=== PATIENT | male | born 1970 | race Caucasian/White ===

== ENCOUNTER → 2016-08-06 | Day surgery (SDC) | payer OTHER ==
[~2016-08-06] MED LIST: ATORVASTATIN CA10 M1 PO; AUGMENTIN 875-1 EACH PO; GLYBURIDE5 M1 PO; LISINOPRIL20 M1 PO; METFORMIN HCL1000 M1 PO; PERCOCET 5-3251 EACH PO; UNASYN 3 GM VIAL3 GM IV
--- NOTE | 2016-08-06 15:30 | Operative Report ---
Operative/Inv Procedure Report Surgery Date: 08/06/16 Name of Procedure: 1 split-thickness skin graft left foot 4 cm x 6 cm 2 negative pressure wound therapy left foot 3 intraoperative administration of ankle block anesthesia Pre-Operative Diagnosis: 1 nonhealing ulcer left foot 2 diabetic peripheral neuropathy Post-Operative Diagnosis: Same Estimated Blood Loss: scant Surgeon/Brake Operator: CHELA CROSS,ZAIN Perry, Chris Henderson Anesthesia: moderate sedation, block Operative/Procedure Note Note: After obtaining informed consent the patient was brought to the operating room placed on the operating table in supine position. The patient isn't securely fastened to the operating table utilizing safety belt. After administration of IV sedation, 10 mL of 0.5% Marcaine plain was infiltrated about the patient's left ankle. Left foot and ankle lower extremity within scrubbed prepped and draped in usual aseptic manner. Attention then directed distal medial left foot , where a 6 cm x 4 cm full-thickness lesion was identified. There was superficial slough overlying an otherwise uniformly granular wound bed. There is no probing or undermining identified. Minimal serous drainage identified. The wound there was curetted and then irrigated with 3 L normal sterile saline fissure 50,000 units of bacitracin. Following this, 1% lidocaine with epinephrine was infiltrated to the lateral left leg and a inch split- thickness skin graft was elevated. The graft was then maceration 1/2-1 was then fixated into the recipient site with skin kathleen at the margin followed by Adaptic and negative pressure wound therapy. The donor site was then dressed with bacitracin Xeroform and a dry sterile dressing. The patient is noted tolerate both procedure and anesthesia well and the patient was transported from the operating room to recovery by sent stable best assess intact all remaining digits left foot.
== END ==
LOC: STS 04:11
DX: E11.621 Type 2 diabetes mellitus with foot ulcer (principal); L97.522 Non-pressure chronic ulcer of other part of left foot with fat layer exposed; E11.42 Type 2 diabetes mellitus with diabetic polyneuropathy; Z79.84 Long term (current) use of oral hypoglycemic drugs; I10 Essential (primary) hypertension; F17.200 Nicotine dependence, unspecified, uncomplicated
CPT/HCPCS: J2001; J2250

== ENCOUNTER 2016-10-23 15:18 | Inpatient (IN) | payer OTHER ==
[~2016-10-23] VITALS: Ht 193 cm; Wt 106.6 kg
--- NOTE | 2016-10-23 17:41 | ED ANKLE/FOOT INJURY COMPLAINT ---
History of Present Illness General Chief Complaint: Lower Extremity Problems Stated Complaint: WOUND RT FOOT/SENT BY DANELLE Source: patient Exam Limitations: no limitations Vital Signs & Intake/Output Vital Signs & Intake/Output Vital Signs Date Time Temp Pulse Resp B/P Pulse O2 O2 Flow FiO2 Ox Delivery Rate 10/23 1907 98.0 92 16 136/74 99 Room Air 10/23 1542 99.0 105 16 149/87 96 Room Air Allergies Coded Allergies: venom-honey bee (UNKNOWN 07/05/16) Reconcile Medications Ampicillin Sodium/Sulbactam Na (Unasyn 3 Gm Vial) 3 GRAM VIAL 3 GM IV Q6 INFECTION Atorvastatin Calcium 10 MG TABLET 1 TAB PO QPM CHOLESTEROL (Reported) Glyburide 5 MG TABLET 1 TAB PO BID DIABETES (Reported) Lisinopril 20 MG TABLET 1 TAB PO DAILY HEART (Reported) Metformin HCl 1,000 MG TABLET 1 TAB PO BID DIABETES (Reported) Triage Note: PT STATES HIS RIGHT FOOT IS INFECTED AND PT WAS SENT IN BY DR. MCCLENDON FOR ADMISION FOR IV ABX Triage Nurses Notes Reviewed? yes Duration: day(s):, constant, getting worse Timing: recent history Severity: severe Pain/Injury Location: Right: Foot. No Modifying Factors: none HPI: 45-year-old male sent into emergency room for admission for infection to right foot. Patient is a diabetic and has chronic wounds on his right foot. Patient reports one opened up recently and has been having a foul-smelling discharge needs had associated redness the entire foot. Patient sees Dr. Fernandez at the wound care center. Dr. Tejeda sent the patient to be admitted for antibiotics and he will need surgical debridement. Moderate amount of pain to the right foot. Denies any other associated symptoms. (MARCIN VASQUEZ) Past History Travel History Traveled to [place] past 21 day No Medical History Any Pertinent Medical History? see below for history Neurological: NONE EENT: NONE Cardiovascular: hypertension Respiratory: NONE Hepatic: NONE Renal: NONE Musculoskeletal: osteomyelitis R GREAT TOE AMP Psychiatric: NONE Endocrine: diabetes Blood Disorders: NONE Cancer(s): NONE MORTGAGE CONSULTANT/Reproductive: NONE History of MRSA: Yes History of VRE: No History of CDIFF: No Surgical History Surgical History: appendectomy, right great toe amputation Psychosocial History Who do you live with Spouse Services at Home None What is your primary language Latvian Tobacco Use: Current Daily Use Daily Tobacco Use Amount/Type: => 5 Cigarettes daily ETOH Use: occasional use Illicit Drug Use: denies illicit drug use Family History Hx Contributory? No (MARCIN VASQUEZ) Review of Systems Review of Systems Constitutional: Reports: no symptoms. EENTM: Reports: no symptoms. Respiratory: Reports: no symptoms. Cardiovascular: Reports: no symptoms. GI: Reports: no symptoms. Genitourinary: Reports: no symptoms. Musculoskeletal: Reports: see HPI. Skin: Reports: see HPI. Neurological/Psychological: Reports: no symptoms. Hematologic/Endocrine: Reports: no symptoms. Immunologic/Allergic: Reports: no symptoms. All Other Systems: Reviewed and Negative (MARCIN VASQUEZ) Physical Exam Physical Exam General Appearance: well developed/nourished Head: atraumatic Eyes: Bilateral: normal appearance. Ears, Nose, Throat: normal ENT inspection, hearing grossly normal Neck: normal inspection Cardiovascular/Respiratory: no respiratory distress Back: normal inspection Leg/Knee/Thigh Left: normal inspection Leg/Knee/Thigh Right: normal inspection Foot Right: to open wounds to bottom of right foot, surrounding erythema warmth, foul-smelling discharge, Neuro/Vascular: normal motor function Psychiatric: awake, alert, oriented x 3 Skin: intact, normal color, warm/dry (MARCIN VASQUEZ) Progress Differential Diagnosis: cellulitis, septic arthritis, gout, fracture, dislocation, sprain, contusion, compartmental syndrome Plan of Care: Orders Procedure Date/time Status Consistent Carbohydrate 3 10/23 D Active Code Status 10/23 2216 Active EXTREMETIES OR SPEC 10/23 2116 Active Lab Add-on Test 10/24 2047 Active TRC EVALUATION (GEN) 10/24 2027 Active OXYGEN SETUP (GEN) 10/24 2027 Active Pathway - chart 10/24 2027 Active House Staff 10/24 2027 Active Patient Data 10/24 2027 Active FingerStick- Glucose 10/23 2006 Active Intake & Output 10/23 1903 Active Patient Data 10/23 1843 Active GLYCOSYLATED HGB 10/23 1754 Active EKG 10/23 1747 Active BLOOD CULTURE 10/23 1734 Active WESTERGREN SED RATE 10/23 1734 Complete C-REACTIVE PROTEIN 10/23 1734 Active CBC WITHOUT DIFFERENTIAL 10/23 173 Complete BASIC METABOLIC PANEL 10/23 1734 Active VTE Mechanical Prophylaxis 10/23 UNK Active Vital Signs 10/23 UNK Active MISTAKE 10/23 UNK Active Nursing Misc 10/23 UNK Active Hemoccult 10/23 UNK Active FingerStick- Glucose 10/23 UNK Active Current Medications Sig/Kory Start time Last Medication Dose Stop Time Status Admin Insulin Aspart 0 TIDAC 10/24 0800 UNVr (NovoLOG) Ampicillin Sodium/ 3,000 MG Q6 10/23 2359 UNVr Sulbactam Sodium (Unasyn) Sodium Chloride 100 ML (Normal Saline 0.9%) Dextrose/Sodium 1,000 ML Q13H 10/230 UNVr Chloride (D5W-1/2 Normal Saline 1000ML) Vancomycin HCl 1,000 MG DAILY 10/23 2157 UNir Sodium Chloride 250 ML (Normal Saline 0.9%) Laboratory Tests 10/23/16 1754: Anion Gap 13, Estimated GFR > 60, BUN/Creatinine Ratio 17.8, Glucose 73, Hemoglobin A1c Pending, Calcium 9.6, C-Reactive Prot, Quant > 9.0 H, CBC w Diff NO MAN DIFF REQ, RBC 4.80, MCV 88.9, MCH 29.0, RDW 14.5, MPV 6.7 L, Gran % 67.2 , Lymphocytes % 13.6 L, Monocytes % 9.2, Eosinophils % 9.5 H, Basophils % 0.5, Absolute Granulocytes 11.8 H, Absolute Lymphocytes 2.4, Absolute Monocytes 1.6 H, Absolute Eosinophils 1.7, Absolute Basophils 0.1, PUBS MCHC 32.6 L, ESR Westergren 69 H Microbiology 10/23 2116 EXTREMITIE: Gross Specimen Examination - RECD 10/23 2116 EXTREMITIE: Gram Stain - RECD 10/23 2099 EXTREMITIE: Gross Specimen Examination - CAN Cancelled: Cancelled via OE: ERROR 10/23 2099 EXTREMITIE: Gram Stain - CAN Cancelled: Cancelled via OE: ERROR 10/23 182 BLOOD: Blood Culture - RECD 10/23 1753 BLOOD: Blood Culture - RECD Diagnostic Imaging: Viewed by Me: Radiology Read. Discussed w/RAD: Radiology Read. Radiology Impression: SERVICE DATE: 10/23/16-173 EXAM TYPE: RAD - XRY-FOOT COMPLETE, R EXAMINATION: XR FOOT, RIGHT CLINICAL INFORMATION: Open wound bottom of right foot rule out osteomyelitis COMPARISON: Right foot films from 2016 TECHNIQUE: 3 views of the right foot of the right foot. FINDINGS: The first metatarsal and phalanges are absent. There is an old healed fracture of the distal second metatarsal. Heterotopic bone is seen in the soft tissues medial to the second metatarsal. All of these findings are similar to the previous examination. There is some soft tissue swelling and ulceration in the ball of the right foot between the second and third metatarsal phalangeal joints. This is similar in appearance to the prior study. There is some increased soft tissue edema. No progressive or acute bone erosion to suggest osteomyelitis is seen at this time. Early changes of osteomyelitis may not be radiographically apparent. IMPRESSION: Films of the right foot show soft tissue ulceration and soft tissue swelling at the ball of the foot between the second and third metatarsal phalangeal joints. This is similar to prior study. No radiographic evidence for acute osteomyelitis at this time. Early changes may not be radiographically apparent.. DICTATED BY: RYANNE FROST MD DATE/TIME DICTATED:10/23/161906 RESILIENT TILE INSTALLER:ASMITA DATE/TIME TRANSCRIBED:10/23/161906 Initial ED EKG: normal intervals, normal p-waves, normal QRS complex, normal sinus rhythm, rate (90) (MARCIN VASQUEZ) Departure Departure Disposition: STILL A PATIENT Condition: Stable Clinical Impression Primary Impression: Complicated wound infection Secondary Impressions: Cellulitis of foot Referrals: KARTHIK GIBSON (PCP/Family) Departure Forms: Customer Survey General Discharge Information Admission Note Spoke With: KIMBERLY BOBO,[place] Forrest Documentation of Exam: Documentation of any treatments & extenuating circumstances including Concerns Regarding Discharge (functional status, medication knowledge or non-compliance, living conditions, etc.) that warrant an admission rather than observation: Patient will require surgical debridement. IV antibiotics. Diabetes management. (MARCIN VASQUEZ) PA/GROUND TRANSPORTATION OPERATOR Co-Sign Statement Statement: ED Attending supervision documentation- [] I saw and evaluated the patient. I have also reviewed all the pertinent lab results and diagnostic results. I agree with the findings and the plan of care as documented in the PA's/GROUND TRANSPORTATION OPERATOR's documentation. [X] I have reviewed the ED Record and agree with the PA's/GROUND TRANSPORTATION OPERATOR's documentation. [] Additions or exceptions (if any) to the PAs/GROUND TRANSPORTATION OPERATOR's note and plan are summarized below: [] (LEAH BOBO,DANIEL Hawk)
[2016-10-23 18:16] LABS: ABSOLUTE BASOPHIL COUNT 0.1 /CUMM (0.0-0.2); ABSOLUTE EOSINOPHIL COUNT 1.7 /CUMM (0.0-0.7); ABSOLUTE GRANULOCYTE CT 11.8 /CUMM (1.4-6.5); ABSOLUTE LYMPH COUNT 2.4 /CUMM (1.2-3.4); ABSOLUTE MONOCYTE COUNT 1.6 /CUMM (0.10-0.60); BASOPHIL % 0.5 % (0.0-2.0); EOSINOPHIL % 9.5 % (0-5); GRANULOCYTE % 67.2 % (42.2-75.2); HEMATOCRIT 42.7 % (42-52); MEAN CORPUSCULAR HGB CONC 32.6 G/DL (33.0-37.0); MEAN CORPUSCULAR VOLUME 88.9 FL (80.0-94.0); MEAN PLATELET VOLUME 6.7 FL (7.4-10.4); PLATELET COUNT 415 /CUMM (130-400); RBC DISTRIBUTION WIDTH 14.5 % (11.5-14.5); WHITE BLOOD CELL COUNT 17.6 /CUMM (4.8-10.8)
--- NOTE | 2016-10-23 19:16 | RADIOLOGY REPORT ---
EXAMINATION: XR FOOT, RIGHT CLINICAL INFORMATION: Open wound bottom of right foot rule out osteomyelitis COMPARISON: Right foot films from 10/17/2016 TECHNIQUE: 3 views of the right foot of the right foot. FINDINGS: The first metatarsal and phalanges are absent. There is an old healed fracture of the distal second metatarsal. Heterotopic bone is seen in the soft tissues medial to the second metatarsal. All of these findings are similar to the previous examination. There is some soft tissue swelling and ulceration in the ball of the right foot between the second and third metatarsal phalangeal joints. This is similar in appearance to the prior study. There is some increased soft tissue edema. No progressive or acute bone erosion to suggest osteomyelitis is seen at this time. Early changes of osteomyelitis may not be radiographically apparent. IMPRESSION: Films of the right foot show soft tissue ulceration and soft tissue swelling at the ball of the foot between the second and third metatarsal phalangeal joints. This is similar to prior study. No radiographic evidence for acute osteomyelitis at this time. Early changes may not be radiographically apparent..
--- NOTE | 2016-10-23 20:50 | History & Physical ---
URVASHI ELLIOTT 10/23/162046: General Information and HPI MD Statement: I have seen and personally examined MARILEE WOODWARD and documented this H&P. The patient is a 45 year old M who presented with a patient stated chief complaint of right foot infection. 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 Curry for evaluation of the right foot infection. According to the patient, he has nonhealing diabetic ulcers on the plantar aspect of right foot. However he noticed a new blister on the plantar aspect of right foot. He took the picture and sent to Dr. Curry and he was advised to come to the clinic. Yesterday he was seen by Dr. Curry at the clinic and was advised to go to the emergency room to get IV antibiotic and surgical debridement. Patient reports chills, denies any fever. He denied any trauma to the foot. Denied any bites, scratching. He reports no drainage at the site of blister. Foot was red and inflamed. Denies any pain at the site of ulcer. Associated with redness, warmth and subjective chills. Of note patient has history of diabetes for 20 years. He takes gliburide and metformin at home. According to the patient his blood sugars were under control. He was never hypoglycemic. His blood sugars were below 150. His last HbA1c was 6.3. Compliant with the diet and medications He denied any chest pain, shortness of breath, palpitations, nausea, vomiting, diarrhea, constipation, abdominal pain, leg swelling. He follows Dr. [facility]. Allergies/Medications Allergies: Coded Allergies: venom-honey bee (UNKNOWN 07/05/16) Home Med list Ampicillin Sodium/Sulbactam Na (Unasyn 3 Gm Vial) 3 GRAM VIAL 3 GM IV Q6 INFECTION Atorvastatin Calcium 10 MG TABLET 1 TAB PO QPM CHOLESTEROL (Reported) Glyburide 5 MG TABLET 1 TAB PO BID DIABETES (Reported) Lisinopril 20 MG TABLET 1 TAB PO DAILY HEART (Reported) Metformin HCl 1,000 MG TABLET 1 TAB PO BID DIABETES (Reported) Compliance With Home Meds: GOOD Past History Travel History Traveled to [place] past 21 day No Medical History Neurological: NONE EENT: NONE Cardiovascular: hypertension Respiratory: NONE Hepatic: NONE Renal: NONE Musculoskeletal: osteomyelitis R GREAT TOE AMP Psychiatric: NONE Endocrine: diabetes Blood Disorders: NONE Cancer(s): NONE 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 Denies: diaphoresis, fever, malaise, weakness, unexplained weight loss. EENTM: Denies: no symptoms. Cardiovascular: Denies: chest pain, edema, orthopena, palpitations, peripheral edema, syncope. Respiratory: Denies: cough, hemoptysis, orthopnea, short of breath, sputum production, stridor. GI: Denies: abdominal pain, constipation, diarrhea, nausea, changes in stool, vomiting. Genitourinary: Denies: frequency, hematuria. Musculoskeletal: Denies: back pain, joint pain. Skin: Denies: erythema. Neurological/Psychological: Denies: headache, numbness, tingling, tremors. Exam & Diagnostic Data Last 24 Hrs of Vital Signs/I&O Vital Signs Date Time Temp Pulse Resp B/P Pulse O2 O2 Flow FiO2 Ox Delivery Rate 10/23 1907 98.0 92 16 136/74 99 Room Air 10/23 1542 99.0 105 16 149/87 96 Room Air Intake & Output 10/23 1600 10/23 0800 10/23 0000 Intake Total Output Total Balance Patient 106.594 kg Weight Physical Exam General Appearance Alert, Oriented X3, Cooperative, No Acute Distress Skin No Rashes, No Breakdown HEENT Atraumatic, PERRLA, EOMI, Mucous Membr. moist/pink Neck Supple, No JVD, No thryomegaly Lymphatic Axillary nl, Cervical nl Cardiovascular Regular Rate, Normal S1, Normal S2 Lungs Clear to Auscultation Abdomen Normal Bowel Sounds, Soft, No Tenderness Neurological Strength at 5/5 X4 Ext, Normal Tone, Sensation Intact, Cranial Nerves 3-12 NL, Reflexes 2+ Extremities No Clubbing, No Cyanosis, No Edema, Normal Pulses, non healing ulcer and blister on right foot, red and inflamed, no drainage Vascular Normal Pulses Last 24 Hrs of Labs/Dany: Laboratory Tests 10/23/161753: Anion Gap 13, Estimated GFR > 60, BUN/Creatinine Ratio 17.8, Glucose 73, Hemoglobin A1c Pending, Calcium 9.6, C-Reactive Prot, Quant > 9.0 H, CBC w Diff NO MAN DIFF REQ, RBC 4.80, MCV 88.9, MCH 29.0, RDW 14.5, MPV 6.7 L, Gran % 67.2 , Lymphocytes % 13.6 L, Monocytes % 9.2, Eosinophils % 9.5 H, Basophils % 0.5, Absolute Granulocytes 11.8 H, Absolute Lymphocytes 2.4, Absolute Monocytes 1.6 H, Absolute Eosinophils 1.7, Absolute Basophils 0.1, PUBS MCHC 32.6 L, ESR Westergren 69 H Microbiology 10/23 2116 EXTREMITIE: Gross Specimen Examination - RECD 10/23 2116 EXTREMITIE: Gram Stain - RECD 10/23 2099 EXTREMITIE: Gross Specimen Examination - CAN Cancelled: Cancelled via OE: ERROR 10/23 2099 EXTREMITIE: Gram Stain - CAN Cancelled: Cancelled via OE: ERROR 10/23 1824 BLOOD: Blood Culture - RECD 10/23 1753 BLOOD: Blood Culture - RECD Diagnostic Data EKG Results Normal sinus rhythm, no acute ST-T wave changes Assessment/Plan Assessment: Patient is a 45-year-old gentleman with a past medical history significant for type 2 diabetes mellitus, 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 Curry for evaluation of the right foot infection. According to the patient, he has nonhealing diabetic ulcers on the plantar aspect of right foot. However he noticed a new blister on the plantar aspect of right foot. He took the picture and sent to Dr. Curry and he was advised to come to the clinic. Yesterday he was seen by Dr. Curry at the clinic and was advised to go to the emergency room to get IV antibiotic and surgical debridement. Vitals on admission-afebrile, tachycardic 105, respiratory rate 16, blood pressure 149/87, saturating at 96% on room air. On examination right lower extremity has 1 cm deep ulcer in between second and third metatarsal, blister below that ulcer without any discharge, redness, warmth, nontender. Right great toe was amputated. Left great toe was amputated. Peripheral pulses were present. Labs leukocytosis and elevated CRP. Foot x-ray -Films of the right foot show soft tissue ulceration and soft tissue swelling at the ball of the foot between the second and third metatarsal phalangeal joints. This is similar to prior study. No radiographic evidence for acute osteomyelitis at this time. Problem list 1. Diabetic foot infection 2. Diabetes mellitus 3. Hypertension 4. Hyperlipidemia 5. 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 * Admitted to general med floor for further management and surgical debridement * Monitor vitals closely * Monitor for any fever, chills, worsening pain at the site of ulcer * He is status post open incision and drainage and excisional debridement * On IV antibiotic-IV vancomycin and IV Unasyn as patient has history of mrsa right fourth in the past * Pain medication if necessary * IV fluids * We'll obtain blood cultures twice * We'll monitor CBC in the morning * X-ray ruled out osteomyelitis * Will get MRI foot if necessary * Will follow up with Dr. Patricio martinez type 2 diabetes: Patient has decreased sensation in lower extremities, likely diabetic peripheral neuropathy, last hemoglobin A1c 7.5 (June 2016). Per patient, he measures his blood glucose levels daily and is compliant with his oral diabetic medications including metformin and glyburide. He is glucose levels ranging between 100 to 130s. Has never experienced episode of hypoglycemia. Patient received IV dextrose before OR, repeat fingerstick was 89. * Accu-Cheks before each meal and at bedtime * Insulin sliding scale. * Will hold oral diabetes medications. * Diabetic diet Hypertension Continue home dose of lisinopril Hyperlipidemia Continue home dose of statin DVT prophylaxis: Subcutaneous heparin CODE STATUS: Patient is full code. Diabetic diet Pain medication if necessary As Ranked By This Provider Problem List: 1. Cellulitis of foot 2. Complicated wound infection Core Measures/Miscellaneous Acute Coronary Syndrome ACS Diagnosis: No Cerebrovascular Accident CVA/TIA Diagnosis: No Congestive Heart Failure CHF Diagnosis: No Venous Thromboembolism VTE Risk Factors: Age > 40, Smoking, Surgery No [facility] VTE prophylaxis d/t: No contraindications No VTE Pharm Prophylaxis d/t: No contraindications VTE Diagnosis: No VTE Type: NONE VTE Confirmed by (Test): NONE Severe Sepsis Severe Sepsis Present: No Septic Shock Septic Shock Present: No Miscellaneous Documentation Attending Case Discussed With: shaun Primary Care Physician: KARTHIK GIBSON Patient sees these Specialists vascular surgeon Level of Patient Care: General Medicine JAMEY ANAYA 10/23/16 2135: Resident Review Statement Resident Statement: examined this patient, discussed with graphic design intern, agreed with graphic design intern, reviewed EMR data (avail), reviewed images Other Findings: This is a 45-year-old gentleman with past medical history significant for type 2 diabetes (diagnosed when he was 22 years old), MRSA osteomyelitis, status post amputation of right great toe and left great toe, hyperlipidemia, hypertension who presented to the hospital with nonhealing right lower extremity wound with blister for 2 days. Please see above for more details. VSS, NAD, AAO 3, HEENT: HNCAT, PERRLA, EOMI, neck: Supple, no LAD CV: RRR, no murmur. Lungs: CTA BL. Abdomen: Normal bowel sounds, soft, NT, ND. Extremities: Weak pulses lower extremities bilaterally. Left foot status post right great toe amputation. Right foot status post right great toe amputation, deep ulcer present between the second and third metatarsal 1-1.5 cm dimension, no pus, blister noted below the ulcer. Right lower extremity is erythematous. Decreased sensation in lower extremities. Labs on admission significant for leukocytosis (17.6), hemoglobin 13.9, platelet 415, fingerstick blood glucose level 54. Foot x-ray on admission showed soft tissue ulceration and soft tissue swelling at the ball of the foot between the second and third metatarsal phalangeal joints. No radiographic evidence for acute osteomyelitis. Patient received IV dextrose and was taken to the OR for debridement. Problem list/plan: #1 right lower extremity nonhealing ulcer: Status post open I&D and excision or debridement, will obtain blood cultures 2, will start the patient on IV vancomycin and IV Unasyn pending cultures. Consider MRI, patient will benefit from ankle brachial index measurement. Patient is not complaining of the pain at the moment. Adequate pain management with when necessary Tylenol and oxycodone. Would consult wound care. #2 type 2 diabetes: Patient has decreased sensation in lower extremities, likely diabetic peripheral neuropathy, last hemoglobin A1c 7.5 (June 2016). Per patient, he measures his blood glucose levels daily and is compliant with his oral diabetic medications including metformin and glyburide. He is glucose levels ranging between 100 to 130s. Has never experienced episode of hypoglycemia. Patient received IV dextrose before OR, repeat fingerstick was 89. Will start the patient on was containing IV fluids. Will check blood glucose levels closely. Insulin sliding scale. Will hold oral diabetes medications. #4 DVT prophylaxis: Subcutaneous heparin #5 continue home medications of statin and lisinopril. #6 CODE STATUS: Patient is full code. #Smoking cessation counseling done. BRAD DOAN 10/23/16 2350: Attending MD Review Statement Attending Statement Attending MD Statement: examined this patient, discuss w/resident/PA/FLOWER POT PRESS OPERATOR, agreed w/resident/PA/FLOWER POT PRESS OPERATOR, reviewed EMR data (avail), reviewed images, amended to note Attending Assessment/Plan: CC: right foot wound PMH: DM, HTN, HLD, current smoker Patient came to ER for admission for infection to right foot. Patient has chronic nonhealing ulcer on his right foot. Patient sees Dr. Fernandez at the wound care center. He started to develop second blister just below the first ulcer since 2 days, he did not have any pain, felt as if there was a stone in his shoe, walked on that wound for 1 day, then removed the issues and saw the blister. It is associated with redness, warmth, subjective chills. Patient denies any new trauma, bites, fever, discharge through the wound. He discussed it with Dr. Tejeda who sent him to ER to be admitted for antibiotics and possible surgical debridement. Vitals: T max 99.0, tachycardic otherwise vitals stable. A O 3, cooperative, no acute distress, neck supple, no JVD, no lymphadenopathy, mucosa moist, no focal neurological deficit, no dependent edema, CVS: S1-S2, RRR. RS: Clear to auscultate bilaterally. Abdomen: Soft, NT, ND, bowel sounds present. Right lower extremity has one and half centimeter deep ulcer in between second and third metatarsal, there is a blister below that ulcer without any pus discharge, mild fluctuation, red, warm, tender. Rest of the right lower extremity has mild edema, redness, increased warmth as compared to left lower extremity. Amputated toe on the right side and on the left side. Periphery pulses present but decreased, perfusion normal. Labs: WBC 17.6, with neutrophils 67%, eosinophils 9%, platelets 415, creatinine 0.9, BUN 16, CRP more than 9. Right foot x-ray: Films of the right foot show soft tissue ulceration and soft tissue swelling at the ball of the foot between the second and third metatarsal phalangeal joints. This is similar to prior study. No radiographic evidence for acute osteomyelitis at this time. Early changes may not be radiographically apparent. A and P #1 diabetic foot infection: (Hx of Left great toe amputation June 2016, right great toe amputation May 2013 , secondary to osteomyelitis) chronic nonhealing ulcer on the right foot on plantar aspect, a new blister on seeing foot just below the previous ulcer, x-ray shows no evidence of osteomyelitis, high index of suspicion for osteomyelitis. Admit to general medicine floor, Patient underwent debridement, after debridement the resident vancomycin and Unasyn as patient has history of MRSA on the right foot. Mixed infection is very possible with diabetic foot. Await for culture to tailor the antibiotic. Meanwhile patient will benefit from MRI of right foot, to decide the duration of antibiotic for suspected osteomyelitis. Will appreciate Dr. Fernandez's input in this situation. Adequate pain control, wound care consult. Blood cultures if not sent, gentle hydration D5 1/2 NS, Advance diet after the surgery. Patient will benefit from MELVIN. counseled regarding smoking sensation #2 DM: continue short acting slinding scale insulin , with Accu-Cheks before meals and at bedtime, hold oral hypoglycemics #3 HTN: Resume his antihypertensive medications from tomorrow
--- NOTE | 2016-10-23 21:56 | Operative Report ---
Operative/Inv Procedure Report Surgery Date: 10/23/16 Name of Procedure: 1 open incision and drainage deep to the D fashion with exposure of the flexor tendon and tendon sheath multiple sites right foot 2 intraoperative administration of ankle block anesthesia 3 excisional debridement Pre-Operative Diagnosis: 1 plantar space abscess right foot 2 diabetic peripheral neuropathy Post-Operative Diagnosis: The same Estimated Blood Loss: less than 50ml Surgeon/Seafood Specialist: ZAIN YORK DPM Anesthesia: moderate sedation, block Operative/Procedure Note Note: After obtaining informed consent the patient was brought to the operating room and placed on the operating table in the supine position. The patient was then securely fastened to the operating table utilizing a safety belt. After administration of IV sedation, 10 mL of 0.5% Marcaine plain was infiltrated about the patient's right ankle. Right foot and ankle within scrubbed prepped and draped in usual aseptic manner. Attention directed the plantar foot, where a necrotic was identified centrally extending from a chronic ulceration. This was noted to track along the flexor tendons proximally by 12-14 cm. A 10 blade was utilized to incise the necrotic region proximally. The dissection was then carried down deep to the D fashion with exposure of the flexor tendon and tendon sheath multiple sites, both proximally and distally. All necrotic nonviable infected tissue sharply evacuated from the wound bed. Soft tissue specimen was sent for microbiologic inspection. Clinically, there was no obvious exposed bone. Nipple was then irrigated with 3 L of normal sterile saline infusion 50, 000 units of bacitracin. Following this, the foot was redraped and the surgeon' s top gloves were exchanged for clean gloves. Any bleeding vessels identified were cauterized or ligated as encountered. Nipple was then packed with iodoform and 20 9 nylon retention sutures were placed. Foot was then dressed with 4 x 4' s EBD pad Kerlix and an Roe wrap. The patient was noted to tolerate both procedure and anesthesia well and the patient was transported from the operating room to recovery with vital signs stable.
[2016-10-23 22:00] VITALS: BP 122/72
--- NOTE | 2016-10-23 23:52 | Admission Certification ---
Admission Certification Certification Statement - As attending physician, I certify that at the time of - admission, based on clinical presentation, severity of - symptoms, need for further diagnostic testing and - therapeutic interventions, and risk of adverse outcomes - without in-hospital treatment, in my clinical assessment, - this patient requires an acute hospital stay for a minimum - of two nights or longer. I have also considered psychsocial - factors such as support system, advanced age, financial - issues, cognitive issues, and failed out-patient treatments, - past re-admission history, safety of patient, and lack of - compliance as applicable. Specific rationale supporting this admission is: Diabetic foot infection
[2016-10-24 00:05] VITALS: BP 130/76
[2016-10-24 02:30] VITALS: BP 126/70
[2016-10-24 04:30] VITALS: BP 120/72
--- NOTE | 2016-10-24 07:07 | PN- Housestaff ---
Subjective Follow-up For: Suspected Osteomyelitis of right foot Complaints: no complaints Subjective: Be followed up and examined the patient today. He is resting comfortably in the bed, has bilateral dressings over his feet, is comfortable, not in any acute distress. He offers no complaint, vitals have been stable and no issues overnight. Review of Systems Constitutional: Reports: no symptoms. EENTM: Reports: no symptoms. Cardiovascular: Reports: no symptoms. Respiratory: Reports: no symptoms. Gastrointestinal: Reports: no symptoms. Genitourinary: Reports: no symptoms. Musculoskeletal: Reports: no symptoms. Skin: Reports: no symptoms. Neurological/Psychological: Reports: no symptoms. Hematologic/Endocrine: Reports: no symptoms. Objective Last 24 Hrs of Vital Signs/I&O Vital Signs Date Time Temp Pulse Resp B/P Pulse O2 O2 Flow FiO2 Ox Delivery Rate 10/24 1732 98.1 87 18 130/70 98 Room Air 10/24 1140 Room Air Room Air 10/24 1102 95 16 122/78 10/24 0954 98.3 90 20 124/80 95 Room Air 10/24 0430 98.4 89 18 120/72 98 Room Air 10/24 0230 98.5 84 18 126/70 98 Room Air 10/24 0005 98.6 80 20 130/76 97 Room Air 10/23 2200 98.2 84 18 122/72 96 Room Air 10/23 1907 98.0 92 16 136/74 99 Room Air Intake & Output 10/24 1600 10/24 0800 10/24 0000 Intake Total 1125 900 Output Total Balance 1125 900 Intake, IV 525 700 Intake, Oral 600 200 Patient 106.594 kg Weight Physical Exam General Appearance: Alert, Oriented X3, Cooperative Other Physical Findings: General Appearance Alert, Oriented X3, Cooperative, No Acute Distress HEENT Atraumatic, PERRLA, EOMI, Mucous Membr. moist/pink Neck Supple, No JVD, No thryomegaly Lymphatic Axillary nl, Cervical nl Cardiovascular Regular Rate, Normal S1, Normal S2 Lungs Clear to Auscultation Abdomen Normal Bowel Sounds, Soft, No Tenderness Neurological Strength at 5/5 X4 Ext, Normal Tone, Sensation Intact, Cranial Nerves 3-12 NL, Reflexes 2+ Extremities Edema+ b/l, non healing ulcer and blister on right foot, red and inflamed, no drainage, currently well dressed. Vascular Normal Pulses Current Medications: Current Medications Sig/Kory Start time Last Medication Dose Route Stop Time Status Admin Acetaminophen 650 MG Q8P PRN 10/23 2300 AC PO Ampicillin Sodium/ 3,000 MG Q6H 10/24 0230 AC 10/24 Sulbactam Sodium IV 0819 Sodium Chloride 100 ML Ampicillin Sodium/ 3,000 MG Q6 10/23 2359 DC Sulbactam Sodium IV Sodium Chloride 100 ML Atorvastatin Calcium 10 MG QPM 10/24 2200 AC PO Dextrose 25 GM ONCE ONE 10/23 2014 DC 10/23 IV 10/23 Dextrose/Sodium 1,000 ML Q13H 10/23 2230 DC 10/23 Chloride IV 2346 Dextrose/Water 100 ML .Q1H 10/23 2014 DC 10/23 IV 10/23 2213 2017 Heparin Sodium 5,000 UNIT Q8 10/23 2256 AC 10/24 (Porcine) SC 0654 Insulin Aspart 0 TIDAC 10/24 0800 AC 10/24 SC 10/24 2355 1644 Insulin Human Regular 0 Q6 10/24 2359 AC SC Lisinopril 20 MG DAILY 10/24 1000 AC 10/24 PO 1102 Oxycodone HCl 5 MG Q8P PRN 10/23 2330 AC 10/23 PO 2358 Oxycodone HCl 5 MG Q8P PRN 10/23 2300 DC PO Vancomycin HCl 1,500 MG 0600,1800 10/24 1800 CAN Sodium Chloride 250 ML IV Vancomycin HCl 1,000 MG DAILY 10/24 1000 DC Sodium Chloride 250 ML IV Vancomycin HCl 1,000 MG DAILY 10/24 0300 DC 10/24 Sodium Chloride 250 ML IV 0339 Vancomycin HCl 1,000 MG DAILY 10/23 2330 DC Sodium Chloride 250 ML IV Last 24 Hrs of Lab/Dany Results Last 24 Hrs of Labs/Mics: Microbiology 10/23 2116 EXTREMITIE: Gross Specimen Examination - RES GRAM POSITIVE COCCI 10/23 2116 EXTREMITIE: Gram Stain - RES 10/23 2099 EXTREMITIE: Gross Specimen Examination - CAN Cancelled: Cancelled via OE: ERROR 10/23 2099 EXTREMITIE: Gram Stain - CAN Cancelled: Cancelled via OE: ERROR 10/23 1825 BLOOD: Blood Culture - RES Assessment/Plan Assessment: 43-year-old man with past medical history of diabetes, history of osteomyelitis of both feet, with amputation of both great toes done separately 3 and half years ago on right and 3 months ago on left respectively, came into the emergency department after being referred from the wound care center where he was being followed up for a blister over his chronic nonhealing ulcer to rule out osteomyelitis of his feet. He is currently being managed in the general medical floor for the following issues: #Possible osteomyelitis of right foot -Patient received debridement of bilateral feet last night with a sample sent to lab for Gram stain he and gross examination. I could not find an order for culture of the specimen from yesterday. -Patient has been receiving Unasyn, and vancomycin has been discontinued as per infectious disease suggestion from today. ID consult appreciated. -We will await blood cultures report and try to narrow down antibiotics accordingly. -Patient is awaiting MRI today and is planned to be operated upon tomorrow in the morning for revision of one and ? Bone biopsy #Diabetes mellitus -Accu-Cheks 3 times a day and at bedtime, insulin sliding scale, diabetic diet -Nothing by mouth from midnight and insulin Novolin sliding scale, and every 6 hours Accu-Cheks for tonight after midnight since he is having surgery tomorrow morning #Hypertension -Continue lisinopril as his home medication #Diet -Diabetic diet, nothing by mouth from midnight, awaiting surgery tomorrow morning #DVT prophylaxis with subcutaneous heparin #Full CODE STATUS Problem List: 1. Osteomyelitis of foot Pain Ratin Pain Location: right foot Pain Goal: Pain 4 or less Pain Plan: prn Tomorrow's Labs & Rationales: CBC, INR, and BEP to check for sepsis, bleeding risk for surgery, and electrolyte disbalance
[2016-10-24 09:54] VITALS: BP 124/80
--- NOTE | 2016-10-24 13:38 | PN- Podiatry ---
Subjective Subjective: Patient seen at bedside with no acute complaints. Patient denies nausea vomiting fever chills. Patient admits to some minimal plantar left foot pain, which is however well controlled with by mouth analgesics. Objective Vital Signs and I&Os Vital Signs Date Time Temp Pulse Resp B/P Pulse O2 O2 Flow FiO2 Ox Delivery Rate 10/24 1140 Room Air Room Air 10/24 1102 95 16 122/78 10/24 0954 98.3 90 20 124/80 95 Room Air 10/24 0430 98.4 89 18 120/72 98 Room Air 10/24 0230 98.5 84 18 126/70 98 Room Air 10/24 0005 98.6 80 20 130/76 97 Room Air 10/23 2200 98.2 84 18 122/72 96 Room Air 10/23 1907 98.0 92 16 136/74 99 Room Air 10/23 1542 99.0 105 16 149/87 96 Room Air Intake & Output 10/24 1600 10/24 0800 10/24 0000 10/23 1600 10/23 0800 10/23 0000 Intake Total 900 Output Total Balance 900 Intake, IV 700 Intake, Oral 200 Patient 235 lb 235 lb Weight Physical Exam: Dressing left foot clean dry and intact. No strikethrough identified. No pain with deep palpation bilateral lower extremities. Assessment/Plan Assessment/Plan Cellulitis left foot. Patient for MRI to rule out osteomyelitis. Patient to the OR tomorrow for revision with closure versus negative pressure wound therapy. Core Measures/Miscellaneous Venous Thromboembolism VTE Risk Factors: Age > 40, Surgery VTE Contraindications: No Contraindications VTE Diagnosis: No VTE Type: NONE VTE Confirmed by (Test): NONE Beta Sal Is Beta Sal a Home Med? No Antibiotics Is Patient on Antibiotics? Yes If Yes: infection Attending MD Review Statement Attending Statement Attending MD Statement: examined this patient
--- NOTE | 2016-10-24 14:21 | Cons- Infect Disease ---
General Information and HPI Consulting Request Date of Consult: 10/24/16 Requested By: ZAIN YORK DPM Reason for Consult: Rule out osteomyelitis of the right foot Source of Information: patient, old records History of Present Illness: This is a 45-year-old man with diabetes, status post amputation of the right great toe 3-1/2 years prior to admission for MRSA osteomyelitis, status post I&D to the deep fascia 5 months prior to admission of bilateral plantar ulcers, with MRIs negative at that time, with delayed closure and placement of a flap on the left wound and application of a total contact cast on the right foot, hospitalized 3 months prior to admission with 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 On admission he was afebrile. Laboratory data revealed a white blood cell count of 18,000, ESR 69, BUN/creatinine 16 and 0.9. X-ray of the right foot revealed soft tissue swelling with no evidence for osteomyelitis. He was taken to the OR for an I&D to the deep fascia, with drainage of a plantar space abscess, but with no obvious exposed bone. Postop he was begun on Unasyn and given 1 dose of Vancomycin. He has remained afebrile. He notes mild discomfort in the right foot but is otherwise without complaints. Allergies/Medications Allergies: Coded Allergies: venom-honey bee (UNKNOWN 07/05/16) Home Med List: Ampicillin Sodium/Sulbactam Na (Unasyn 3 Gm Vial) 3 GRAM VIAL 3 GM IV Q6 INFECTION Atorvastatin Calcium 10 MG TABLET 1 TAB PO QPM CHOLESTEROL (Reported) Glyburide 5 MG TABLET 1 TAB PO BID DIABETES (Reported) Lisinopril 20 MG TABLET 1 TAB PO DAILY HEART (Reported) Metformin HCl 1,000 MG TABLET 1 TAB PO BID DIABETES (Reported) Past History Travel History Traveled to [place] past 21 day No Medical History Blood Transfusion Hx: No Neurological: NONE EENT: NONE Cardiovascular: hypertension Respiratory: NONE Hepatic: NONE Renal: NONE Musculoskeletal: osteomyelitis R GREAT TOE and left great toe Psychiatric: NONE Endocrine: diabetes Blood Disorders: NONE Cancer(s): NONE [employer]ER/Reproductive: NONE History of MRSA: Yes History of VRE: No History of CDIFF: No Isolation History: Contact Surgical History Surgical History: appendectomy, right great toe amputation, left great toe amputation Psychosocial History Services at Home: None Smoking Status: Current Everyday Smoker ETOH Use: occasional use Illicit Drug Use: denies illicit drug use Review of Systems Review of Systems All Other Systems: Reviewed and Negative Exam & Diagnostic Data Last 24 Hrs of Vital Signs/I&O Vital Signs Date Time Temp Pulse Resp B/P Pulse O2 O2 Flow FiO2 Ox Delivery Rate 10/24 1140 Room Air Room Air 10/24 1102 95 16 122/78 10/24 0954 98.3 90 20 124/80 95 Room Air 10/24 0430 98.4 89 18 120/72 98 Room Air 10/24 0230 98.5 84 18 126/70 98 Room Air 10/24 0005 98.6 80 20 130/76 97 Room Air 10/23 2200 98.2 84 18 122/72 96 Room Air 10/23 1907 98.0 92 16 136/74 99 Room Air 10/23 1542 99.0 105 16 149/87 96 Room Air Intake & Output 10/24 1600 10/24 0800 10/24 0000 Intake Total 900 Output Total Balance 900 Intake, IV 700 Intake, Oral 200 Patient 235 lb Weight Physical Exam Other Physical Findings: He is awake and alert in no acute distress. He is afebrile. Skin reveals no rash. HEENT exam is negative. Neck is supple with no adenopathy. Lungs are clear. Heart regular rhythm with no murmur. Abdomen is soft, nontender with positive bowel sounds. Back no CVA tenderness. Extremities left foot well- healed wound over the left great toe amputation site; right foot dressing intact , with no erythema or edema of the right leg. Neuro is without focality. Last 24 Hours of Lab Results: Laboratory Tests 10/23 1754 Chemistry Sodium (137 - 145 mmol/L) 139 Potassium (3.5 - 5.1 mmol/L) 4.1 Chloride (98 - 107 mmol/L) 100 Carbon Dioxide (22 - 30 mmol/L) 26 Anion Gap (5 - 16) 13 BUN (9 - 20 mg/dL) 16 Creatinine (0.7 - 1.2 mg/dL) 0.9 Estimated GFR (>60 ml/min) > 60 BUN/Creatinine Ratio (7 - 25 %) 17.8 Glucose (65 - 99 mg/dL) 73 Hemoglobin A1c (4.2 - 5.8 %) 7.6 H Calcium (8.4 - 10.2 mg/dL) 9.6 C-Reactive Prot, Quant (<1.0 mg/dL) > 9.0 H Hematology CBC w Diff NO MAN DIFF REQ WBC (4.8 - 10.8 /CUMM) 17.6 H RBC (4.70 - 6.10 /CUMM) 4.80 Hgb (14.0 - 18.0 G/DL) 13.9 L Hct (42 - 52 %) 42.7 MCV (80.0 - 94.0 FL) 88.9 MCH (27.0 - 31.0 PG) 29.0 RDW (11.5 - 14.5 %) 14.5 Plt Count (130 - 400 /CUMM) 415 H MPV (7.4 - 10.4 FL) 6.7 L Gran % (42.2 - 75.2 %) 67.2 Lymphocytes % (20.5 - 51.1 %) 13.6 L Monocytes % (1.7 - 9.3 %) 9.2 Eosinophils % (0 - 5 %) 9.5 H Basophils % (0.0 - 2.0 %) 0.5 Absolute Granulocytes (1.4 - 6.5 /CUMM) 11.8 H Absolute Lymphocytes (1.2 - 3.4 /CUMM) 2.4 Absolute Monocytes (0.10 - 0.60 /CUMM) 1.6 H Absolute Eosinophils (0.0 - 0.7 /CUMM) 1.7 Absolute Basophils (0.0 - 0.2 /CUMM) 0.1 PUBS MCHC (33.0 - 37.0 G/DL) 32.6 L ESR Westergren (0 - 10 MM) 69 H Last 24 Hours of Dany Results: OR culture labeled soft tissue right foot positive for gram-positive cocci Blood cultures October 23 negative Diagnostic Data Recent Imaging Findings: X-ray of the right foot October 23 revealed soft tissue swelling with no evidence for osteomyelitis. Assessment/Plan Assessment/Plan Impression: This is a 45-year-old man with diabetes, status post amputation of the right great toe 3 and 1/2 years prior to admission and the left great toe 3 months prior to admission, both for osteomyelitis, admitted on October 23 with a nonhealing plantar ulcer of the right foot, found to be afebrile with a leukocytosis, with x-ray negative for osteomyelitis, now status post I&D of the wound to the deep fascia yesterday. Given the history of a chronic nonhealing ulcer osteomyelitis must be considered despite the negative x-ray, and an MRI is scheduled for later today. He is scheduled for a return to the OR in the a.m. for wound revision, and if the MRI does suggest osteomyelitis he will require debridement of the bone. His preliminary OR culture is growing gram-positive cocci, and he can be continued on Unasyn pending the final culture. Suggestion: 1. Await MRI of the right foot 2. Await return to the OR in the a.m., with revision of the wound and possible debridement of the bone based on above 3. Discontinue Vancomycin 4. Continue Unasyn 3 g IV every 6 hours pending above Consult Acknowledgment - Thank you for your consult request.
--- NOTE | 2016-10-24 16:01 | MRI REPORT ---
EXAMINATION: MRI RIGHT FOOT WITHOUT CONTRAST CLINICAL INFORMATION: Necrotic ulcer at plantar aspect of right foot. Evaluate for osteomyelitis. COMPARISON: MRI of the right foot from 05/16/2016. Radiographs of the foot from 10/23/2016. TECHNIQUE: Noncontrast multiplanar, multisequence MRI of the right foot was performed on a high-field 1.5 Ethel magnet. Short axis and sagittal T1-weighted, and multiplanar STIR pulse sequences were acquired. FINDINGS: A deep soft tissue ulcer at the plantar aspect of the forefoot has increased in size compared to 05/17/2016. The ulcer currently measures 1.3 cm deep, 2.5 cm wide and extends over a longitudinal distance of approximately 5 cm. The ulcer extends into the inferior aspect of the flexor digitorum brevis muscle. Edema is present within surrounding soft tissues; however, no focal fluid collection is identified. No evidence of tenosynovitis. The first ray is amputated at the level of the first TMT joint. A focus of heterotopic ossification is seen within soft tissues at the site of resected great toe metatarsal. There is old, hypertrophic callus formation of the second metatarsal. Findings are consistent with healing of a remote, displaced metatarsal fracture. Also, there is an old, healed fracture of the neck of the third metatarsal. 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 There is minimal edema-like signal intensity within bone marrow of the third and fourth metatarsal heads. However, the T1-weighted images show well preserved fat marrow signal intensity within the metatarsals and phalanges. There is no imaging evidence of osteomyelitis. The chronic, edema-like signal intensity involving muscles of the foot could be sequela of diabetic neuropathy. IMPRESSION: 1. Large ulcer at the plantar aspect of the forefoot has increased in size compared to 05/16/2016. 2. No evidence of soft tissue abscess or osteomyelitis.
[2016-10-24 17:32] VITALS: BP 130/70
[2016-10-24 22:35] VITALS: BP 118/70
[2016-10-25 06:42] VITALS: BP 134/80
--- NOTE | 2016-10-25 07:26 | PN- Housestaff ---
Subjective Follow-up For: Right foot osteomyelitis Complaints: no complaints Subjective: Stable, comfortable, no complaints, waiting for surgery Review of Systems Constitutional: Reports: no symptoms. Cardiovascular: Reports: no symptoms. Respiratory: Reports: no symptoms. Gastrointestinal: Reports: no symptoms. Musculoskeletal: Reports: no symptoms. Skin: Reports: no symptoms (no change). Objective Last 24 Hrs of Vital Signs/I&O Vital Signs Date Time Temp Pulse Resp B/P Pulse O2 O2 Flow FiO2 Ox Delivery Rate 10/25 0847 81 134/80 10/25 0642 98.0 81 18 134/80 97 Room Air 10/24 2235 98.1 87 19 118/70 97 Room Air Intake & Output 10/25 1600 10/25 0800 10/25 0000 Intake Total 150 580 Output Total 450 Balance -450 150 580 Intake, IV 150 100 Intake, Oral 480 Output, Urine 450 Patient 106.594 kg Weight Physical Exam General Appearance: Alert, Oriented X3, Cooperative, No Acute Distress Other Physical Findings: General Appearance: Alert, Oriented X3, Cooperative Other Physical Findings: General Appearance Alert, Oriented X3, Cooperative, No Acute Distress HEENT Atraumatic, PERRLA, EOMI, Mucous Membr. moist/pink Neck Supple, No JVD, No thryomegaly Lymphatic Axillary nl, Cervical nl Cardiovascular Regular Rate, Normal S1, Normal S2 Lungs Clear to Auscultation Abdomen Normal Bowel Sounds, Soft, No Tenderness Neurological Strength at 5/5 X4 Ext, Normal Tone, Sensation Intact, Cranial Nerves 3-12 NL, Reflexes 2+ Extremities Edema+ b/l, non healing ulcer and blister on right foot, red and inflamed, no drainage, currently well dressed. Vascular Normal Pulses Current Medications: Current Medications Sig/Kory Start time Last Medication Dose Route Stop Time Status Admin Acetaminophen 650 MG Q8P PRN 10/23 2300 AC PO Amoxicillin/ 875 MG Q12 10/25 2200 UNVr Clavulanate Potassium PO / 2300 Ampicillin Sodium/ 3,000 MG Q6H 10/24 0230 DC 10/25 Sulbactam Sodium IV 1549 Sodium Chloride 100 ML Atorvastatin Calcium 10 MG QPM 10/24 2200 AC 10/24 PO 2130 Heparin Sodium 5,000 UNIT Q8 10/23 2256 AC 10/25 (Porcine) SC 1549 Insulin Aspart 0 TIDAC 10/25 1700 AC SC Insulin Aspart 0 TIDAC 10/24 0800 DC 10/24 SC 10/24 2355 1644 Insulin Human Regular 0 Q6 10/24 2359 DC 10/25 SC 0642 Lisinopril 20 MG DAILY 10/24 1000 AC 10/25 PO 0847 Oxycodone HCl 5 MG Q8P PRN 10/23 2330 AC 10/25 PO 0847 Patient Medication 1 ED .STK-MED ONE 10/25 1357 RI Teaching ED 10/25 1358 Last 24 Hrs of Lab/Dany Results Last 24 Hrs of Labs/Mics: Laboratory Tests 10/25/16 0710: Anion Gap 7, Estimated GFR > 60, BUN/Creatinine Ratio 21.1, PT 12.2, INR 1.16, CBC w Diff NO MAN DIFF REQ, RBC 4.61 L, MCV 89.0, MCH 28.8, RDW 14.4, MPV 6.6 L, Gran % 55.8, Lymphocytes % 20.5, Monocytes % 12.0 H, Eosinophils % 11.2 H, Basophils % 0.5, Absolute Granulocytes 5.4, Absolute Lymphocytes 2.0, Absolute Monocytes 1.2 H, Absolute Eosinophils 1.1, Absolute Basophils 0, PUBS MCHC 32.4 L Assessment/Plan Assessment: 43-year-old man with past medical history of diabetes, history of osteomyelitis of both feet, with amputation of both great toes done separately 3 and half years ago on right and 3 months ago on left respectively, came into the emergency department after being referred from the wound care center where he was being followed up for a blister over his chronic nonhealing ulcer to rule out osteomyelitis of his feet. He is currently being managed in the general medical floor for the following issues: #Superficial tissue infection of right foot, suspicion of osteomyelitis -Patient received debridement of bilateral feet on 10/24/16 with a sample sent to lab for Gram stain he and gross examination. No bone tissue seemed infected and the MRI was also negative for any signs of osteomyelitis. -Discontinued Unasyn. Started patient on Augmentin post-operatively per infectious disease suggestion from today. ID consult appreciated. -The report of blood culture is a mixed of [place] with alpha strep, enterococcus, mixed anaerobic gram-negative magnus. Sensitivity has not arrived yet, will follow. #Diabetes mellitus -Accu-Cheks 3 times a day and at bedtime, insulin NovoLog sliding scale, diabetic diet #Hypertension -Continue lisinopril as his home medication #Diet -Diabetic diet #DVT prophylaxis with subcutaneous heparin #Full CODE STATUS Problem List: 1. Cellulitis of foot Pain Ratin Pain Location: foot when and if present Pain Goal: Remain pain free Pain Plan: prn Tomorrow's Labs & Rationales: CBC, BEP to follow for his infection, blood loss, and electrolytes
[2016-10-25 09:16] LABS: PT 12.2 SEC (9.4-12.5)
[2016-10-25 09:27] LABS: ABSOLUTE BASOPHIL COUNT 0 /CUMM (0.0-0.2); ABSOLUTE EOSINOPHIL COUNT 1.1 /CUMM (0.0-0.7); ABSOLUTE GRANULOCYTE CT 5.4 /CUMM (1.4-6.5); ABSOLUTE MONOCYTE COUNT 1.2 /CUMM (0.10-0.60); BASOPHIL % 0.5 % (0.0-2.0); EOSINOPHIL % 11.2 % (0-5); GRANULOCYTE % 55.8 % (42.2-75.2); MEAN CORPUSCULAR HGB 28.8 PG (27.0-31.0); MEAN CORPUSCULAR HGB CONC 32.4 G/DL (33.0-37.0); MEAN PLATELET VOLUME 6.6 FL (7.4-10.4); PLATELET COUNT 444 /CUMM (130-400); RBC DISTRIBUTION WIDTH 14.4 % (11.5-14.5); RED BLOOD CELL CT 4.61 /CUMM (4.70-6.10); WHITE BLOOD CELL COUNT 9.8 /CUMM (4.8-10.8)
--- NOTE | 2016-10-25 13:57 | Operative Report ---
Operative/Inv Procedure Report Surgery Date: 10/25/16 Name of Procedure: 1 incision and drainage deep to the D fashion with exposure of the flexor tendon and tendon sheath multiple sites right foot 2 delayed primary closure of open surgical wound with local random advancement flap right foot 3 intraoperative administration of ankle block anesthesia 4 excisional debridement Pre-Operative Diagnosis: 1 open necrotic wound right foot 2 diabetic peripheral neuropathy Post-Operative Diagnosis: The same Estimated Blood Loss: less than 50ml Surgeon/Electronics Assembler: ZAIN YORK DPM Anesthesia: moderate sedation, block Operative/Procedure Note Note: After obtaining informed consent the patient was brought to the operating room and placed on the operating table in the supine position. The patient isn't securely fastened to the operating table utilizing safety belt. After administration of IV sedation, 10 mL of 0.5% Marcaine plain was infiltrated about the right ankle. The right foot and ankle within scrubbed prepped and draped in usual aseptic manner. To the plantar right foot, where a large full- thickness necrotic was identified. Lesion was noted to measure 8 cm x 3 cm. There was deep fascia and flexor tendon and expose. A 15 blade visualized sharply revised skin margins. The dissection was then carried down deep to the deep fashion with exposure of the flexor tendon and tendon sheath multiple sites , both proximally and distally. All necrotic nonviable infected tissue sharply evacuated from the wound bed. The open wound was then irrigated with 3 L of normal sterile saline infusion 50,000 units of bacitracin. Following this, the foot was redraped and the surgeon's top gloves were changed clean gloves. Any bleeding vessels identified were cauterized or ligated as encountered. The adjacent tissues were then mobilized with undermining and advancement towards the central aspect of the wound. The deep side was held with 2-0 Vicryl and the subtenons tissues reapproximated with 3-0 Vicryl. The skin is then reapproximated with 2-0 nylon and skin kathleen. Incision was dressed with Xeroform 4 x 4's Kerlix and an Roe wrap. The patient was noted to tolerate both procedure and anesthesia well and the patient was transported from the operating room to recovery via signs stable.
[2016-10-25 16:00] VITALS: BP 120/80
--- NOTE | 2016-10-25 16:26 | PN- Infect Dx ---
Subjective Subjective: Afebrile. He notes mild discomfort in the right foot Objective Last 24 Hrs of Vital Signs/I&O Vital Signs Date Time Temp Pulse Resp B/P Pulse O2 O2 Flow FiO2 Ox Delivery Rate 10/25 0847 81 134/80 10/25 0642 98.0 81 18 134/80 97 Room Air 10/24 2235 98.1 87 19 118/70 97 Room Air 10/24 1732 98.1 87 18 130/70 98 Room Air Intake & Output 10/25 1600 10/25 0800 10/25 0000 Intake Total 150 580 Output Total 450 Balance -450 150 580 Intake, IV 150 100 Intake, Oral 480 Output, Urine 450 Patient 235 lb Weight Physical Exam Other Physical Findings: He appears comfortable in no acute distress Extremities right foot dressing intact Results Last 24 Hours of Lab Results: Laboratory Tests 10/25 0710 Chemistry Sodium (137 - 145 mmol/L) 137 Potassium (3.5 - 5.1 mmol/L) 5.3 H Chloride (98 - 107 mmol/L) 103 Carbon Dioxide (22 - 30 mmol/L) 28 Anion Gap (5 - 16) 7 BUN (9 - 20 mg/dL) 19 Creatinine (0.7 - 1.2 mg/dL) 0.9 Estimated GFR (>60 ml/min) > 60 BUN/Creatinine Ratio (7 - 25 %) 21.1 Coagulation PT (9.4 - 12.5 SEC) 12.2 INR (0.90 - 1.17) 1.16 Hematology CBC w Diff NO MAN DIFF REQ WBC (4.8 - 10.8 /CUMM) 9.8 RBC (4.70 - 6.10 /CUMM) 4.61 L Hgb (14.0 - 18.0 G/DL) 13.3 L Hct (42 - 52 %) 41.0 L MCV (80.0 - 94.0 FL) 89.0 MCH (27.0 - 31.0 PG) 28.8 RDW (11.5 - 14.5 %) 14.4 Plt Count (130 - 400 /CUMM) 444 H MPV (7.4 - 10.4 FL) 6.6 L Gran % (42.2 - 75.2 %) 55.8 Lymphocytes % (20.5 - 51.1 %) 20.5 Monocytes % (1.7 - 9.3 %) 12.0 H Eosinophils % (0 - 5 %) 11.2 H Basophils % (0.0 - 2.0 %) 0.5 Absolute Granulocytes (1.4 - 6.5 /CUMM) 5.4 Absolute Lymphocytes (1.2 - 3.4 /CUMM) 2.0 Absolute Monocytes (0.10 - 0.60 /CUMM) 1.2 H Absolute Eosinophils (0.0 - 0.7 /CUMM) 1.1 Absolute Basophils (0.0 - 0.2 /CUMM) 0 PUBS MCHC (33.0 - 37.0 G/DL) 32.4 L Last 24 Hours of Dany Results: OR culture labeled soft tissue of the right foot positive for alpha strep, Enterococcus and an anaerobic gram-negative magnus Blood cultures 2 October 23 negative Recent Imaging Studies: MRI of the right foot October 24 no evidence of osteomyelitis Assessment/Plan Impression: Stable status post delayed primary closure of the wound on his right foot earlier today. He remains afebrile and white blood cell count is now normal on Unasyn for a polymicrobial infection, presumably only of the soft tissues, with the MRI negative for osteomyelitis. The chronicity of his wound does raise concern for osteomyelitis, and he will need to be followed closely after discharge for this possibility. Suggestion: 1. Continue Unasyn, with change to Augmentin 875 mg po every 12 hours if remains stable to complete a seven-day course of antibiotics postop
[2016-10-25 22:56] VITALS: BP 100/60
[2016-10-26 06:56] VITALS: BP 104/62
[2016-10-26 08:27] LABS: ABSOLUTE BASOPHIL COUNT 0.1 /CUMM (0.0-0.2); ABSOLUTE EOSINOPHIL COUNT 1.1 /CUMM (0.0-0.7); ABSOLUTE LYMPH COUNT 2.2 /CUMM (1.2-3.4); ABSOLUTE MONOCYTE COUNT 1.3 /CUMM (0.10-0.60); BASOPHIL % 0.6 % (0.0-2.0); GRANULOCYTE % 63.1 % (42.2-75.2); HEMATOCRIT 38.9 % (42-52); MEAN CORPUSCULAR HGB 28.9 PG (27.0-31.0); MEAN CORPUSCULAR HGB CONC 32.8 G/DL (33.0-37.0); MEAN CORPUSCULAR VOLUME 88.2 FL (80.0-94.0); MEAN PLATELET VOLUME 6.8 FL (7.4-10.4); PLATELET COUNT 414 /CUMM (130-400); RBC DISTRIBUTION WIDTH 14.1 % (11.5-14.5); RED BLOOD CELL CT 4.41 /CUMM (4.70-6.10); WHITE BLOOD CELL COUNT 12.6 /CUMM (4.8-10.8)
--- NOTE | 2016-10-26 10:55 | PN- Housestaff ---
Subjective Follow-up For: Foot osteomyelitis Subjective: Patient is seen and examined at bedside. Patient does not endorse any acute complaints including fever, chills, nausea, vomiting, abdominal pain, chest pain , palpitation , or dysuria. No acute overnight event reported by nursing staff. Review of Systems Constitutional: Reports: no symptoms. Objective Last 24 Hrs of Vital Signs/I&O Vital Signs Date Time Temp Pulse Resp B/P Pulse O2 O2 Flow FiO2 Ox Delivery Rate 10/26 1100 77 110/80 10/26 0656 97.9 71 20 104/62 94 Room Air 10/25 2256 98.3 76 20 100/60 93 Room Air 10/25 1600 98.2 67 18 120/80 98 Room Air Intake & Output 10/26 1600 10/26 0800 10/26 0000 Intake Total 360 360 Output Total 400 400 Balance -40 -40 Intake, Oral 360 360 Output, Urine 400 400 Physical Exam General Appearance: Alert, Oriented X3, Cooperative Other Physical Findings: Neck Supple, No JVD, No thryomegaly Lymphatic Axillary nl, Cervical nl Cardiovascular Regular Rate, Normal S1, Normal S2 Lungs Clear to Auscultation Abdomen Normal Bowel Sounds, Soft, No Tenderness Neurological Strength at 5/5 X4 Ext, Normal Tone, Sensation Intact, Cranial Nerves 3-12 NL, Reflexes 2+ Extremities Edema+ b/l, non healing ulcer and blister on right foot, red and inflamed, no drainage, currently well dressed. Vascular Normal Pulses Current Medications: Current Medications Sig/Kory Start time Last Medication Dose Route Stop Time Status Admin Acetaminophen 650 MG Q8P PRN 10/23 2300 AC PO Amoxicillin/ 875 MG Q12 10/26 2199 AC Clavulanate Potassium PO Amoxicillin/ 875 MG Q12 10/25 2200 DC 10/25 Clavulanate Potassium PO 10/29 2300 2110 Ampicillin Sodium/ 3,000 MG ONCE ONE 10/26 1030 DC 10/26 Sulbactam Sodium IV 10/26 1059 1100 Sodium Chloride 100 ML Ampicillin Sodium/ 3,000 MG Q6H 10/24 0230 DC 10/25 Sulbactam Sodium IV 1549 Sodium Chloride 100 ML Atorvastatin Calcium 10 MG QPM 10/24 2200 AC 10/25 PO 2110 Heparin Sodium 5,000 UNIT Q8 10/23 2256 AC 10/26 (Porcine) SC 0600 Insulin Aspart 0 TIDAC 10/25 1700 AC 10/26 SC 1255 Lisinopril 20 MG DAILY 10/24 1000 AC 10/26 PO 1100 Oxycodone HCl 5 MG Q8P PRN 10/23 2330 AC 10/25 PO 1809 Oxycodone/ 1 TAB Q6P PRN 10/25 2100 AC 10/26 Acetaminophen PO 0603 Last 24 Hrs of Lab/Dany Results Last 24 Hrs of Labs/Mics: Laboratory Tests 10/26/16 0700: Anion Gap 7, Estimated GFR > 60, BUN/Creatinine Ratio 22.5, CBC w Diff NO MAN DIFF REQ, RBC 4.41 L, MCV 88.2, MCH 28.9, RDW 14.1, MPV 6.8 L, Gran % 63.1, Lymphocytes % 17.1 L, Monocytes % 10.2 H, Eosinophils % 9.0 H, Basophils % 0.6, Absolute Granulocytes 8.0 H, Absolute Lymphocytes 2.2, Absolute Monocytes 1.3 H, Absolute Eosinophils 1.1, Absolute Basophils 0.1, PUBS MCHC 32.8 L Assessment/Plan Assessment: 43-year-old man with past medical history of diabetes, history of osteomyelitis of both feet, with amputation of both great toes done separately 3 and half years ago on right and 3 months ago on left respectively, came into the emergency department after being referred from the wound care center where he was being followed up for a blister over his chronic nonhealing ulcer to rule out osteomyelitis of his feet. He is currently being managed in the general medical floor for the following issues: #Superficial tissue infection of right foot, suspicion of osteomyelitis -Patient received debridement of bilateral feet on 10/24/16 with a sample sent to lab for Gram stain he and gross examination. No bone tissue seemed infected and the MRI was also negative for any signs of osteomyelitis. Trending up of wbc's noted today, the patient remains afebrile. Will trend WBC tomorrow morning. -Discontinued Unasyn. Started patient on Augmentin post-operatively per infectious disease suggestion from yesterday. ID consult appreciated. -The report of blood culture is a mixed of [place] with alpha strep, enterococcus, mixed anaerobic gram-negative magnus. Sensitivity has not arrived yet, will follow. #Diabetes mellitus -Accu-Cheks 3 times a day and at bedtime, insulin NovoLog sliding scale, diabetic diet #Hypertension -Continue lisinopril as his home medication #Diet -Diabetic diet #DVT prophylaxis with subcutaneous heparin #Full CODE STATUS Problem List: 1. Osteomyelitis of foot Pain Ratin Pain Location: Right foot Pain Goal: Pain 4 or less Pain Plan: Per pain pathway Tomorrow's Labs & Rationales: CBC-trending leukocytosis
[2016-10-26] MEDS ORDERED: PERCOCET 5-3251 EACH PO (13:03)
[2016-10-26] MEDS ORDERED: AUGMENTIN 875-1 EACH PO (13:03)
--- NOTE | 2016-10-26 13:14 | Surgical Discharge Summary ---
Visit Information Visit Dates Admission Date: 10/23/16 Discharge Date: 10/26/16 History of Present Illness Chief Complaint: Mr. Graham is a 45 year old diabetic male with a long history of a non-healing ulcer plantar right foot. 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 Spouse Services at Home: None What is Your Primary Language? Maltese ETOH Use: occasional use Review of Systems: Unremarkable except for that noted in history of present illness. Hospital Course Course Attending Physician: ZAIN YORK DPM Primary Care Physician: KARTHIK GIBSON [facility] Course: Mr. Graham Allergies: Coded Allergies: venom-honey bee (UNKNOWN 07/05/16) Disposition Summary Disposition Principal Diagnosis: Cellulitis right lower extremity Additional Diagnosis: Plantar space abscess right foot Discharge Disposition: home or self care Discharge Instructions General Discharge Information Code Status: Full Code Patient's Diet: 2200 kcal ADA diet Patient's Activity: Strict non-weight bearing right foot Follow-Up Instructions/Appts: Follow up with Dr. York next week. Medications at Discharge Discharge Medications: Stop taking the following medications: Ampicillin Sodium/Sulbactam Na (Unasyn 3 Gm Vial) 3 GRAM VIAL INTRAVEN EVERY SIX HOURS Days = 28 Continue taking these medications: Metformin HCl (Metformin HCl) 1,000 MG TABLET 1 Tablet ORAL TWICE DAILY Qty = 180 Comments: NOT GIVEN IN HOSPITAL ALTERNATIVE- NOVOLOG SS COVERAGE PROVIDED WHILE IN HOSPITAL Atorvastatin Calcium (Atorvastatin Calcium) 10 MG TABLET 1 Tablet ORAL Every night Qty = 90 Comments: Last Taken: 05/09/16 Time: 7PM Lisinopril (Lisinopril) 20 MG TABLET 1 Tablet ORAL DAILY Qty = 90 Comments: Last Taken: 07/10/16 Time: 9 AM Glyburide (Glyburide) 5 MG TABLET 1 Tablet ORAL TWICE DAILY Qty = 60 Comments: NOT GIVEN IN HOSPITAL ALTERNATIVE NOVOLOG SS COVERAGE GIVEN WHILE IN HOSPITAL Start taking the following new medications: Amoxicillin/Potassium Clav (Augmentin 875-125 Tablet) 875 MG-125 MG TABLET 1 Tablet ORAL TWICE DAILY Qty = 14 No Refills Oxycodone HCl/Acetaminophen (Percocet 5-325 MG Tablet) 5 MG-325 MG TABLET 1 Tablet ORAL EVERY 6 HOURS NEEDED as needed for PAIN SCALE 4-6 (MODERATE ) Qty = 60 No Refills Attending MD Review Statement Attending Statement Attending MD Statement: examined this patient
[2016-10-26 14:34] VITALS: BP 134/80
== END 2016-10-26 15:00 | DRG 623 ==
LOC: ENRESERVTM → ENRESERVDT → ERH 15:18 → ER-OR 15:46 → ERH 15:46 → 2NA 21:51 → PACUH 21:51 → 2NA 23:07
PROVIDERS: Physician Assistant Medical; ADMIT Podiatrist Foot & Ankle Surgery
PROC: 0JBQ0ZZ Excision of Right Foot Subcutaneous Tissue and Fascia, Open Approach (ICD-10-PCS; principal; 2016-10-23)
PROC: 0JBQ0ZZ Excision of Right Foot Subcutaneous Tissue and Fascia, Open Approach (ICD-10-PCS; 2016-10-25)
PROC: 0J9Q0ZZ Drainage of Right Foot Subcutaneous Tissue and Fascia, Open Approach (ICD-10-PCS; 2016-10-25)
PROC: 0JXQ0ZB Transfer Right Foot Subcutaneous Tissue and Fascia with Skin and Subcutaneous Tissue, Open Approach (ICD-10-PCS; 2016-10-25)
DX: E11.621 Type 2 diabetes mellitus with foot ulcer (principal); M86.9 Osteomyelitis, unspecified; E11.42 Type 2 diabetes mellitus with diabetic polyneuropathy; L97.411 Non-pressure chronic ulcer of right heel and midfoot limited to breakdown of skin; E11.69 Type 2 diabetes mellitus with other specified complication; Z79.4 Long term (current) use of insulin; I10 Essential (primary) hypertension; F17.200 Nicotine dependence, unspecified, uncomplicated; E78.5 Hyperlipidemia, unspecified
CPT/HCPCS: 2NAP; 75657; 87070; 87075; 73630-RT; 82436; 87040; 87071; 87147; 93005; 93010; 96374; J1644; J1815; J2001; J2250; J2405; J3010; J3370; J7040; J7042

== ENCOUNTER 2017-10-03 02:47 | Inpatient (IN) | payer OTHER ==
--- NOTE | 2017-10-02 20:05 | History & Physical Pre-Op ---
General Information and HPI History of Present Illness: Chris is a 46-year-old diabetic male with a history of poorly controlled glucose, who presented to the office with a new onset ulceration involving his left second digit. The patient states lesion began as a blister progressed with swelling, redness and drainage. The patient denies systemic signs of infection. The patient denies nausea vomiting fever chills. Allergies/Medications Allergies: Coded Allergies: venom-honey bee (UNSURE IF ALLERGIC TO BEE STINGS PER PT 10/02/17) Home Med list Atorvastatin Calcium 10 MG TABLET 1 TAB PO QPM CHOLESTEROL (Reported) Glyburide 5 MG TABLET 1 TAB PO BID DIABETES (Reported) Lisinopril 10 MG TABLET 1 TAB PO DAILY BP (Reported) Metformin HCl 1,000 MG TABLET 1 TAB PO BID DIABETES (Reported) Sulfamethoxazole/Trimethoprim (Bactrim Ds Tablet) 800 MG-160 MG TABLET 1 TAB PO BID ABX (Reported) Past History Medical History Neurological: NONE EENT: NONE Cardiovascular: hypertension, hyperlipidemia Respiratory: NONE Gastrointestinal: NONE Hepatic: NONE Renal: NONE Musculoskeletal: osteomyelitis R GREAT TOE and left great toe Psychiatric: NONE Endocrine: diabetes Blood Disorders: NONE Cancer(s): 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 Psychosocial History Services at Home None Review of Systems Review of Systems: Unremarkable except for that noted s illness Exam & Diagnostic Data Last 24 Hrs of Vital Signs/I&O Intake & Output / 1600 03/08 0800 03/08 0000 Intake Total Output Total Balance Patient 215 lb Weight Physical Exam: Lungs clear bilaterally. Heart sounds rate and rhythm regular. Lower extremity physical exam demonstrates intact pedal pulses bilaterally. Both dorsalis pedis and posterior tibial arteries are palpable bilaterally. Patient with a sensory deficit identified in a moccasin type distribution to the bilateral feet. Patient with flexion contractures identified at the lesser digits bilaterally. Patient noted to have a Dennis grade 3 ulceration to the distal second ray with slough overlying a mixed granular fibrotic wound bed. There is probing identified centrally with exposed bone identified. There is cellulitis extending proximal to the metatarsophalangeal joint. Assessment/Plan Assessment/Plan: Left foot osteomyelitis. A lengthy discussion reviewing both surgical and conservative options was held the patient at bedside and the patient elects to go forward with surgery despite the risks. As Ranked By This Provider Problem List: 1. Other acute osteomyelitis, left ankle and foot Attending MD Review Statement Attending Statement Attending MD Statement: examined this patient
[~2017-10-03] VITALS: Ht 193 cm; Wt 102.1 kg
[~2017-10-03 02:47] MED LIST changes: +BACTRIM DS TAB1 EACH PO; +CEFTRIAXONE2 G2 IV; +LISINOPRIL10 M1 PO
[2017-10-03 11:07] LABS: ABSOLUTE BASOPHIL COUNT 0.1 /CUMM (0.0-0.2); ABSOLUTE EOSINOPHIL COUNT 0.5 /CUMM (0.0-0.7); ABSOLUTE GRANULOCYTE CT 8.5 /CUMM (1.4-6.5); ABSOLUTE LYMPH COUNT 3.3 /CUMM (1.2-3.4); BASOPHIL % 0.4 % (0.0-2.0); EOSINOPHIL % 3.6 % (0-5); GRANULOCYTE % 63.5 % (42.2-75.2); HEMATOCRIT 45.8 % (42-52); MEAN CORPUSCULAR HGB 29.9 PG (27.0-31.0); MEAN CORPUSCULAR HGB CONC 33.3 G/DL (33.0-37.0); MEAN CORPUSCULAR VOLUME 89.6 FL (80.0-94.0); MEAN PLATELET VOLUME 6.6 FL (7.4-10.4); PLATELET COUNT 425 /CUMM (130-400); RBC DISTRIBUTION WIDTH 14.5 % (11.5-14.5); RED BLOOD CELL CT 5.12 /CUMM (4.70-6.10); WHITE BLOOD CELL COUNT 13.4 /CUMM (4.8-10.8)
--- NOTE | 2017-10-03 13:31 | Operative Report ---
Operative/Inv Procedure Report Surgery Date: 10/03/17 Name of Procedure: 1 open incision and drainage deep to the D fashion with exposure of the extensor and flexor tendon and tendon sheath multiple sites left foot 2 amputation second digit left foot 3 intraoperative administration of ankle block anesthesia 4 excisional debridement Pre-Operative Diagnosis: 1 open necrotic wound left foot 2 osteomyelitis left foot 3 diabetic peripheral neuropathy Post-Operative Diagnosis: The same Estimated Blood Loss: less than 50ml Surgeon/Surface Plate Inspector: Marino Fernandez DPM Anesthesia: moderate sedation, block Operative/Procedure Note Note: After obtaining informed consent the patient was brought to the operating room and placed on the operating table in the supine position. The patient isn't securely fastened to the operating table utilizing safety belt. After administration of IV sedation, 10 mL of 0.5% Marcaine plain was infiltrated about the patient's left ankle. Left foot and ankle within scrubbed prepped and draped in usual aseptic manner. Attention was directed to the left foot, where a large full-thickness necrotic was identified. A 15 blade visualized sharply revised skin margins. Dissection was then carried down deep to the deep fascia with exposure of the extensor and flexor tendon and tendon sheath multiple sites left foot. All necrotic nonviable infected tissue sharply evacuated from the wound bed. A racquet type incision compassing second digit metatarsophalangeal joint was then marked out with a skin marker. The digit was disarticulated and passed from the operative field. Specimen was sent for both microbiologic and pathologic inspection. Nipple was then irrigated with 3 L normal sterile saline fissure 50,000 units of bacitracin. Following this, the foot was redraped and the surgeon's top was changed clean gloves. Any bleeding vessels identified were cauterized lace encountered. Nipple was then packed with iodoform and 3-0 nylon retention sutures were placed. The foot was dressed with 4 x 4's Kerlix and Roe wrap. Patient noted tolerable to procedure and anesthesia well and the patient was transported from the operating room to recovery with vital signs stable.
[2017-10-03 16:02] VITALS: BP 124/62
[2017-10-03 22:24] VITALS: BP 120/78
[2017-10-04 06:04] VITALS: BP 144/86
--- NOTE | 2017-10-04 11:12 | Cons- Medical ---
Monse Fleming MD 10/04/17 1102: General Information and HPI Consulting Request Date of Consult: 10/04/17 Requested By: Marino Fernandez DPM Reason for Consult: Medical comanagement of diabetes, hypertension and osteomyelitis Source of Information: patient, old records Exam Limitations: no limitations History of Present Illness: 46-year-old male with poorly controlled type 2 diabetes who presented 2 days ago with new onset of left second toe ulceration. Ulceration started as a progressive blister/swelling with increasing redness and drainage. He was initially treated with oral antibiotics for about 2 weeks without marked improvement prior to admission, foot MRI was done which confirmed possible osteomyelitis of the left second toe. He denies any systemic symptoms. Patient has had MRSA in the past. He has a past history of osteomyelitis of the right great toe and the left great toe. 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 Patient is status post I&D an excisional debridement and amputation of his second toe on the left foot yesterday without complication and is stable. Blood glucose in the past 24 hours have ranged from 137-195 and patient is on subcutaneous insulin sliding scale and metformin. According to podiatry there was a clean margin for following amputation of the affected toe but patient will be brought back next week Friday for closure. Patient ambulating without issues post op. Only c/o of a mild soreness on the left foot. Allergies/Medications Allergies: Coded Allergies: venom-honey bee (UNSURE IF ALLERGIC TO BEE STINGS PER PT 10/02/17) Home Med List: Atorvastatin Calcium 10 MG TABLET 1 TAB PO QPM CHOLESTEROL (Reported) Glyburide 5 MG TABLET 1 TAB PO BID DIABETES (Reported) Lisinopril 10 MG TABLET 1 TAB PO DAILY BP (Reported) Metformin HCl 1,000 MG TABLET 1 TAB PO BID DIABETES (Reported) Sulfamethoxazole/Trimethoprim (Bactrim Ds Tablet) 800 MG-160 MG TABLET 1 TAB PO BID ABX (Reported) Current Medications: Current Medications Sig/Kory Start time Last Medication Dose Route Stop Time Status Admin Ampicillin Sodium/ 3,000 MG Q6 10/03 1800 AC 10/04 Sulbactam Sodium IV 0525 Sodium Chloride 100 ML Atorvastatin Calcium 10 MG 1700 10/03 1700 AC 10/03 PO 1744 Cefazolin Sodium 2,000 MG ONCE 10/03 0000 DC IV 10/03 2359 Heparin Sodium 5,000 UNIT Q8 10/03 2200 AC 10/04 (Porcine) SC 0525 Insulin Aspart 0 TIDAC 10/03 1700 AC 10/04 SC 0742 Lisinopril 10 MG DAILY 10/04 1000 AC 10/04 PO 0742 Meperidine HCl 50 MG .STK-MED ONE 10/03 1422 DC IM 10/03 1423 Meperidine HCl 50 MG .STK-MED ONE 10/03 1330 DC IM 10/03 1331 Metformin HCl 1,000 MG 0800,1700 10/03 1700 AC 10/04 PO 0742 Morphine Sulfate 4 MG .STK-MED ONE 10/03 1501 DC IM 10/03 1502 Morphine Sulfate 4 MG .STK-MED ONE 10/03 1422 DC IM 10/03 1423 Morphine Sulfate 4 MG .STK-MED ONE 10/03 1331 DC IM 10/03 1332 Past History Medical History Blood Transfusion Hx: No Neurological: NONE EENT: NONE Cardiovascular: hypertension, hyperlipidemia Respiratory: NONE Gastrointestinal: NONE Hepatic: NONE Renal: NONE Musculoskeletal: osteomyelitis R GREAT TOE and left great toe Psychiatric: NONE Endocrine: diabetes Blood Disorders: NONE Cancer(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 Psychosocial History Where Do You Live? Home Services at Home: None Smoking Status: Current Everyday Smoker Exam & Diagnostic Data Last 24 Hrs of Vital Signs/I&O Vital Signs Date Time Temp Pulse Resp B/P B/P Pulse O2 O2 Flow FiO2 Mean Ox Delivery Rate 10/04 0742 90 144/86 10/04 0604 97.6 90 20 144/86 94 10/03 2224 97.9 85 20 120/78 94 Room Air 10/03 1602 97.1 82 18 124/62 98 Room Air Room Air Intake & Output 10/04 1600 10/04 0800 10/04 0000 Intake Total 200 800 Output Total Balance 200 800 Intake, IV 200 Intake, Oral 800 Number 1 Bowel Movements Physical Exam General Appearance: well developed/nourished, no apparent distress, alert, awake Respiratory: lungs clear Cardiovascular: regular rate/rhythm Peripheral Pulses: 2+ popliteal (R), 2+ popliteal (L), 2+ dorsalis pedis (R), 2+ dorsalis pedis (L) Gastrointestinal: normal bowel sounds, soft, non-tender Extremities: no edema, Bandaged Left foot CDI, s/p amputation of 1st and 2nd toes S/p amputation of right 1st and 2nd toes dry non-healing ulcer on base of Rt foot, not draining Last 24 Hrs of Labs/Dany: none Assessment/Plan Assessment/Plan Assessment 1. Osteomyelitis status post amputation of the second toe on the left foot# post op day 1 2. Type 2 diabetes mellitus 3. Hypertension Plan -Continue Unasyn 3 g every 6 hours; according to podiatry a clean margin was achieved during surgery and patient may not need long-term antibiotics -Follow-up surgical cultures -Blood glucose is stable. Continue metformin 1000mg BID and subcutaneous insulin at current doses for now; will titrated as needed -Hold glyburide for now -Adequate pain control as needed-tylenol ordered -BP stable. Continue home dose of antihypertensive lisinopril 10mg daily -Continue atorvastatin 10mg daily -Fingerstick glucose 3 times daily before meals and at bedtime -Diabetic diet -Surgical and wound management by podiatry -Pt refuses PT. Says he is able to ambulate without help -DVT prophylaxis with subcutaneous heparin Q8hrs -Follow attending recommendations -Thank you for the consult. Will follow along with you. Problem List: 1. Osteomyelitis 2. T2DM (type 2 diabetes mellitus) 3. HTN (hypertension) Copies To: Marino Fernandez DPM Consult Acknowledgment - Thank you for your consult request. Yanna Fragoso 10/04/17 1326: Assessment/Plan Consult Acknowledgment - Thank you for your consult request. Attending MD Review Statement Attending Statement Attending MD Statement: examined this patient, discuss w/resident/PA/ART GALLERY DIRECTOR, agreed w/resident/PA/ART GALLERY DIRECTOR, discussed with family, reviewed EMR data (avail), discussed with nursing, discussed with case mgmt, reviewed images, amended to note Attending Assessment/Plan: Patient with controlled blood sugars in david-operative period. Patient is tolerating PO. Patient offers no new complaints. His pain is well controlled. Started empirically on iv unasyn , follow cultures. Cont current care..
[2017-10-04 15:32] VITALS: BP 120/80
--- NOTE | 2017-10-04 16:42 | PN- Podiatry ---
Subjective Subjective: Patient seen at bedside with no new complaints. Patient denies nausea, vomiting , fever or chills. Afebrile overnight. Patient denies foot pain. Objective Vital Signs and I&Os Vital Signs Date Time Temp Pulse Resp B/P B/P Pulse O2 O2 Flow FiO2 Mean Ox Delivery Rate 10/04 1532 97.7 86 20 120/80 97 10/04 0742 90 144/86 10/04 0604 97.6 90 20 144/86 94 10/03 2224 97.9 85 20 120/78 94 Room Air Intake & Output 10/04 1600 10/04 0810/04 0000 10/03 1600 10/03 0810/03 0000 Intake Total 1500 200 800 Output Total Balance 1500 200 800 Intake, IV 200 Intake, Oral 1500 800 Number 1 Bowel Movements Patient 225 lb Weight Weight Reported by Patient Measurement Method Physical Exam: Dressing to left foot clean, dry and intact. Some minimal dry strikethrough identified at the distal margins. Bone cultures pending. Assessment/Plan Assessment/Plan Left foot osteomyelitis. Continue IV Unasyn. Follow-up cultures. Patient to the OR Friday for revision and closure. Appreciate medicine input regarding glucose control and hypertension. Core Measures Venous Thromboembolism VTE Risk Factors Surgery No Mechanical VTE Prophylaxis d/t LowRisk-No Interven Req'd No VTE Pharm Prophylaxis d/t LowRisk-No Interven Req'd Attending MD Review Statement Attending Statement Attending MD Statement: examined this patient
[2017-10-04 22:24] VITALS: BP 128/60
[2017-10-05 06:53] VITALS: BP 122/80
[2017-10-05 08:09] LABS: ABSOLUTE BASOPHIL COUNT 0.1 /CUMM (0.0-0.2); ABSOLUTE EOSINOPHIL COUNT 0.7 /CUMM (0.0-0.7); ABSOLUTE GRANULOCYTE CT 8.3 /CUMM (1.4-6.5); ABSOLUTE LYMPH COUNT 2.4 /CUMM (1.2-3.4); ABSOLUTE MONOCYTE COUNT 0.9 /CUMM (0.10-0.60); BASOPHIL % 0.6 % (0.0-2.0); EOSINOPHIL % 5.6 % (0-5); GRANULOCYTE % 66.9 % (42.2-75.2); HEMATOCRIT 41.4 % (42-52); MEAN CORPUSCULAR HGB 29.9 PG (27.0-31.0); MEAN CORPUSCULAR HGB CONC 33.1 G/DL (33.0-37.0); MEAN CORPUSCULAR VOLUME 90.2 FL (80.0-94.0); MEAN PLATELET VOLUME 6.9 FL (7.4-10.4); PLATELET COUNT 367 /CUMM (130-400); RBC DISTRIBUTION WIDTH 14.5 % (11.5-14.5); RED BLOOD CELL CT 4.59 /CUMM (4.70-6.10); WHITE BLOOD CELL COUNT 12.4 /CUMM (4.8-10.8)
--- NOTE | 2017-10-05 12:08 | PN- Medicine Consult ---
Tomas BOBO,Zeeshan 10/05/17 1208: Assessment/PlanMedical Consult Assessment/Plan Assessment: Assessment 1. Osteomyelitis status post amputation of the second toe on the left foot# post op day 2 2. Type 2 diabetes mellitus 3. Hypertension Plan: Plan -Continue Unasyn 3 g every 6 hours; according to podiatry a clean margin was achieved during surgery and patient may not need long-term antibiotics -Follow-up surgical cultures -Blood glucose is stable. Continue metformin 1000mg BID and subcutaneous insulin at current doses for now; will titrated as needed -Hold glyburide for now -Adequate pain control as needed-tylenol ordered -BP stable. Continue home dose of antihypertensive lisinopril 10mg daily -Continue atorvastatin 10mg daily -Fingerstick glucose 3 times daily before meals and at bedtime -Diabetic diet -Surgical and wound management by podiatry -Pt refuses PT. Says he is able to ambulate without help -DVT prophylaxis with subcutaneous heparin Q8hrs -Follow attending recommendations Problem List: 1. Osteomyelitis of foot Subjective Subjective: Seen and examined while laying comfortably in bed with using his phone. He endorses no complaints such as fever/chills, nausea/vomiting, or increase pain. Review of Systems Constitutional: Reports: see HPI. Objective Last 24 Hrs of Vital Signs/I&O Vital Signs Date Time Temp Pulse Resp B/P B/P Pulse O2 O2 Flow FiO2 Mean Ox Delivery Rate 10/05 1435 98.2 80 20 124/78 97 Room Air 10/05 0736 87 122/80 10/05 0653 98.3 87 20 122/80 96 10/04 2224 98.0 60 18 128/60 98 Room Air Intake & Output 10/05 1600 10/05 0800 10/05 0000 Intake Total 1110 200 400 Output Total Balance 1110 200 400 Intake, IV 110 200 Intake, Oral 1000 400 Physical Exam General Appearance: alert, awake, comfortable Other Physical Findings: Respiratory: lungs clear Cardiovascular: regular rate/rhythm Peripheral Pulses: 2+ popliteal (R), 2+ popliteal (L), 2+ dorsalis pedis (R), 2+ dorsalis pedis (L) Gastrointestinal: normal bowel sounds, soft, non-tender Extremities: no edema, Bandaged Left foot CDI, s/p amputation of 1st and 2nd toes S/p amputation of right 1st and 2nd toes dry non-healing ulcer on base of Rt foot, not draining Current Medications: Current Medications Sig/Kory Start time Last Medication Dose Route Stop Time Status Admin Acetaminophen 650 MG Q4P PRN 10/04 1230 AC PO Ampicillin Sodium/ 3,000 MG Q6 10/03 1800 AC 10/05 Sulbactam Sodium IV 1743 Sodium Chloride 100 ML Atorvastatin Calcium 10 MG 1700 10/03 1700 AC 10/05 PO 1649 Heparin Sodium 5,000 UNIT Q8 10/03 2200 AC 10/05 (Porcine) SC 1402 Insulin Aspart 0 TIDAC 10/03 1700 AC 10/05 SC 1650 Lisinopril 10 MG DAILY 10/04 1000 AC 10/05 PO 0736 Metformin HCl 1,000 MG 0800,1700 10/03 1700 AC 10/05 PO 1649 Results Last 24 Hrs Lab/Dany Results: Laboratory Tests 10/05/17 0725: Anion Gap 8, Estimated GFR > 60, BUN/Creatinine Ratio 24.4, CBC w Diff NO MAN DIFF REQ, RBC 4.59 L, MCV 90.2, MCH 29.9, MCHC 33.1, RDW 14.5, MPV 6.9 L, Gran % 66.9, Lymphocytes % 19.4 L, Monocytes % 7.5, Eosinophils % 5.6 H, Basophils % 0.6, Absolute Granulocytes 8.3 H, Absolute Lymphocytes 2.4, Absolute Monocytes 0.9 H, Absolute Eosinophils 0.7, Absolute Basophils 0.1 Yanna Fragoso 10/05/17 1240: Attending MD Review Statement Attending Sign Off Attending Cosign Statement: I have: examined this patient, reviewed [facility] EMR data, personally reviewd images, discussd w/resident/PA/STERILE SUPERVISOR, discussed mgmt plan w/lisa. Other Findings: Patient with controlled blood sugars in david-operative period. Patient is tolerating PO. Patient offers no new complaints. WBC is mild improving, His pain is well controlled. Started empirically on iv unasyn , follow cultures growing GPC. Cont current care..
[2017-10-05 14:35] VITALS: BP 124/78
[2017-10-05 22:04] VITALS: BP 132/84
[2017-10-06 06:03] VITALS: BP 146/90
--- NOTE | 2017-10-06 13:36 | PN- Att Addend ---
Attending Addendum Attending Brief Note Patient seen and examined, feels well. Denies any complaints. Denies any pain. Vital Signs Date Time Temp Pulse Resp B/P B/P Pulse O2 O2 Flow FiO2 Mean Ox Delivery Rate 10/06 0856 82 142/88 10/06 0603 97.9 79 20 146/90 95 10/05 2204 98.3 92 20 132/84 96 Room Air 10/05 1435 98.2 80 20 124/78 97 Room Air on exam: aox3, nad. cv; s1, s2, rrr resp; clear abd: soft, nt, bs+ ext; no edema. no labs. Assessment and recommendations: 46 y/o M poorly controlled type 2 diabetes who presented 2 days ago with new onset of left second toe ulceration. S/P debridement. Will be taken to OR tomorrow for wound closure. Blood sugars and blood pressure well controlled. Abx per podiatary. Dvt px; Hep sq Thank you, will follow.
[2017-10-06 15:34] VITALS: BP 126/70
--- NOTE | 2017-10-06 18:40 | PN- Podiatry ---
Subjective Subjective: Patient seen at bedside with no new acute complaints. Patient denies nausea vomiting fever chills. Patient afebrile overnight. Objective Vital Signs and I&Os Vital Signs Date Time Temp Pulse Resp B/P B/P Pulse O2 O2 Flow FiO2 Mean Ox Delivery Rate 10/06 1534 97.6 88 20 126/70 98 Room Air 10/06 0856 82 142/88 10/06 0603 97.9 79 20 146/90 95 10/05 2204 98.3 92 20 132/84 96 Room Air Intake & Output 10/06 1600 10/06 0800 10/06 0000 10/05 1600 10/05 0800 10/05 0000 Intake Total 1000 476 305 3425 200 400 Output Total Balance 1000 405 513 9913 200 400 Intake, IV 200 140 110 200 Intake, Oral 0567 440 2964 400 Physical Exam: Dressing left foot clean dry and intact. No pain with deep palpation bilateral lower extremity's. Assessment/Plan Assessment/Plan Left foot osteomyelitis. Patient nothing by mouth past midnight tonight for or tomorrow. Patient scheduled for washout, revision and closure left foot. Core Measures Venous Thromboembolism VTE Risk Factors Surgery No Mechanical VTE Prophylaxis d/t LowRisk-No Interven Req'd No VTE Pharm Prophylaxis d/t LowRisk-No Interven Req'd Attending MD Review Statement Attending Statement Attending MD Statement: examined this patient
[2017-10-06 22:23] VITALS: BP 100/52
[2017-10-07 07:01] VITALS: BP 138/82
[2017-10-07 08:34] VITALS: BP 132/92
--- NOTE | 2017-10-07 08:44 | PN- Medicine Consult ---
Kenna Castillo 10/07/17 0844: Assessment/PlanMedical Consult Assessment/Plan Assessment: 46-year-old male with poorly controlled type 2 diabetes admitted for osteomyelitis s/p open incision and drainage deep to the D fashion with exposure of the extensor and flexor tendon and tendon sheath multiple sites left foot and amputation second digit left foot and intraoperative administration of ankle block anesthesia and excisional debridement on 10/03/2107 and he is scheduled for washout, revision and closure left foot. 10/06/2017. His OR bone Cx grew GRAM STAIN Final 10/04/17-1357 GRAM POSITIVE COCCI PRESENT IN CHAINS AND CLUSTERS > EXTREMITIES OR SPECIMEN Preliminary 10/06/17-1206 GROWTH IN THIO BROTH : 1. ALPHA STREP 2. STAPH AUREUS ISOLATED 3. BEING EVALUATED FOR ANAEROBES REPORTED TO AND READ BACK BY: LORRIE AT 1054 10/05/17 LAB.SVCY. 2. STAPH AUREUS RX ABN ------ --- 2. STAPH AUREUS RX AB ------ -- CEFAZOLIN S AMOXICILLIN/CLAVULINIC ACID S AMPICILLIN/SULBACTAM S TETRACYCLINE R TRIMETHOPRIM/SULFAMETHOXAZOLE S AZITHROMYCIN S CLINDAMYCIN S ERYTHROMYCIN S OXACILLIN S VANCOMYCIN S His finger stick blood sugers are between 103-180 ( once); mostly 110s mg/dl Remained afebrile; pulse and blood pressure are WNL On IV Unasyn, # day 5 Plan: Medical issues 1) osteomyelitis s/p successful amputation and on IV Unasyn; final OR Cx ( presented above). 2) Hx of DM on isulin and CHO diet. Blood sugars are control and controlled Blood pressure Plan * Continue the same insulin regimen; metformin was given up until tomorrow * NPO; wound revision and wash out today * Continue Abx Tx for 6-8 weeks * continue lisinopril * Heparin 5000 U SQ q8h Thanks for consulting us in this caring for Mr. Graham, will follow tomorrow. Problem List: 1. Osteomyelitis of left foot 2. Complicated wound infection 3. T2DM (type 2 diabetes mellitus) 4. HTN (hypertension) Subjective Subjective: Patient was visited and examined today. Had wound closure yesterday; feels well. No complains. VSS. No lab to review. Review of Systems Constitutional: Reports: see HPI. Objective Last 24 Hrs of Vital Signs/I&O Vital Signs Date Time Temp Pulse Resp B/P B/P Pulse O2 O2 Flow FiO2 Mean Ox Delivery Rate 10/07 0834 98.7 93 20 132/92 96 Room Air 10/07 0740 85 138/82 10/07 0701 98.0 85 16 138/82 94 Room Air 10/06 2223 97.9 63 20 100/52 93 10/06 1534 97.6 88 20 126/70 98 Room Air Intake & Output 10/07 1600 10/07 0800 10/07 0000 Intake Total 200 480 Output Total Balance 200 480 Intake, IV 200 Intake, Oral 480 Physical Exam General Appearance: no apparent distress, alert, awake Head: normal appearance Ears, Nose, Throat: normal pharynx Neck: normal inspection Cardiovascular: regular rate/rhythm Respiratory: normal breath sounds Peripheral Pulses: 2+ carotid (R), 2+ carotid (L) Extremities: no edema Current Medications: Current Medications Sig/Kory Start time Last Medication Dose Route Stop Time Status Admin Acetaminophen 650 MG Q4P PRN 10/04 1230 AC PO Ampicillin Sodium/ 3,000 MG Q6 10/03 1800 AC 10/07 Sulbactam Sodium IV 0554 Sodium Chloride 100 ML Atorvastatin Calcium 10 MG 1700 10/03 1700 AC 10/06 PO 1707 Dextrose/Sodium 1,000 ML Q13H 10/07 0800 AC 10/07 Chloride IV 0705 Heparin Sodium 5,000 UNIT Q8 10/03 2200 AC 10/07 (Porcine) SC 0554 Insulin Aspart 0 TIDAC 10/03 1700 DC 10/05 SC 1650 Insulin Human Regular 0 Q6 10/06 1841 AC 10/07 SC 0553 Lisinopril 10 MG DAILY 10/04 1000 AC 10/07 PO 0740 Metformin HCl 1,000 MG 0800,1700 10/03 1700 DC 10/06 PO 1707 Results Last 24 Hrs Lab/Dany Results: His OR bone Cx grew GRAM STAIN Final 10/04/17-1357 GRAM POSITIVE COCCI PRESENT IN CHAINS AND CLUSTERS > EXTREMITIES OR SPECIMEN Preliminary 10/06/17-1206 GROWTH IN THIO BROTH : 1. ALPHA STREP 2. STAPH AUREUS ISOLATED 3. BEING EVALUATED FOR ANAEROBES REPORTED TO AND READ BACK BY: LORRIE AT 1054 10/05/17 LAB.SVCY. 2. STAPH AUREUS RX ABN ------ --- 2. STAPH AUREUS RX AB ------ -- CEFAZOLIN S AMOXICILLIN/CLAVULINIC ACID S AMPICILLIN/SULBACTAM S TETRACYCLINE R TRIMETHOPRIM/SULFAMETHOXAZOLE S AZITHROMYCIN S CLINDAMYCIN S ERYTHROMYCIN S OXACILLIN S VANCOMYCIN S Eduardo BOBO,Beth 10/07/17 1138: Attending MD Review Statement Attending Sign Off Attending Cosign Statement: I have: examined this patient, reviewed [facility] EMR data, personally reviewd images, discussed mgmt plan w/pt, agreed w/resident/PA/DIRECTOR STERILE PROCESSING, amended to note. Other Findings: Patient seen and examined, came back from the second part of the debridement. Doing well and offers no complaints. His wound was closed. Blood pressure and blood sugars are stable. Will recommend continue prsent mx. Abx will be deferred to podiatry.
--- NOTE | 2017-10-07 10:17 | Operative Report ---
Operative/Inv Procedure Report Surgery Date: 10/07/17 Name of Procedure: 1 open incision and drainage deep to the D fashion with exposure of the extensor and flexor tendon and tendon sheath multiple sites left foot 2 delayed primary closure of open surgical wound left foot 3 revisional, partial second ray resection left foot 4 intraoperative administration of ankle block anesthesia 5 excisional debridement Pre-Operative Diagnosis: 1 open necrotic wound left foot 2 osteomyelitis left foot 3 diabetic peripheral neuropathy Post-Operative Diagnosis: The same Estimated Blood Loss: less than 50ml Surgeon/Admissions Rn: Jim CROSS,Marino Henderson DPM Anesthesia: moderate sedation, block Operative/Procedure Note Note: After obtaining informed consent the patient was brought to the operating room placed on the operating table in supine position. The patient isn't securely fastened to the operating tibial safety belt. After administration of IV sedation, 10 mL of 0.5% Marcaine plain was infiltrated about the patient's left ankle. The left foot and ankle then scrubbed prepped and draped in usual aseptic manner. Digitorectal left foot, where a lengthy large full-thickness chronic was identified. A 15 blade visualized sharply revised skin margins. Dissection was then carried down deep to the fashion with exposure of the extensor and flexor tendon tension multiple sites, both proximally and distally. All necrotic nonviable infected tissue sharply evacuated from the wound bed. Dissection was then carried down to the periosteum overlying the distal stump second ray. This was incised reflected. Sagittal bone saw was utilized second the distal 2 cm of exposed bone. The specimen was sent for pathologic inspection. Nipple was then irrigated with 3 L normal sterile saline fissure 50 ,000 units of bacitracin. Following this, the foot was redraped and the surgeon 's top was changed clean gloves. Any bleeding vessels identified were cauterized or ligated as encountered. A dorsal flap was then developed with undermining, mobilization and advancement adjacent tissue centrally. Inferiorly , the moring ligaments released the adjacent tissues mobilized and advanced centrally and held in place with 3-0 Vicryl. Subtenons tissues reapproximated 3 -0 Vicryl skin edges reapproximated 3-0 nylon. Incision was dressed with Xeroform 4 x 4's Kerlix and Roe wrap. The patient noted tolerate both procedure and anesthesia well and the patient was transported from the operative recovery by sent stable best assess intact to both the dorsal plantar flaps.
[2017-10-07 11:06] VITALS: BP 119/78
[2017-10-07 15:27] VITALS: BP 118/72
[2017-10-07 21:13] VITALS: BP 112/66
[2017-10-08 05:50] VITALS: BP 119/71
[2017-10-08 08:51] VITALS: BP 119/71
--- NOTE | 2017-10-08 11:20 | PN- Att Addend ---
Attending Addendum Attending Brief Note Patient seen and examined, doing well. Received his second part of debridement yesterday. He will be discharged home today per podiatry. He will receive his last dose of antibiotic and then discharge home. His blood sugars have been running stable as well as his blood pressure. Would recommend continuing the patient on his home regimen for diabetes and hypertension upon discharge. Antibiotics will be deferred to podiatry.
== END 2017-10-08 12:33 | DRG 617 ==
LOC: SDA 02:47 → 2NB 02:47 → ENRESERV 14:48 → 2NB 15:31 → ENTRNSPT 10-07 10:45 → EDTRNSPTSTS 10-07 10:49 → EDTRNSPT 10-07 10:49 → CMPTRNSPT 10-07 11:06 → ENPENDDIS 10-08 08:56 → 2NB 10-08 12:33
PROVIDERS: Podiatrist Foot & Ankle Surgery; Student in an Organized Health Care Education/Training Program
PROC: 0Y6S0Z0 Detachment at Left 2nd Toe, Complete, Open Approach (ICD-10-PCS; principal; 2017-10-03)
PROC: 0QBP0ZX Excision of Left Metatarsal, Open Approach, Diagnostic (ICD-10-PCS; 2017-10-07)
PROC: 0JXR0ZC Transfer Left Foot Subcutaneous Tissue and Fascia with Skin, Subcutaneous Tissue and Fascia, Open Approach (ICD-10-PCS; 2017-10-07)
DX: E11.69 Type 2 diabetes mellitus with other specified complication (principal); M86.172 Other acute osteomyelitis, left ankle and foot; L97.529 Non-pressure chronic ulcer of other part of left foot with unspecified severity; E11.65 Type 2 diabetes mellitus with hyperglycemia; E11.621 Type 2 diabetes mellitus with foot ulcer; E78.5 Hyperlipidemia, unspecified; I10 Essential (primary) hypertension; Z91.030 Bee allergy status; E11.42 Type 2 diabetes mellitus with diabetic polyneuropathy; F17.200 Nicotine dependence, unspecified, uncomplicated; Z90.49 Acquired absence of other specified parts of digestive tract; Z89.412 Acquired absence of left great toe; Z89.411 Acquired absence of right great toe; Z79.84 Long term (current) use of oral hypoglycemic drugs
CPT/HCPCS: 2NBP; 87070; 87075; 87184; 36415; 36592; 82436; 87071; 87147; J0690; J1644; J1885; J2001; J7042

== ENCOUNTER 2017-12-18 18:19 | Inpatient (IN) | payer OTHER ==
[~2017-12-18] VITALS: Ht 193 cm; Wt 106.3 kg
--- NOTE | 2017-12-18 19:14 | RADIOLOGY REPORT ---
EXAMINATION: XR FOOT, RIGHT CLINICAL INFORMATION: Right foot wounds. Discharge. History of osteomyelitis. COMPARISON: Right foot radiograph 07/23/2017. TECHNIQUE: AP, lateral, and oblique views of the right foot. FINDINGS: There are postoperative findings related to resection of the first metatarsal and digit as well as amputation through the mid shaft of the second metatarsal. There is new heterotopic ossification along the second metatarsal shaft stump with some areas of marginal irregularity compared to the immediate postoperative study of 07/23/2017. There is new erosive change involving the head of the third metatarsal. The third digit is volarly subluxed. There are chronic fractures of the distal third and fourth metatarsals. There is diffuse swelling of the forefoot including about the second metatarsal stump. No discrete collection of air is seen. The hindfoot is within normal limits allowing for mild spurring. IMPRESSION: - New heterotopic ossification and marginal irregularity about the second metatarsal shaft stump which may reflect osteomyelitis - New erosive change involving the third metatarsal head with the third digit volarly subluxed. Osteomyelitis is favored. - Redemonstration of fractures involving the third and fourth distal metatarsals. - Diffuse soft tissue swelling about the forefoot stump.
[2017-12-18 19:39] LABS: ABSOLUTE BASOPHIL COUNT 0.1 /CUMM (0.0-0.2); ABSOLUTE EOSINOPHIL COUNT 0.7 /CUMM (0.0-0.7); ABSOLUTE GRANULOCYTE CT 12.8 /CUMM (1.4-6.5); ABSOLUTE LYMPH COUNT 2.6 /CUMM (1.2-3.4); ABSOLUTE MONOCYTE COUNT 1.7 /CUMM (0.10-0.60); BASOPHIL % 0.4 % (0.0-2.0); GRANULOCYTE % 71.7 % (42.2-75.2); HEMATOCRIT 40.5 % (42-52); MEAN CORPUSCULAR HGB 29.8 PG (27.0-31.0); MEAN CORPUSCULAR HGB CONC 33.4 G/DL (33.0-37.0); MEAN CORPUSCULAR VOLUME 89.2 FL (80.0-94.0); MEAN PLATELET VOLUME 6.4 FL (7.4-10.4); PLATELET COUNT 483 /CUMM (130-400); RBC DISTRIBUTION WIDTH 14.6 % (11.5-14.5); RED BLOOD CELL CT 4.54 /CUMM (4.70-6.10); WHITE BLOOD CELL COUNT 17.9 /CUMM (4.8-10.8)
--- NOTE | 2017-12-18 19:53 | ED ANKLE/FOOT INJURY COMPLAINT ---
History of Present Illness General Chief Complaint: Lower Extremity Problems Stated Complaint: SIB DR MCCLENDON FOR ADMISSION Source: patient, old records Exam Limitations: no limitations Vital Signs & Intake/Output Vital Signs & Intake/Output Vital Signs Date Time Temp Pulse Resp B/P B/P Pulse O2 O2 Flow FiO2 Mean Ox Delivery Rate 12/18 2022 Room Air 12/18 1837 98.7 113 16 147/90 95 Room Air Allergies Coded Allergies: venom-honey bee (UNSURE IF ALLERGIC TO BEE STINGS PER PT 10/02/17) Reconcile Medications Atorvastatin Calcium 10 MG TABLET 1 TAB PO QPM CHOLESTEROL (Reported) Glyburide 5 MG TABLET 1 TAB PO BID DIABETES (Reported) Lisinopril 10 MG TABLET 1 TAB PO DAILY BP (Reported) Metformin HCl 1,000 MG TABLET 1 TAB PO BID DIABETES (Reported) Triage Note: PT SENT TO ED BY MD FERNANDEZ FOR ADMISSION/ SURGICAL INTERVENTION TOMORROW FOR CHRONIC NON HEALING OPEN WOUND TO RIGHT FOOT. Triage Nurses Notes Reviewed? yes Occurred: last week Duration: week(s): (1), constant Timing: recent history Severity: moderate Severity Numbers: 7 Pain/Injury Location: Right: Foot. No Modifying Factors: none Associated Symptoms: none HPI: 47 Year old male with history of hypertension, diabetes mellitus not on insulin, current smoking, history of bilateral toe amputations for osteomyelitis presents to the ER for evaluation sent in by Dr. Fernandez his store stock associate she's been following him for a nonhealing wound to the right foot. Patient states that it has been draining. He denies any fever chills diaphoresis. No abdominal pain nausea vomiting chest pain. No recent foot surgery he is not on insulin he states that his sugars have been well-controlled at home. (David García) Past History Travel History Traveled to [place] past 21 day No Medical History Any Pertinent Medical History? 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 Hx Contributory? No (David García) Review of Systems Review of Systems Constitutional: Reports: see HPI. Comments Review of systems: See HPI, All other systems negative. Constitutional, no chills no fever, HEENT: no sore throat no congestion Cardiovascular: No chest pain Skin: no rashes, no change in skin Respiratory: No dyspnea no cough no sputum GI: No nausea no vomiting, no diarrhea Muscle skeletal: No joint pain, no back pain, no neck pain, Neurologic: , no headache Heme/endocrine: No bruising Immunology: No lymphadenopathy (David García) Physical Exam Physical Exam General Appearance: well developed/nourished, alert, awake Leg/Knee/Thigh Left: normal range of motion Comments: Well-developed well-nourished patient in no apparent distress. HEENT: Atraumatic, extraocular motion intact Neck: Supple, FROM Back: FROM Cardiovascular: Regular rate and rhythms no murmurs rubs or gallops, Respiratory: Chest nontender.There were no bony deformities, no asymmetry. No respiratory distress. Patient speaking in full complete sentences. Breath sounds clear to auscultation bilaterally: NO W/R/R Extremities: The right foot is heavily bandaged and and a protective boot at this time full range of motion Neuro: awake, alert, and oriented to person, place and time. There were no obvious focal neurologic abnormalities. Skin: Warm & dry;No appreciable rash on exposed skin Psych: Mood affect normal, normal memory normal judgment. (David García) Progress Differential Diagnosis: cellulitis, fracture, dislocation, sprain, contusion, OSTEOMYELITIS, DEHYDRATION, DKA, HHS, UNCONTROLLED DIABETES Plan of Care: Orders Procedure Date/time Status Consistent Carbohydrate 1 12/19 B Active Patient Data 12/19 2151 Active Misc Message 12/19 2139 Active ED Holding Orders 12/19 2139 Active Admit to inpatient 12/19 2139 Active Vital Signs 12/19 2139 Active Code Status 12/19 2139 Active BLOOD CULTURE 12/19 1839 Active WESTERGREN SED RATE 12/19 1839 Complete C-REACTIVE PROTEIN 12/19 1839 Complete COMPREHENSIVE METABOLIC PANEL 12/19 1839 Complete CBC WITHOUT DIFFERENTIAL 12/19 1839 Complete EKG 12/19 1839 Active Laboratory Tests 12/18/171927: Anion Gap 15, Estimated GFR > 60, BUN/Creatinine Ratio 15.0, Glucose 100 H, Calcium 9.6, Total Bilirubin 0.4, AST 15 L, ALT 23, Alkaline Phosphatase 92, C- Reactive Prot, Quant > 9.0 H, Total Protein 6.7, Albumin 3.8, Globulin 2.9, Albumin/Globulin Ratio 1.3, CBC w Diff NO MAN DIFF REQ, RBC 4.54 L, MCV 89.2, MCH 29.8, MCHC 33.4, RDW 14.6 H, MPV 6.4 L, Gran % 71.7, Lymphocytes % 14.4 L , Monocytes % 9.5 H, Eosinophils % 4.0, Basophils % 0.4, Absolute Granulocytes 12.8 H, Absolute Lymphocytes 2.6, Absolute Monocytes 1.7 H, Absolute Eosinophils 0.7, Absolute Basophils 0.1, ESR Westergren 54 H Microbiology 12/18 2030 BLOOD: Blood Culture - RECD 12/19 1927 BLOOD: Blood Culture - RECD Labs x-rays were ordered from triage discussed with the patient plan of care, case discussed with Dr. King agrees with plan and device will be held at this time secondary cultures in the OR tomorrow Dr. Fernandez blood cultures were sent discussed with the patient at length all his labs and x-ray findings need for admission which he is in agreement with Diagnostic Imaging: Viewed by Me: Radiology Read. Discussed w/RAD: Radiology Read. Radiology Impression: PATIENT: MARILEE WOODWARD PRESENT AGE: 47 PATIENT ACCOUNT NO: [id number] : 71 LOCATION: [facility] ORDERING PHYSICIAN: Alonzo RIBEIRO SERVICE DATE: 12/18/17 EXAM TYPE : RAD - XRY-FOOT COMPLETE, R EXAMINATION: XR FOOT, RIGHT CLINICAL INFORMATION: Right foot wounds. Discharge. History of osteomyelitis. COMPARISON: Right foot radiograph 07/23/2017. TECHNIQUE: AP, lateral, and oblique views of the right foot. FINDINGS: There are postoperative findings related to resection of the first metatarsal and digit as well as amputation through the mid shaft of the second metatarsal. There is new heterotopic ossification along the second metatarsal shaft stump with some areas of marginal irregularity compared to the immediate postoperative study of 07/23/2017. There is new erosive change involving the head of the third metatarsal. The third digit is volarly subluxed. There are chronic fractures of the distal third and fourth metatarsals. There is diffuse swelling of the forefoot including about the second metatarsal stump. No discrete collection of air is seen. The hindfoot is within normal limits allowing for mild spurring. IMPRESSION: - New heterotopic ossification and marginal irregularity about the second metatarsal shaft stump which may reflect osteomyelitis - New erosive change involving the third metatarsal head with the third digit volarly subluxed. Osteomyelitis is favored. - Redemonstration of fractures involving the third and fourth distal metatarsals. - Diffuse soft tissue swelling about the forefoot stump. DICTATED BY: Jf Howard MD DATE/ TIME DICTATED:12/18/171899 TYPEWRITER ASSEMBLER:ASMITA DATE/TIME TRANSCRIBED: 12/18/171899 CONFIDENTIAL, DO NOT COPY WITHOUT APPROPRIATE AUTHORIZATION. < Electronically signed in Other Vendor System> SIGNED BY: Jf Howard MD 12/18/171913 Initial ED EKG: STACH AT 100, NO ACUTE ST SEG CHANGES, NORMAL AXIS (David García) Departure Departure Time of Disposition: 2126 Disposition: STILL A PATIENT Condition: Stable Clinical Impression Primary Impression: Osteomyelitis Referrals: Johanna Ireland (PCP/Family) Departure Forms: Customer Survey General Discharge Information Admission Note [facility] Documentation of Exam: Documentation of any treatments & extenuating circumstances including Concerns Regarding Discharge (functional status, medication knowledge or non-compliance, living conditions, etc.) that warrant an admission rather than observation: Podiatry consult trend labs trend culture is IV antibiotics endocrine consult premature discharge the medically harmful (David García) PA/DOT NET DEVELOPER Co-Sign Statement Statement: ED Attending supervision documentation- [X] I saw and evaluated the patient. I have also reviewed all the pertinent lab results and diagnostic results. I agree with the findings and the plan of care as documented in the PA's/DOT NET DEVELOPER's documentation. Patient presents for evaluation of possible osteomyelitis. Patient states that he has had a waxing and waning but chronic ulceration of the ball of the right foot. Physical examination reveals a comfortable and conversant gentleman with a sizable dressing of the right foot. I've deferred inspection of the foot to Dr. Fernandez. [] I have reviewed the ED Record and agree with the PA's/DOT NET DEVELOPER's documentation. [] Additions or exceptions (if any) to the PAs/DOT NET DEVELOPER's note and plan are summarized below: [] (Christine BOBO,Micah Ambriz)
--- NOTE | 2017-12-18 21:40 | History & Physical ---
Ana M Joyce 12/18/172138: General Information and HPI MD Statement: I have seen and personally examined MARILEE WOODWARD and documented this H&P. The patient is a 47 year old M who presented with a patient stated chief complaint of [Osteomyelitis]. Source of Information: patient, old records Exam Limitations: no limitations History of Present Illness: Ms. Hernández is a 47yo M w/ PMH of hypertension/hyperlipidemia, hx of osteomyelitis s/p multiple toe amputations including left 2nd ray (09/2017), right second ray (06/2017), and the bilateral great toe amputations about 5-6 years ago, diabetes, s/p appendectomy remotely, sent to ER by Dr. Howell for potential OR amputation of the right metatarsal due to worsening wound healing after patient was seen at the wound center by Dr. Fernandez from his last OR event back in 09/2017. Patient had been visiting the wound center on a weekly basis, however denies any hyperbaric/wound VAC treatment, with only ongoing dressing change. Patient was supposed to go to the OR on next Friday for elective surgery of the right foot wound, however this is no admitting wound center that the patient may need immediate intervention. Patient denies any fever/chills/chest pain/wound discharge however since last discharge from hospital. Patient at baseline could ambulate with the cast on right foot without cane/assistance. Patient also endorsed noticing of right ankle swelling after taking out of the cast for the last 2 days, however denied any pain or spreading redness on the right lower extremity. Patient also complaining of mild swelling around the nail of the right middle finger, however denies any trauma to the finger recently. 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 During our clinical interaction, patient denied fever/lightheadedness/ diaphoresis/night sweat/weight change/cough/SOB/Chest Pain/Palpitation/Abdominal pain/bowel movement or urinary abnormality, or other skin/musculoskeletal/ neurological/mood disorders, or dietary/appetite change. -Smoking: Active smoker of 1.5 PPD per week -Alcohol: Denies -Rec Drugs: Denies Allergies/Medications Allergies: Coded Allergies: venom-honey bee (UNSURE IF ALLERGIC TO BEE STINGS PER PT 10/02/17) Home Med list Atorvastatin Calcium 10 MG TABLET 1 TAB PO QPM CHOLESTEROL (Reported) Glyburide 5 MG TABLET 1 TAB PO BID DIABETES (Reported) Lisinopril 10 MG TABLET 1 TAB PO DAILY BP (Reported) Metformin HCl 1,000 MG TABLET 1 TAB PO BID DIABETES (Reported) Past History Travel History Traveled to [place] past 21 day No Medical History Neurological: NONE EENT: NONE Cardiovascular: hypertension, hyperlipidemia Respiratory: NONE Gastrointestinal: NONE Hepatic: NONE Renal: NONE Musculoskeletal: osteomyelitis R GREAT TOE and left great toe Psychiatric: NONE Endocrine: diabetes Blood Disorders: NONE Cancer(s): NONE 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 Psychosocial History Services at Home: None Smoking Status: Current Some Day Smoker ETOH Use: denies use Illicit Drug Use: denies illicit drug use Functional Ability ADLs Independent: dressing, eating, toileting, bathing. Ambulation: independent IADLs Independent: shopping, housework, finances, food prep, telephone, transportation , medication admin. Review of Systems Review of Systems Constitutional: Reports: see HPI. Exam & Diagnostic Data Last 24 Hrs of Vital Signs/I&O Vital Signs Date Time Temp Pulse Resp B/P B/P Pulse O2 O2 Flow FiO2 Mean Ox Delivery Rate 12/189 97.2 95 18 127/74 95 12/18 2022 Room Air 12/18 1838 98.7 113 16 147/90 95 Room Air Physical Exam General Appearance Alert, Oriented X3, Cooperative, No Acute Distress Skin No Rashes, No Breakdown, No Significant Lesion Skin Temp/Moisture Exam: Warm/Dry Sepsis Skin Exam (color): Normal for Ethnicity HEENT Atraumatic, PERRLA Neck Supple, No JVD Lymphatic Axillary nl, Cervical nl Cardiovascular Regular Rate Lungs Clear to Auscultation, Normal Air Movement Abdomen Normal Bowel Sounds, Soft, No Tenderness, No Hepatospenomegaly Neurological Normal Speech, Strength at 5/5 X4 Ext, Sensation Intact Extremities patient refused to open up the surgical dressing of R foot wound Left foot s/p great toe/2nd toe amputation w/ diminised pulse BL popliteal pulse normal Last 24 Hrs of Labs/Dany: Laboratory Tests 12/18/171927: Anion Gap 15, Estimated GFR > 60, BUN/Creatinine Ratio 15.0, Glucose 100 H, Calcium 9.6, Total Bilirubin 0.4, AST 15 L, ALT 23, Alkaline Phosphatase 92, C- Reactive Prot, Quant > 9.0 H, Total Protein 6.7, Albumin 3.8, Globulin 2.9, Albumin/Globulin Ratio 1.3, CBC w Diff NO MAN DIFF REQ, RBC 4.54 L, MCV 89.2, MCH 29.8, MCHC 33.4, RDW 14.6 H, MPV 6.4 L, Gran % 71.7, Lymphocytes % 14.4 L , Monocytes % 9.5 H, Eosinophils % 4.0, Basophils % 0.4, Absolute Granulocytes 12.8 H, Absolute Lymphocytes 2.6, Absolute Monocytes 1.7 H, Absolute Eosinophils 0.7, Absolute Basophils 0.1, ESR Westergren 54 H Microbiology 12/18 2030 BLOOD: Blood Culture - RECD 12/19 1927 BLOOD: Blood Culture - RECD Assessment/Plan Assessment: On admission, Vitals: afebrile, tachycardia 113, RR 16, BP 147/90, 95% under RA -CBC: Leukocytosis 17.9, HH 13.6/40.5 -BMP: Unremarkable -Misc: C-reactive protein positive above 90 -Foot x-ray:- New heterotopic ossification and marginal irregularity about the second metatarsal shaft stump which may reflect osteomyelitis - New erosive change involving the third metatarsal head with the third digit volarly subluxed. Osteomyelitis is favored. - Redemonstration of fractures involving the third and fourth distal metatarsals. - Diffuse soft tissue swelling about the forefoot stump. -Interventions in ER: Percocet tablet 1 Problem list & Assessment: #Osteomyelitis of the right foot #PMH of hypertension/hyperlipidemia, hx of osteomyelitis S/P amputations, diabetes Hospital Course: - Admit to general medicine, vitals per protocol previous cardiac history that is alarming and remained a low risk candidate for OR. DVT prophylaxis Heparin + ALPS NPO Full Code As Ranked By This Provider Problem List: 1. T2DM (type 2 diabetes mellitus) 2. Osteomyelitis of foot Core Measures/Misc (04/13) Acute Coronary Syndrome ACS Diagnosis: No Congestive Heart Failure Congestive Heart Failure Diagnosis No Cerebrovascular Accident CVA/TIA Diagnosis: No VTE (View Protocol) VTE Risk Factors Age>40 No Mechanical VTE Prophylaxis d/t N/A MechProphylax Ordered No VTE Pharm Prophylaxis d/t NA PharmProphylax ordered Sepsis (View protocol) Sepsis Present: No If YES complete Sepsis Event Note If YES complete Sepsis Event Note Antwan Newberry 12/18/17 2314: Core Measures/Misc (04/13) Sepsis (View protocol) If YES complete Sepsis Event Note If YES complete Sepsis Event Note Resident Review Statement Resident Statement: examined this patient, discussed with policy intern, agreed with policy intern, reviewed EMR data (avail), amended to note Other Findings: Mr Garcia is a 47 year old man HTN, type 2 DM, b/l great toe amputations for OM was sent by his director hospice operations for evaluation of nonhealing wound on right foot. He was admitted to the [facility] for infection of right foot ( 2016 ) , s/p amputation of right second toe and treated w/ abx for osteomyelitis, left foot osteomyelitis (10/12-11/12) and amuptation of second digit left foot which healed well. He has been following up with Dr. Fernandez for the non-healing wound on right foot, and was noted to have worseing symptoms in the last 24 hrs. Right foot was in a cast, which was changed every week by Dr Fernandez. No fever , chills, nausea or vomiting. At the time of admission-temperature 98.7, pulse rate 113, respirations 16, blood pressure 147/90, pulse ox 95% room air. General Exam: AAOx3, No acute distress, Skin: No rashes, no breakdown;HEENT: PERRLA, EOMI;Neck: Supple, No JVD; No cervical lymphadenopathy;CVS: Reg Rate, Normal S1,S2, No MGR;Resp: Normal air entry, no ronchi/rales;Abdomen: Soft, No tenderness, Normal Bowel Sounds;Neuro: Normal Speech, Strength 5/5 b/l x 4 extremities, Sensation intact, CN III-XII NL, Reflexes 2+;Extremities: No cyanosis, 1+ pedal edema RLE, R foot in dressing and pt refused to get examination done. No erythema or rash around RLE. Pertinent lab findings-WBC 17.4, hemoglobin 13.6, platelets 483. ESR 54. Sodium 143, potassium 4.4, carbonates 24, anion gap 15. Renal function-BUN 18, creatinine 1.2. Liver chemistries-AST 15, ALT 20, alkaline phosphatase is 92. C-reactive protein greater than 9. Foot x-ray Right- 12/18/2017- - New heterotopic ossification and marginal irregularity about the second metatarsal shaft stump which may reflect osteomyelitis - New erosive change involving the third metatarsal head with the third digit volarly subluxed. Osteomyelitis is favored. - Redemonstration of fractures involving the third and fourth distal metatarsals. - Diffuse soft tissue swelling about the forefoot stump. Etiology in his case is likely osteomyelitis. Reviewing the microbiology, he had growth of sensitive staph, in the past. At this time, vitals are stable, and does not have any signs of infection. Starting of antibiotics could be deferred after the bone biopsy is done in the a.m. Other differentials, diabetic foot ulcer. Problem list: #1 right foot osteomyelitis #2 type 2 diabetes #3 hypertension Plan: To be admitted to general medicine service for the management of osteo-myelitis. #1 monitor vitals every shift. #2 no antibiotics at this time. #3 as per the patient, arrangements have been made by Dr. Fernandez for bone biopsy/debridement/TMA. Await OR cultures. Previous e/o Providencia and MSSA ( 07/13 ). #4 nothing by mouth after midnight #5 insulin sliding scale, Novolin. #6 gentle hydration to be started at midnight. #7 if the patient develops any changes in hemodynamics, would consider antibiotics. Monitor closely. #8 continue lisinopril. #9 Follow up blood cultures. Housekeeping check list: #1 DVT prophylaxis-subcutaneous lovenox after the procedure. ALPS for now pending OR. #2 GI prophylaxis-Protonix if needed. #3 diet-nothing by mouth for now. Advance diet to CC2 after the OR. #4 medication reconciliation-completed. Naveed BOBO, [facility] 12/19/17 0024: Core Measures/Misc (04/13) Sepsis (View protocol) If YES complete Sepsis Event Note If YES complete Sepsis Event Note Attending MD Review Statement Attending Statement Attending MD Statement: examined this patient, discuss w/resident/PA/SENIOR SALES CONSULTANT, agreed w/resident/PA/SENIOR SALES CONSULTANT, reviewed images, amended to note Attending Assessment/Plan: 47 yo M smoker, with h/o T2DM, HTN, bilateral great toe amputations, right second toe osteomyelitis s/p second ray resection and prolonged antibiotics (Jun 2017), subsequent osteomyelitis of left second toe (September 2017) requiring debridement which has healed well, is sent in by Dr. Fernandez for right foot non healing ulcer. This wound has been an ongoing issue for months. Patient has been seeing Dr. Fernandez for dressing/ cast once a week. Today, at the office, patient's wound appeared worse so he was sent for admission. Patient refuses to have the dressing removed for us to evaluate the foot. He denies any purulent or foul smelling discharge. He denies fever/ chills. Patient states his sugars have been <230 when checked at home. He is compliant with his medications. His last A1c was 9.7 (Jun 2017). Vitals stable. Labs: WBC 17.9, Plt 483, ESR 54, CRP is high. Right foot Xray: new heterotopic ossification and marginal irregularity about the second metatarsal shaft stump which may reflect osteomyelitis, new erosive change involving third metatarsal head with third digit volarly subluxed osteomyelitis favored. Chronic fractures of distal third and fourth metatarsals. EKG: Sinus tachycardia, LAD, LVH, Qtc 434. Assessment and plan: 1. Osteomyelitis of right foot 2. Uncontrolled type 2 diabetes with possible diabetic ulcer 3. Essential hypertension 4. Smoker - Admit to General medicine - Panculture - NPO after midnight - Plan for OR with Dr. Fernandez in AM - Gentle hydration - Watch off antibiotics until bone culture - If febrile overnight, will initiate IV antibiotics broad spectrum - ID consult in AM - Check HbA1c - Accucheks, insulin NPO SS, hold OHA - Resume all home meds - Pain management with Percocet - Smoking cessation counseling, nicotine patch - Obtain lower extremity arterial doppler to assess for PVD DVT ppx Alps, initiate lovenox post procedure. Full code.
--- NOTE | 2017-12-18 22:42 | Admission Certification ---
Admission Certification Certification Statement - As attending physician, I certify that at the time of - admission, based on clinical presentation, severity of - symptoms, need for further diagnostic testing and - therapeutic interventions, and risk of adverse outcomes - without in-hospital treatment, in my clinical assessment, - this patient requires an acute hospital stay for a minimum - of two nights or longer. I have also considered psychsocial - factors such as support system, advanced age, financial - issues, cognitive issues, and failed out-patient treatments, - past re-admission history, safety of patient, and lack of - compliance as applicable. Specific rationale supporting this admission is: Right foot osteomyelitis
[2017-12-18 23:00] VITALS: BP 140/78
[2017-12-19 05:51] VITALS: BP 130/78
--- NOTE | 2017-12-19 07:13 | PN- Housestaff ---
Andres BOBO,Yesica 12/19/17 0713: Subjective Follow-up For: Right foot osteomyelitis Complaints: no complaints Subjective: Patient seen and examined at bedside. No overnight events. Denies any pain in his right foot. Patient is aware of the procedure [right metatarsal amputation/ IND with biopsy]. He denies fever, chills, chest pain. Review of Systems Constitutional: Reports: no symptoms, see HPI. Objective Last 24 Hrs of Vital Signs/I&O Vital Signs Date Time Temp Pulse Resp B/P B/P Pulse O2 O2 Flow FiO2 Mean Ox Delivery Rate 12/19 0551 97.7 81 20 130/78 96 Room Air 12/18 2300 98.3 99 18 140/78 97 Room Air 12/18 2229 97.2 95 18 127/74 95 12/18 2023 Room Air 12/18 1838 98.7 113 16 147/90 95 Room Air Intake & Output 12/19 1600 12/19 0800 12/19 0000 Intake Total 660 Output Total 300 Balance 360 Intake, IV 600 Intake, Oral 60 Number 0 Bowel Movements Output, Urine 300 Patient 234 lb Weight Weight Bed scale Measurement Method Physical Exam General Appearance: Alert, Oriented X3, Cooperative, No Acute Distress Cardiovascular: Normal S1, Normal S2, No Murmurs Lungs: Clear to Auscultation Abdomen: Normal Bowel Sounds, Soft, No Tenderness Neurological: Normal Speech, Strength at 5/5 X4 Ext, Normal Tone, Sensation Intact Extremities: right foot-dressing intact, left foot-week to an second toeshows evidence of amputation Current Medications: Current Medications Sig/Kory Start time Last Medication Dose Route Stop Time Status Admin Atorvastatin Calcium 10 MG QPM 12/19 2100 AC PO Dextrose/Sodium 1,000 ML Q13H 12/18 2354 AC 12/18 Chloride IV 12/19 1254 2357 Heparin Sodium 5,000 UNIT Q8 12/19 0600 CAN (Porcine) SC Insulin Human Regular 0 Q6 12/18 2359 AC SC Lisinopril 10 MG DAILY 12/19 0900 AC PO Oxycodone/ 1 TAB Q8P PRN 12/19 0600 AC 12/19 Acetaminophen PO 0612 Oxycodone/ 0 .STK-MED ONE 12/18 2116 DC Acetaminophen PO Oxycodone/ 1 TAB ONCE ONE 12/18 2114 DC 12/18 Acetaminophen PO 05/24 2116 2114 Sodium Chloride 1,000 ML .Q20H 12/18 2230 DC IV Last 24 Hrs of Lab/Dany Results Last 24 Hrs of Labs/Mics: Laboratory Tests 12/19/17 0617: Sodium Pending, Potassium Pending, Chloride Pending, Carbon Dioxide Pending, Anion Gap Pending, BUN Pending, Creatinine Pending, BUN/Creatinine Ratio Pending , CBC w Diff Pending, WBC Pending, RBC Pending, Hgb Pending, Hct Pending, MCV Pending, MCH Pending, MCHC Pending, RDW Pending, Plt Count Pending, MPV Pending 12/18/171927: Anion Gap 15, Estimated GFR > 60, BUN/Creatinine Ratio 15.0, Glucose 100 H, Hemoglobin A1c 7.9 H, Calcium 9.6, Total Bilirubin 0.4, AST 15 L, ALT 23, Alkaline Phosphatase 92, C-Reactive Prot, Quant > 9.0 H, Total Protein 6.7, Albumin 3.8, Globulin 2.9, Albumin/Globulin Ratio 1.3, CBC w Diff NO MAN DIFF REQ, RBC 4.54 L, MCV 89.2, MCH 29.8, MCHC 33.4, RDW 14.6 H, MPV 6.4 L, Gran % 71.7, Lymphocytes % 14.4 L, Monocytes % 9.5 H, Eosinophils % 4.0, Basophils % 0.4, Absolute Granulocytes 12.8 H, Absolute Lymphocytes 2.6, Absolute Monocytes 1.7 H, Absolute Eosinophils 0.7, Absolute Basophils 0.1, ESR Westergren 54 H Microbiology 12/18 2030 BLOOD: Blood Culture - RECD 12/19 1927 BLOOD: Blood Culture - RECD Assessment/Plan Assessment: Mr Garcia is a 47 year old man HTN, type 2 DM, b/l great toe amputations for OM was sent by his environmental compliance technician for evaluation of nonhealing wound on right foot. He was admitted to the [facility] for infection of right foot ( 2016 ) , s/p amputation of right second toe and treated w/ abx for osteomyelitis, left foot osteomyelitis (10/12-11/12) and amuptation of second digit left foot which healed well. He has been following up with Dr. Fernandez for the non-healing wound on right foot, and was noted to have worseing symptoms in the last 24 hrs. Assessment and plan #1 right foot osteomyelitis #2 type 2 diabetes #3 hypertension * X-ray finding of right foot osteomyelitis around the second metatarsal shaft stump. * Patient is going for transmetatarsal amputation later today. * Follow-up for cultures. * Patient was seen by infectious disease who suggested to start him on Unasyn 3 g IV every 6. * Patient is nothing by mouth for the same. * Sliding scale Novolin insulin. Problem List: 1. Osteomyelitis of foot Pain Ratin Pain Location: none Pain Goal: Remain pain free Pain Plan: tylenol Tomorrow's Labs & Rationales: cbc,bep Eduardo BOBO,Beth 12/19/17 1156: Attending MD Review Statement Attending Statement Attending MD Statement: examined this patient, discuss w/resident/PA/INK JET OPERATOR, agreed w/resident/PA/INK JET OPERATOR, reviewed EMR data (avail), discussed with nursing, discussed with case mgmt, reviewed images, amended to note Attending Assessment/Plan: Patient seen and examined, denies any complaints. His awaiting to go to operating room with Dr. Fernandez. Patient is admitted with right foot osteomyelitis. Vital Signs Date Time Temp Pulse Resp B/P B/P Pulse O2 O2 Flow FiO2 Mean Ox Delivery Rate 12/19 0845 81 130/78 12/19 0551 97.7 81 20 130/78 96 Room Air 12/18 2300 98.3 99 18 140/78 97 Room Air 12/18 2229 97.2 95 18 127/74 95 12/18 2023 Room Air 12/18 1838 98.7 113 16 147/90 95 Room Air on exam; aox3, nad. cv; s1,s2, rrr resp; clear abd; soft, nt, bs+ ext; no edema right foot wrapped in AGGIE wrap. Laboratory Tests 12/19 12/18 0617 1928 Chemistry Sodium (137 - 145 mmol/L) 139 143 Potassium (3.5 - 5.1 mmol/L) 4.3 4.4 Chloride (98 - 107 mmol/L) 103 105 Carbon Dioxide (22 - 30 mmol/L) 25 24 Anion Gap (5 - 16) 11 15 BUN (9 - 20 mg/dL) 19 18 Creatinine (0.7 - 1.2 mg/dL) 1.0 1.2 Estimated GFR (>60 ml/min) > 60 > 60 BUN/Creatinine Ratio (7 - 25 %) 19.0 15.0 Glucose (65 - 99 mg/dL) 100 H Hemoglobin A1c (4.2 - 5.8 %) 7.9 H Calcium (8.4 - 10.2 mg/dL) 9.6 Total Bilirubin (0.2 - 1.3 mg/dL) 0.4 AST (17 - 59 U/L) 15 L ALT (21 - 72 U/L) 23 Alkaline Phosphatase (< 127 U/L) 92 C-Reactive Prot, Quant (<1.0 mg/dL) > 9.0 H Total Protein (6.3 - 8.2 g/dL) 6.7 Albumin (3.5 - 5.0 g/dL) 3.8 Globulin (1.9 - 4.2 gm/dL) 2.9 Albumin/Globulin Ratio (1.1 - 2.2 %) 1.3 Hematology CBC w Diff NO MAN DIFF REQ NO MAN DIFF REQ WBC (4.8 - 10.8 /CUMM) 15.9 H 17.9 H RBC (4.70 - 6.10 /CUMM) 4.20 L 4.54 L Hgb (14.0 - 18.0 G/DL) 12.6 L 13.6 L Hct (42 - 52 %) 38.1 L 40.5 L MCV (80.0 - 94.0 FL) 90.8 89.2 MCH (27.0 - 31.0 PG) 30.0 29.8 MCHC (33.0 - 37.0 G/DL) 33.0 33.4 RDW (11.5 - 14.5 %) 14.6 H 14.6 H Plt Count (130 - 400 /CUMM) 445 H 483 H MPV (7.4 - 10.4 FL) 6.7 L 6.4 L Gran % (42.2 - 75.2 %) 66.9 71.7 Lymphocytes % (20.5 - 51.1 %) 18.2 L 14.4 L Monocytes % (1.7 - 9.3 %) 9.7 H 9.5 H Eosinophils % (0 - 5 %) 4.7 4.0 Basophils % (0.0 - 2.0 %) 0.5 0.4 Absolute Granulocytes (1.4 - 6.5 /CUMM) 10.7 H 12.8 H Absolute Lymphocytes (1.2 - 3.4 /CUMM) 2.9 2.6 Absolute Monocytes (0.10 - 0.60 /CUMM) 1.5 H 1.7 H Absolute Eosinophils (0.0 - 0.7 /CUMM) 0.8 0.7 Absolute Basophils (0.0 - 0.2 /CUMM) 0.1 0.1 ESR Westergren (0 - 10 MM) 54 H A/P: 47 y/o M with pmh sig for hypertension/hyperlipidemia, hx of osteomyelitis s/p multiple toe amputations including left 2nd ray (09/2017), right second ray (06/2017), and the bilateral great toe amputations about 5-6 years ago, diabetes admitted with right foot metatarsal osteomyelitis probably needing amputation. Patient scheduled for operating room with Dr. Fernandez today. Currently on no antibiotics. Will consult infectious disease. We'll follow-up on the bone cultures. Blood sugars are controlled on sliding scale insulin. Patient getting IV hydration. Please resume pharmacologic DVT prophylaxis post procedure. Please follow ID recommendations for antibiotics.
[2017-12-19 08:25] LABS: ABSOLUTE BASOPHIL COUNT 0.1 /CUMM (0.0-0.2); ABSOLUTE EOSINOPHIL COUNT 0.8 /CUMM (0.0-0.7); ABSOLUTE GRANULOCYTE CT 10.7 /CUMM (1.4-6.5); ABSOLUTE LYMPH COUNT 2.9 /CUMM (1.2-3.4); ABSOLUTE MONOCYTE COUNT 1.5 /CUMM (0.10-0.60); BASOPHIL % 0.5 % (0.0-2.0); EOSINOPHIL % 4.7 % (0-5); GRANULOCYTE % 66.9 % (42.2-75.2); HEMATOCRIT 38.1 % (42-52); MEAN CORPUSCULAR VOLUME 90.8 FL (80.0-94.0); MEAN PLATELET VOLUME 6.7 FL (7.4-10.4); PLATELET COUNT 445 /CUMM (130-400); RBC DISTRIBUTION WIDTH 14.6 % (11.5-14.5); WHITE BLOOD CELL COUNT 15.9 /CUMM (4.8-10.8)
--- NOTE | 2017-12-19 08:43 | Patient Discharge Instructions ---
Discharge Instructions General Discharge Information You were seen/treated for: Osteomyelitis right foot Watch for these problems: In case of pain, discharge, decreased sensation, fever, chills please go to the nearest emergency room Special Instructions: Please follow-up with your primary care provider/sharepoint designer developer within 1-2 weeks of discharge Please follow-up with the sharepoint designer developer within 1 week at the wound care center. Please do weekly CBC, BEP, LFT, ESR every week and follow-up results with your primary care provider Diet Continue normal diet: No Recommended Diet: Diabetic Activity Full Activity/No Limits: No Activity Self Limited: No Acute Coronary Syndrome Inclusion Criteria At DC or during hospital stay patient has or had the following: ACS DIAGNOSIS No Discharge Core Measures Meds if any: Prescribed or Continued at Discharge Meds if any: NOT Prescribed or Continued at Discharge Congestive Heart Failure Inclusion Criteria At DC or during hospital stay patient has or had the following: CHF DIAGNOSIS No Discharge Core Measures Meds if any: Prescribed or Continued at Discharge Meds if any: NOT Prescribed or Continued at Discharge Cerebrovascular accident Inclusion Criteria At DC or during hospital stay patient has or had the following: CVA/TIA Diagnosis No Discharge Core Measures Meds if any: Prescribed or Continued at Discharge Meds if any: NOT Prescribed or Continued at Discharge Venous thromboembolism Inclusion Criteria VTE Diagnosis No VTE Type NONE VTE Confirmed by (Test) NONE Discharge Core Measures - Per Current guidelines, there needs to be overlap - treatment for the first 5 days of Warfarin therapy. - If discharged on Warfarin prior to 5 days of - overlap therapy, the patient will need to be - assessed for post discharge needs including - *Post discharge parental anticoagulation - *Warfarin and/or parental anticoagulation education - *Follow up date to check INR post discharge At least 5 days overlap therapy as Inpatient No Meds if any: Prescribed or Continued at Discharge Note: Overlap Therapy is Warfarin and Anticoagulant Meds if any: NOT Prescribed or Continued at Discharge
--- NOTE | 2017-12-19 14:58 | Cons- Infect Disease ---
General Information and HPI Consulting Request Date of Consult: 12/19/17 Requested By: Beth Clark MD Reason for Consult: Nonhealing wound/osteomyelitis of the right foot Source of Information: patient, old records History of Present Illness: This is a 47-year-old man with diabetes, status post amputations of both great toes several years prior to admission, amputation of the right second toe 7 months prior to admission for a polymicrobial osteomyelitis, treated with a 4 week course of Ceftriaxone at that time, last hospitalized 2-1/2 months prior to admission with osteomyelitis of the left second toe requiring amputation with no postop antibiotics given, admitted on December 18 with a nonhealing plantar wound on the right foot with no pain, fevers or chills. On admission he was afebrile. Laboratory data revealed a white blood cell count of 18,000, BUN/creatinine 18 and 1.2. X-ray of the right foot revealed marginal irregularity about the second metatarsal shaft stump, new erosive changes involving the third metatarsal head and fractures involving the third and fourth distal metatarsals with diffuse soft tissue swelling about the forefoot stump. He was followed off antibiotics and has remained afebrile overnight. He is scheduled for the OR later today for a right transmetatarsal amputation. Allergies/Medications Allergies: Coded Allergies: venom-honey bee (UNSURE IF ALLERGIC TO BEE STINGS PER PT 10/02/17) Home Med List: Atorvastatin Calcium 10 MG TABLET 1 TAB PO QPM CHOLESTEROL (Reported) Glyburide 5 MG TABLET 1 TAB PO BID DIABETES (Reported) Lisinopril 10 MG TABLET 1 TAB PO DAILY BP (Reported) Metformin HCl 1,000 MG TABLET 1 TAB PO BID DIABETES (Reported) Past History Travel History Traveled to [place] past 21 day No Medical History Blood Transfusion Hx: No Neurological: NONE EENT: NONE Cardiovascular: hypertension, hyperlipidemia Respiratory: NONE Gastrointestinal: NONE Hepatic: NONE Renal: NONE Musculoskeletal: osteomyelitis R GREAT TOE and left great toe Psychiatric: NONE Endocrine: diabetes Blood Disorders: NONE Cancer(s): NONE PHOTOGRAPH DEVELOPER/Reproductive: NONE History of MRSA: Yes History of VRE: Yes History of CDIFF: No Isolation History: Contact Surgical History Surgical History: appendectomy, right great & 2nd toe amputation left great & 2nd toe amputation Family History Relations & Conditions If Any: GRAND MOTHER (DIABETES). Psychosocial History Where Do You Live? Home Services at Home: None Smoking Status: Current Some Day Smoker ETOH Use: denies use Illicit Drug Use: denies illicit drug use Functional Ability ADLs Independent: dressing, eating, toileting, bathing. Ambulation: independent IADLs Independent: shopping, housework, finances, food prep, telephone, transportation , medication admin. Review of Systems Review of Systems All Other Systems: Reviewed and Negative Exam & Diagnostic Data Last 24 Hrs of Vital Signs/I&O Vital Signs Date Time Temp Pulse Resp B/P B/P Pulse O2 O2 Flow FiO2 Mean Ox Delivery Rate 12/19 0845 81 130/78 12/19 0551 97.7 81 20 130/78 96 Room Air 12/18 2300 98.3 99 18 140/78 97 Room Air 12/18 2229 97.2 95 18 127/74 95 12/18 2023 Room Air 12/18 1838 98.7 113 16 147/90 95 Room Air Intake & Output 12/19 1600 12/19 0800 12/19 0000 Intake Total 565 660 Output Total 300 Balance 565 360 Intake, IV 535 600 Intake, Oral 30 60 Number 0 Bowel Movements Output, Urine 300 Patient 234 lb Weight Weight Bed scale Measurement Method Physical Exam Other Physical Findings: He is awake and alert in no acute distress. He is afebrile. Skin reveals no rash. HEENT exam is negative. Neck is supple with no adenopathy. Lungs are clear. Heart regular rhythm with no murmur. Abdomen is soft, nontender with positive bowel sounds. Back no CVA tenderness. Extremities left foot status post great and second toe amputations with no open ulcerations; right foot status post great and second toe imitations with a plantar ulcer, with some necrosis, mild erythema, warmth and edema involving the right foot and right leg. Neuro is without focality. Last 24 Hours of Lab Results: Laboratory Tests 12/19 12/18 0617 1928 Chemistry Sodium (137 - 145 mmol/L) 139 143 Potassium (3.5 - 5.1 mmol/L) 4.3 4.4 Chloride (98 - 107 mmol/L) 103 105 Carbon Dioxide (22 - 30 mmol/L) 25 24 Anion Gap (5 - 16) 11 15 BUN (9 - 20 mg/dL) 19 18 Creatinine (0.7 - 1.2 mg/dL) 1.0 1.2 Estimated GFR (>60 ml/min) > 60 > 60 BUN/Creatinine Ratio (7 - 25 %) 19.0 15.0 Glucose (65 - 99 mg/dL) 100 H Hemoglobin A1c (4.2 - 5.8 %) 7.9 H Calcium (8.4 - 10.2 mg/dL) 9.6 Total Bilirubin (0.2 - 1.3 mg/dL) 0.4 AST (17 - 59 U/L) 15 L ALT (21 - 72 U/L) 23 Alkaline Phosphatase (< 127 U/L) 92 C-Reactive Prot, Quant (<1.0 mg/dL) > 9.0 H Total Protein (6.3 - 8.2 g/dL) 6.7 Albumin (3.5 - 5.0 g/dL) 3.8 Globulin (1.9 - 4.2 gm/dL) 2.9 Albumin/Globulin Ratio (1.1 - 2.2 %) 1.3 Hematology CBC w Diff NO MAN DIFF REQ NO MAN DIFF REQ WBC (4.8 - 10.8 /CUMM) 15.9 H 17.9 H RBC (4.70 - 6.10 /CUMM) 4.20 L 4.54 L Hgb (14.0 - 18.0 G/DL) 12.6 L 13.6 L Hct (42 - 52 %) 38.1 L 40.5 L MCV (80.0 - 94.0 FL) 90.8 89.2 MCH (27.0 - 31.0 PG) 30.0 29.8 MCHC (33.0 - 37.0 G/DL) 33.0 33.4 RDW (11.5 - 14.5 %) 14.6 H 14.6 H Plt Count (130 - 400 /CUMM) 445 H 483 H MPV (7.4 - 10.4 FL) 6.7 L 6.4 L Gran % (42.2 - 75.2 %) 66.9 71.7 Lymphocytes % (20.5 - 51.1 %) 18.2 L 14.4 L Monocytes % (1.7 - 9.3 %) 9.7 H 9.5 H Eosinophils % (0 - 5 %) 4.7 4.0 Basophils % (0.0 - 2.0 %) 0.5 0.4 Absolute Granulocytes (1.4 - 6.5 /CUMM) 10.7 H 12.8 H Absolute Lymphocytes (1.2 - 3.4 /CUMM) 2.9 2.6 Absolute Monocytes (0.10 - 0.60 /CUMM) 1.5 H 1.7 H Absolute Eosinophils (0.0 - 0.7 /CUMM) 0.8 0.7 Absolute Basophils (0.0 - 0.2 /CUMM) 0.1 0.1 ESR Westergren (0 - 10 MM) 54 H Last 24 Hours of Dany Results: Blood cultures 2 December 18 negative Diagnostic Data Recent Imaging Findings: X-ray of the right foot revealed marginal irregularity about the second metatarsal shaft stump, new erosive changes involving the third metatarsal head and fractures involving the third and fourth distal metatarsals and diffuse soft tissue swelling about the forefoot stump. Assessment/Plan Assessment/Plan Impression: This is a 47-year-old man with diabetes, status post amputations of both great and second toes toes over the last several years, with a nonhealing right foot plantar ulcer for several years, admitted on December 18 apparently for a right transmetatarsal amputation, which is scheduled for later today. The chronic nonhealing wound is suggestive of a chronic osteomyelitis of the right foot, with the x-ray findings confirming the clinical suspicion, with erosive changes of the second metatarsal shaft stump and the third metatarsal head. He has no fever but does have a leukocytosis, suggesting an element of cellulitis as well. He may well be left with a residual osteomyelitis of the right foot and, therefore, will likely require a prolonged course of antibiotics postop. He can be covered empirically postoperatively with his antibiotics adjusted based on his OR cultures. Suggestion: 1. Await right transmetatarsal amputatation later today 2. Follow-up OR cultures 3. Begin Unasyn 3 g IV every 6 hours pending above Cherelle Tafoya MD will be covering over the weekend Consult Acknowledgment - Thank you for your consult request.
--- NOTE | 2017-12-19 15:53 | Operative Report ---
Operative/Inv Procedure Report Surgery Date: 12/19/17 Name of Procedure: 1 TMA right foot 2 Intra-operative administration of ankle block anesthesia 3 Excisional debridement Pre-Operative Diagnosis: 1 Osteomyelitis right forefoot Post-Operative Diagnosis: The same Estimated Blood Loss: less than 50ml Surgeon/Meat Cutting Teacher: ZAIN YORK DPM Anesthesia: moderate sedation, block Operative/Procedure Note Note: After obtaining informed consent the patient was brought to the operating room and placed on the operating table in the supine position. The patient was then securely fastened to the operating table utilizing safety belt. After administration of IV sedation, 10 mL of 0.5% Marcaine plain was infiltrated about the patient's right ankle. Right foot and ankle within scrubbed, prepped and draped in the usual aseptic manner. Attention directed the right foot, where a fishmouth-type incision was marked out encompassing the distal lesser rays. A 15 blade was utilized to develop a full-thickness flap dorsally. The dissection then continued proximally along the distal metatarsals. A sagittal bone saw was utilized performed through and through osteotomies. The distal osseous segments were freed and passed from the operative field. Specimen sent for both her biologic and pathologic inspection. The open wound was then irrigated with 3 L of normal sterile saline infused with 50,000 units of bacitracin. Following this, the foot was redraped and the surgeon's top gloves were exchanged for clean gloves. Any bleeding vessels identified were cauterized or ligated as encountered. Nipple was then packed with iodoform and 2-0 nylon retention sutures were placed. The foot was dressed with 4 x 4's, Kerlix and an Roe wrap. The patient was noted to tolerate both procedure and anesthesia well and the patient was transported from the operating room to recovery with vital signs stable.
[2017-12-19 16:00] VITALS: BP 132/80
[2017-12-19 21:16] VITALS: BP 110/70
--- NOTE | 2017-12-19 21:38 | PN- Podiatry ---
Surgical Brief Attending Note Brief Attending Note: Patient was seen and evaluated at bedside. I was called to the patient's bedside for strikethrough on the dressing from a prior transmetatarsal amputation today. The surgical bandage was reinforced by the nursing team adequately. Additional supplies or left at bedside. Please call [phone] for additional strikethrough. Will recheck in the a.m.
[2017-12-20 06:39] VITALS: BP 100/56
--- NOTE | 2017-12-20 08:18 | PN- Housestaff ---
Andres BOBO,Yesica 12/20/17 0817: Subjective Follow-up For: Right foot osteomyelitis Subjective: Patient seen and examined at bedside. No overnight events. Patient lying in his bed comfortably. He denies pain in his right foot. Review of Systems Constitutional: Reports: no symptoms, see HPI. Objective Last 24 Hrs of Vital Signs/I&O Vital Signs Date Time Temp Pulse Resp B/P B/P Pulse O2 O2 Flow FiO2 Mean Ox Delivery Rate 12/20 1001 116/70 12/20 0845 85 100/56 12/20 0639 99.0 85 18 100/56 95 12/19 2116 97.8 86 18 110/70 97 Room Air 12/19 1600 98.0 82 16 132/80 97 Room Air Intake & Output 12/20 1600 12/20 0800 12/20 0000 Intake Total 390 480 Output Total 1300 Balance -910 480 Intake, IV 150 Intake, Oral 240 480 Output, Urine 1300 Physical Exam General Appearance: Alert, Oriented X3, Cooperative Cardiovascular: Normal S1, Normal S2, No Murmurs Lungs: Clear to Auscultation Abdomen: Soft, No Tenderness, No Hepatospenomegaly Neurological: Normal Speech, Strength at 5/5 X4 Ext, Normal Tone, Sensation Intact Extremities: right foot in dressing. Denies pain Current Medications: Current Medications Sig/Kory Start time Last Medication Dose Route Stop Time Status Admin Ampicillin Sodium/ 3,000 MG Q6H 12/19 1530 AC 12/20 Sulbactam Sodium IV 12/20 1529 0841 Sodium Chloride 100 ML Atorvastatin Calcium 10 MG QPM 12/19 2100 AC 12/19 PO 2052 Dextrose/Sodium 1,000 ML Q13H 12/18 2355 DC 12/18 Chloride IV 12/19 1254 2357 Fentanyl Citrate 100 MCG .STK-MED ONE 12/19 1507 DC IM 12/19 1508 Insulin Aspart 0 TIDAC 12/20 0800 AC 12/20 SC 0842 Insulin Human Regular 0 Q6 12/18 2359 DC SC Ketorolac 30 MG .STK-MED ONE 12/19 1508 DC Tromethamine IM 12/19 1509 Lisinopril 10 MG DAILY 12/19 0900 AC 12/19 PO 0845 Midazolam HCl 2 MG .STK-MED ONE 12/19 1508 DC IM 12/19 1509 Oxycodone/ 1 TAB Q8P PRN 12/19 0600 AC 12/19 Acetaminophen PO 1947 Last 24 Hrs of Lab/Dany Results Last 24 Hrs of Labs/Mics: Laboratory Tests 12/20/17 0730: Anion Gap 11, Estimated GFR > 60, BUN/Creatinine Ratio 21.1, CBC w Diff NO MAN DIFF REQ, RBC 4.09 L, MCV 89.2, MCH 30.5, MCHC 34.2, RDW 14.5, MPV 6.5 L, Gran % 72.5, Lymphocytes % 12.2 L, Monocytes % 10.6 H, Eosinophils % 4.1, Basophils % 0.6, Absolute Granulocytes 10.2 H, Absolute Lymphocytes 1.7, Absolute Monocytes 1.5 H, Absolute Eosinophils 0.6, Absolute Basophils 0.1 Microbiology 12/19 161 EXTREMITIE: Gross Specimen Examination - RECD 12/19 1614 EXTREMITIE: Gram Stain - RECD Assessment/Plan Assessment: Mr Garcia is a 47 year old man HTN, type 2 DM, b/l great toe amputations for OM was sent by his molder feeder for evaluation of nonhealing wound on right foot. He was admitted to [facility] for infection of right foot ( 2016 ) , s/p amputation of right second toe and treated w/ abx for osteomyelitis, left foot osteomyelitis (10/12-11/12) and amuptation of second digit left foot which healed well. He has been following up with Dr. Fernandez for the non-healing wound on right foot, and was noted to have worseing symptoms in the last 24 hrs. Assessment and plan #1 right foot osteomyelitis #2 type 2 diabetes #3 hypertension * X-ray finding of right foot osteomyelitis around the second metatarsal shaft stump. * Patient had TMA right foot. We will follow up final cultures. Patient is on Unasyn. Infectious disease on board. Patient is taking diabetic diet. Patient is on NovoLog sliding scale insulin. Code-full code DVT prophylaxis-Lovenox, Alps Problem List: 1. Osteomyelitis of foot 2. HTN (hypertension) 3. T2DM (type 2 diabetes mellitus) Pain Ratin Pain Location: none Pain Goal: Remain pain free Pain Plan: tylenol Tomorrow's Labs & Rationales: rebecca Byrne MD,Lefty 12/20/17 1149: Attending MD Review Statement Attending Statement Attending MD Statement: agreed w/resident/PA/PIERCING ARTIST, reviewed EMR data (avail), discussed with nursing Attending Assessment/Plan: Patient vital signs stable and he is afebrile. His WBC count is 14.1 and chemistry labs are all within normal limits. Accu-Chek this morning is 186. Culture reports from operation theater specimen is still pending Plans to continue IV Unasyn
[2017-12-20 08:27] LABS: ABSOLUTE BASOPHIL COUNT 0.1 /CUMM (0.0-0.2); ABSOLUTE EOSINOPHIL COUNT 0.6 /CUMM (0.0-0.7); ABSOLUTE GRANULOCYTE CT 10.2 /CUMM (1.4-6.5); ABSOLUTE LYMPH COUNT 1.7 /CUMM (1.2-3.4); ABSOLUTE MONOCYTE COUNT 1.5 /CUMM (0.10-0.60); BASOPHIL % 0.6 % (0.0-2.0); EOSINOPHIL % 4.1 % (0-5); GRANULOCYTE % 72.5 % (42.2-75.2); HEMATOCRIT 36.5 % (42-52); MEAN CORPUSCULAR HGB 30.5 PG (27.0-31.0); MEAN CORPUSCULAR HGB CONC 34.2 G/DL (33.0-37.0); MEAN CORPUSCULAR VOLUME 89.2 FL (80.0-94.0); MEAN PLATELET VOLUME 6.5 FL (7.4-10.4); PLATELET COUNT 468 /CUMM (130-400); RBC DISTRIBUTION WIDTH 14.5 % (11.5-14.5); RED BLOOD CELL CT 4.09 /CUMM (4.70-6.10); WHITE BLOOD CELL COUNT 14.1 /CUMM (4.8-10.8)
--- NOTE | 2017-12-20 09:20 | PN- Podiatry ---
Surgical Brief Attending Note Brief Attending Note: Checked on palpation this morning to ensure no further strikethrough, and the patient's bandage is unchanged from yesterday. Continue with the current plan.
[2017-12-20 10:01] VITALS: BP 116/70
--- NOTE | 2017-12-20 13:21 | ULTRASOUND REPORT ---
EXAMINATION: US LOWER EXTREMITY ARTERIAL DOPPLER, bilateral CLINICAL INFORMATION: Peripheral arterial disease. Decreased pulsations. Chronic nonhealing ulcers. COMPARISON: None TECHNIQUE: Duplex Doppler arterial evaluation of right and left lower extremities. FINDINGS: Right lower extremity: Right common femoral artery peak systolic velocity is 131 cm/s with a triphasic waveform. The right profunda femoral artery has a peak systolic velocity of 73 cm/s with a triphasic waveform. The right proximal superficial femoral artery has a triphasic waveform with peak systolic velocity of 94 cm/s. The right mid superficial femoral artery has a peak systolic velocity of 141 cm/s with a triphasic waveform. The right distal superficial femoral artery has a triphasic waveform with peak systolic velocity of 100 cm/s. The right proximal popliteal artery has a triphasic waveform with peak systolic velocity of 95 cm/s. The right distal popliteal artery has a triphasic waveform with peak systolic velocity of 112 cm/s. The right proximal posterior tibial artery has a peak systolic velocity of 71 cm/s and monophasic waveform. The right proximal peroneal artery has a monophasic waveform and peak systolic velocity of 34 cm/s. The right anterior tibial artery has a peak systolic velocity of 65 cm/s and monophasic waveform. The dorsalis pedis artery has a peak slight velocity of 121 cm/s with a monophasic waveform. Left lower extremity: Left external iliac artery has a peak systolic velocity of 142 cm/s with a triphasic waveform. The left common femoral artery has a triphasic waveform with peak systolic velocity of 116 cm/s. Left profunda femoral artery has a peak systolic velocity of 91 cm/s with a triphasic waveform. The proximal superficial femoral artery has a peak systolic velocity of 89 cm/s with triphasic waveform. The mid left superficial femoral artery has a peak systolic velocity of 119 cm/s with a triphasic waveform. The distal superficial femoral artery has a peak systolic velocity of 103 cm/s with a triphasic waveform. The proximal popliteal artery has a peak systolic velocity of 51 cm/s with a triphasic waveform. Distal popliteal artery has a triphasic waveform with peak systolic velocity 53 cm/s. All 3 calf runoff vessels have triphasic waveforms. The dorsalis pedis artery has a triphasic waveform and peak systolic velocity of 62 cm/s. IMPRESSION: Normal duplex Doppler study of the left lower extremity with triphasic waveforms throughout. Right lower extremity infrapopliteal arterial vascular disease with monophasic waveforms.
[2017-12-20 13:57] VITALS: BP 124/78
--- NOTE | 2017-12-20 15:32 | PN- Infect Dx ---
Subjective Subjective: No fever. Review of Systems Comments: 12 points reviewed as anoted, otherwise negative. Objective Last 24 Hrs of Vital Signs/I&O Vital Signs Date Time Temp Pulse Resp B/P B/P Pulse O2 O2 Flow FiO2 Mean Ox Delivery Rate 12/20 1357 98.0 82 20 124/78 94 Room Air 12/20 1001 116/70 12/20 0845 85 100/56 12/20 0639 99.0 85 18 100/56 95 12/19 2116 97.8 86 18 110/70 97 Room Air 12/19 1600 98.0 82 16 132/80 97 Room Air Intake & Output 12/20 1600 12/20 0800 12/20 0000 Intake Total 850 390 480 Output Total 1300 Balance 850 -910 480 Intake, IV 150 Intake, Oral 850 240 480 Output, Urine 1300 Physical Exam Other Physical Findings: He is awake and alert in no acute distress. He is afebrile. Skin reveals no rash. HEENT exam is negative. Neck is supple with no adenopathy. Lungs are clear. Heart regular rhythm with no murmur. Abdomen is soft, nontender with positive bowel sounds. Back no CVA tenderness. Extremities left foot status post great and second toe amputations with no open ulcerations; right foot status post great and second toe imitations with a plantar ulcer, with some necrosis, mild erythema, warmth and edema involving the right foot and right leg. Neuro is without focality. Results Last 24 Hours of Lab Results: Laboratory Tests 12/20 0730 Chemistry Sodium (137 - 145 mmol/L) 138 Potassium (3.5 - 5.1 mmol/L) 5.0 Chloride (98 - 107 mmol/L) 103 Carbon Dioxide (22 - 30 mmol/L) 24 Anion Gap (5 - 16) 11 BUN (9 - 20 mg/dL) 19 Creatinine (0.7 - 1.2 mg/dL) 0.9 Estimated GFR (>60 ml/min) > 60 BUN/Creatinine Ratio (7 - 25 %) 21.1 Hematology CBC w Diff NO MAN DIFF REQ WBC (4.8 - 10.8 /CUMM) 14.1 H RBC (4.70 - 6.10 /CUMM) 4.09 L Hgb (14.0 - 18.0 G/DL) 12.5 L Hct (42 - 52 %) 36.5 L MCV (80.0 - 94.0 FL) 89.2 MCH (27.0 - 31.0 PG) 30.5 MCHC (33.0 - 37.0 G/DL) 34.2 RDW (11.5 - 14.5 %) 14.5 Plt Count (130 - 400 /CUMM) 468 H MPV (7.4 - 10.4 FL) 6.5 L Gran % (42.2 - 75.2 %) 72.5 Lymphocytes % (20.5 - 51.1 %) 12.2 L Monocytes % (1.7 - 9.3 %) 10.6 H Eosinophils % (0 - 5 %) 4.1 Basophils % (0.0 - 2.0 %) 0.6 Absolute Granulocytes (1.4 - 6.5 /CUMM) 10.2 H Absolute Lymphocytes (1.2 - 3.4 /CUMM) 1.7 Absolute Monocytes (0.10 - 0.60 /CUMM) 1.5 H Absolute Eosinophils (0.0 - 0.7 /CUMM) 0.6 Absolute Basophils (0.0 - 0.2 /CUMM) 0.1 Last 24 Hours of Dany Results: atient : MARILEE WOODWARD Acct: [id number] DR: Eduardo BOBO,Beth Birthdate: [birth year] Age/Sex: 47/M Unit: [id number] Loc: 2NB 201- 01 Status : ADM IN SPEC #: [id number] DANIKA: 12/18/17 STATUS: RES RECD: 12/18/[address]: Alonzo Boo SOURCE: BLOOD ENTR: 12/18/17 [facility] DR: Johanna Ireland SPDESC: 2ND/VENOUS ORDERED: BLOOD CULTURE Procedure Result > BLOOD CULTURE REPORT Preliminary 12/19/17 No growth after 1 day incubation. Specimen is examined continuously for 5 days before final report unless culture becomes positive. Recent Imaging Studies: X ray IMPRESSION: - New heterotopic ossification and marginal irregularity about the second metatarsal shaft stump which may reflect osteomyelitis - New erosive change involving the third metatarsal head with the third digit volarly subluxed. Osteomyelitis is favored. - Redemonstration of fractures involving the third and fourth distal metatarsals. - Diffuse soft tissue swelling about the forefoot stump. DICTATED BY: Jf Howard MD DATE/TIME DICTATED:12/18/171899 SYNTHETIC DEPARTMENT SUPERVISOR:ASMITA DATE/TIME TRANSCRIBED:12/18/171899 Assessment/Plan ID Impression: 47-year-old man with diabetes, status post amputations of both great and second toes toes over the last several years, with a nonhealing right foot plantar ulcer for several years, admitted on December 18 s/p right transmetatarsal amputation. The chronic nonhealing wound is suggestive of a chronic osteomyelitis of the right foot, with the x-ray findings confirming the clinical suspicion, with erosive changes of the second metatarsal shaft stump and the third metatarsal head. He has no fever but does have a leukocytosis, suggesting an element of cellulitis as well. He may well be left with a residual osteomyelitis of the right foot and, therefore, will likely require a prolonged course of antibiotics postop. He can be covered empirically postoperatively with antibiotics further adjusted based on his OR cultures. Suggestion: 1. Trend CBC, BMP. ESR weekly. 2. Follow-up OR cultures 3. Cont D#2 Unasyn 3 g IV every 6 hours pending above
[2017-12-20 21:52] VITALS: BP 128/70
[2017-12-21 06:39] VITALS: BP 124/68
--- NOTE | 2017-12-21 08:31 | PN- Housestaff ---
See Addendum Subjective Follow-up For: Right foot osteomyelitis Subjective: Patient reports mild R foot ache. No acute events overnight Review of Systems Constitutional: Reports: see HPI. Objective Last 24 Hrs of Vital Signs/I&O Vital Signs Date Time Temp Pulse Resp B/P B/P Pulse O2 O2 Flow FiO2 Mean Ox Delivery Rate 12/21 0810 77 124/68 12/21 0639 98.2 77 18 124/68 95 12/20 2152 99.2 85 18 128/70 94 12/20 1357 98.0 82 20 124/78 94 Room Air Intake & Output 12/21 1600 12/21 0800 12/21 0000 Intake Total 120 622 Output Total 500 Balance 120 122 Intake, IV 22 Intake, Oral 120 600 Number 0 Bowel Movements Output, Urine 500 Physical Exam General Appearance: Alert, Oriented X3, Cooperative, No Acute Distress Cardiovascular: Regular Rate, Normal S1, Normal S2 Lungs: Clear to Auscultation, Normal Air Movement Abdomen: Normal Bowel Sounds, Soft, No Tenderness Extremities: R foot dressing intact without drainage Current Medications: Current Medications Sig/Kory Start time Last Medication Dose Route Stop Time Status Admin Ampicillin Sodium/ 3,000 MG Q6H 12/19 1530 DC 12/20 Sulbactam Sodium IV 12/20 1529 0841 Sodium Chloride 100 ML Atorvastatin Calcium 10 MG QPM 12/19 2100 AC 12/20 PO 2054 Enoxaparin Sodium 40 MG DAILY 12/20 1115 AC 12/21 SC 0809 Insulin Aspart 0 TIDAC 12/20 0800 12/21 SC 1216 Lisinopril 10 MG DAILY 12/19 0900 AC 12/21 PO 0810 Morphine Sulfate 1 MG ONCE ONE 12/20 1700 DC 12/20 IV 12/20 1701 1745 Oxycodone/ 1 TAB Q8P PRN 12/19 0600 AC 12/20 Acetaminophen PO 2342 Vancomycin HCl 1,500 MG Q12H 12/21 1100 AC Sodium Chloride 250 ML IV Last 24 Hrs of Lab/Dany Results Last 24 Hrs of Labs/Mics: Laboratory Tests 12/21/17 0725: CBC w Diff NO MAN DIFF REQ, RBC 4.05 L, MCV 89.4, MCH 30.3, MCHC 33.8, RDW 14.4 , MPV 6.7 L, Gran % 67.1, Lymphocytes % 14.5 L, Monocytes % 13.2 H, Eosinophils % 4.7, Basophils % 0.5, Absolute Granulocytes 8.1 H, Absolute Lymphocytes 1.8, Absolute Monocytes 1.6 H, Absolute Eosinophils 0.6, Absolute Basophils 0.1 Assessment/Plan Assessment: Mr Garcia is a 47 year old man HTN, type 2 DM, b/l great toe amputations for OM was sent by his municipal services manager for evaluation of nonhealing wound on right foot. He was admitted to the [facility] for infection of right foot ( 2016 ) , s/p amputation of right second toe and treated w/ abx for osteomyelitis, left foot osteomyelitis (10/12-11/12) and amuptation of second digit left foot which healed well. He has been following up with Dr. Fernandez for the non-healing wound on right foot, and was noted to have worsening symptoms Assessment and plan #1 right foot osteomyelitis #2 type 2 diabetes #3 hypertension * X-ray finding of right foot osteomyelitis around the second metatarsal shaft stump. * Patient had TMA right foot. We will follow up final cultures. Patient is on Unasyn with downtrending white count. OR cultures grew Staph aureus. Infectious disease was called and recommended to add Vancomycin. Patient is taking diabetic diet. Patient is on NovoLog sliding scale insulin. Code-full code DVT prophylaxis-Brisa Stephen Problem List: 1. Osteomyelitis Pain Ratin Pain Location: R foot Pain Goal: Pain 4 or less Pain Plan: Percocet Tomorrow's Labs & Rationales: CBC
[2017-12-21 09:04] LABS: ABSOLUTE BASOPHIL COUNT 0.1 /CUMM (0.0-0.2); ABSOLUTE EOSINOPHIL COUNT 0.6 /CUMM (0.0-0.7); ABSOLUTE GRANULOCYTE CT 8.1 /CUMM (1.4-6.5); ABSOLUTE LYMPH COUNT 1.8 /CUMM (1.2-3.4); ABSOLUTE MONOCYTE COUNT 1.6 /CUMM (0.10-0.60); BASOPHIL % 0.5 % (0.0-2.0); EOSINOPHIL % 4.7 % (0-5); GRANULOCYTE % 67.1 % (42.2-75.2); HEMATOCRIT 36.2 % (42-52); MEAN CORPUSCULAR HGB 30.3 PG (27.0-31.0); MEAN CORPUSCULAR HGB CONC 33.8 G/DL (33.0-37.0); MEAN CORPUSCULAR VOLUME 89.4 FL (80.0-94.0); MEAN PLATELET VOLUME 6.7 FL (7.4-10.4); PLATELET COUNT 468 /CUMM (130-400); RBC DISTRIBUTION WIDTH 14.4 % (11.5-14.5); RED BLOOD CELL CT 4.05 /CUMM (4.70-6.10); WHITE BLOOD CELL COUNT 12.1 /CUMM (4.8-10.8)
[2017-12-21 15:50] VITALS: BP 100/56
--- NOTE | 2017-12-21 18:38 | PN- Infect Dx ---
Subjective Subjective: No fever; local R foot discomfort Review of Systems Comments: 12 points reviewed as noted., otherwise negative Objective Last 24 Hrs of Vital Signs/I&O Vital Signs Date Time Temp Pulse Resp B/P B/P Pulse O2 O2 Flow FiO2 Mean Ox Delivery Rate 12/21 1550 98.5 90 20 100/56 97 Room Air 12/21 0810 77 124/68 12/21 0639 98.2 77 18 124/68 95 12/20 2152 99.2 85 18 128/70 94 Intake & Output 12/21 1600 12/21 0800 12/21 0000 Intake Total 850 120 622 Output Total 500 Balance 850 120 122 Intake, IV 22 Intake, Oral 850 120 600 Number 0 Bowel Movements Output, Urine 500 Physical Exam Other Physical Findings: He is awake and alert in no acute distress. He is afebrile. Skin reveals no rash. HEENT exam is negative. Neck is supple with no adenopathy. Lungs are clear. Heart regular rhythm with no murmur. Abdomen is soft, nontender with positive bowel sounds. Back no CVA tenderness. Extremities left foot status post great and second toe amputations with no open ulcerations; right foot status post great and second toe imitations with a plantar ulcer, with some necrosis, mild erythema, warmth and edema involving the right foot and right leg. Neuro is without focality. Results Last 24 Hours of Lab Results: Laboratory Tests 12/21 0725 Hematology CBC w Diff NO MAN DIFF REQ WBC (4.8 - 10.8 /CUMM) 12.1 H RBC (4.70 - 6.10 /CUMM) 4.05 L Hgb (14.0 - 18.0 G/DL) 12.2 L Hct (42 - 52 %) 36.2 L MCV (80.0 - 94.0 FL) 89.4 MCH (27.0 - 31.0 PG) 30.3 MCHC (33.0 - 37.0 G/DL) 33.8 RDW (11.5 - 14.5 %) 14.4 Plt Count (130 - 400 /CUMM) 468 H MPV (7.4 - 10.4 FL) 6.7 L Gran % (42.2 - 75.2 %) 67.1 Lymphocytes % (20.5 - 51.1 %) 14.5 L Monocytes % (1.7 - 9.3 %) 13.2 H Eosinophils % (0 - 5 %) 4.7 Basophils % (0.0 - 2.0 %) 0.5 Absolute Granulocytes (1.4 - 6.5 /CUMM) 8.1 H Absolute Lymphocytes (1.2 - 3.4 /CUMM) 1.8 Absolute Monocytes (0.10 - 0.60 /CUMM) 1.6 H Absolute Eosinophils (0.0 - 0.7 /CUMM) 0.6 Absolute Basophils (0.0 - 0.2 /CUMM) 0.1 Last 24 Hours of Dany Results: SPEC #: [id number] DANIKA: 12/19/17 STATUS: RES RECD: 12/19/[address]: Marino Fernandez DPM SOURCE: [facility] ENTR: 12/19/170979 OT DR: Eduardo BOBO,Beth SPDESC: FOOT R Thanh RIBEIRO,Johanna Lucio MD, [facility] ORDERED: XTRMOR COMMENT: PIECE OF RIGHT FOOT BONE RECEIVED IN STERILE CUP ADDITIONAL INFORMATION: BONE Procedure Result > GRAM STAIN Final 12/21/17-1303 WHITE BLOOD CELLS FEW GRAM POSITIVE COCCI MODERATE > EXTREMITIES OR SPECIMEN Preliminary 12/21/17-1022 AFTER OVERNIGHT INCUBATION IN THIO BROTH: Heavy growth of: STAPH AUREUS ISOLATED Called to/Readback by NAEEM by [email or web address] 12/21/17 1021 NOTE THIS IS A PRELIMINARY REPORT: IF: patient has had significant exposure to a healthcare setting in the past three (3) months, THEN: suspect Methicillin Resistant Staph aureus and place patient on Contact precautions PENDING susceptibility results TO FOLLOW Recent Imaging Studies: reviewed Assessment/Plan ID Impression: 47-year-old man with diabetes, status post amputations of both great and second toes toes over the last several years, with a nonhealing right foot plantar ulcer for several years, admitted on December 18 s/p right transmetatarsal amputation. The chronic nonhealing wound is suggestive of a chronic osteomyelitis of the right foot, with the x-ray findings confirming the clinical suspicion, with erosive changes of the second metatarsal shaft stump and the third metatarsal head. He has no fever but does have a leukocytosis, suggesting an element of cellulitis as well. He may well be left with a residual osteomyelitis of the right foot and, therefore, will likely require a prolonged course of antibiotics postop. He can be covered empirically postoperatively with antibiotics further adjusted based on his OR cultures (preliminary S. aureus sensitivity is pending) . Suggestion: 1. Trend CBC, BMP. ESR weekly. 2. Follow-up final OR culture results 3. Pending above cont D#3 Unasyn 3 g IV every 6 hours and add iv vancomycin dosed per pharmacy; goal trough 15-20; trough 30 min before the 4th dose.
[2017-12-21 21:13] VITALS: BP 113/64
[2017-12-22 06:26] VITALS: BP 128/72
--- NOTE | 2017-12-22 08:44 | PN- Housestaff ---
See Addendum Subjective Follow-up For: Right foot osteomyelitis Subjective: Patient afebrile. No complaints or acute events overnight Review of Systems Constitutional: Reports: see HPI. Objective Last 24 Hrs of Vital Signs/I&O Vital Signs Date Time Temp Pulse Resp B/P B/P Pulse O2 O2 Flow FiO2 Mean Ox Delivery Rate 12/22 0800 76 128/72 12/22 0626 97.9 76 18 128/72 96 12/21 2113 98.7 90 20 113/64 97 12/21 1550 98.5 90 20 100/56 97 Room Air Intake & Output 12/22 1600 12/22 0800 12/22 0000 Intake Total 270 710 Output Total 300 600 Balance -30 110 Intake, IV 270 10 Intake, Oral 700 Number 0 Bowel Movements Output, Urine 300 600 Physical Exam General Appearance: Alert, Oriented X3, Cooperative, No Acute Distress Cardiovascular: Regular Rate, Normal S1, Normal S2 Lungs: Clear to Auscultation, Normal Air Movement Abdomen: Normal Bowel Sounds, Soft, No Tenderness Extremities: R foot dressing intact with serosanguinous drainage Current Medications: Current Medications Sig/Kory Start time Last Medication Dose Route Stop Time Status Admin Atorvastatin Calcium 10 MG QPM 12/19 2100 AC 12/21 PO 2010 Enoxaparin Sodium 40 MG DAILY 12/20 1115 AC 12/22 SC 0800 Insulin Aspart 0 TIDAC 12/20 0800 AC 12/22 SC 0755 Lisinopril 10 MG DAILY 12/19 0900 AC 12/22 PO 0800 Oxycodone/ 1 TAB Q8P PRN 12/19 0600 AC 12/22 Acetaminophen PO 0800 Vancomycin HCl 1,500 MG Q12H 12/21 1100 AC 12/22 Sodium Chloride 250 ML IV 1116 Last 24 Hrs of Lab/Dany Results Last 24 Hrs of Labs/Mics: Laboratory Tests 12/22/17 0600: CBC w Diff NO MAN DIFF REQ, RBC 4.07 L, MCV 89.1, MCH 30.2, MCHC 33.8, RDW 14.1 , MPV 6.9 L, Gran % 74.8, Lymphocytes % 12.4 L, Monocytes % 8.9, Eosinophils % 3.6, Basophils % 0.3, Absolute Granulocytes 10.1 H, Absolute Lymphocytes 1.7, Absolute Monocytes 1.2 H, Absolute Eosinophils 0.5, Absolute Basophils 0 Assessment/Plan Assessment: Mr Garcia is a 47 year old man HTN, type 2 DM, b/l great toe amputations for OM was sent by his interventional tech for evaluation of nonhealing wound on right foot. He was admitted to the the [facility] for infection of right foot ( 2016 ) , s/p amputation of right second toe and treated w/ abx for osteomyelitis, left foot osteomyelitis (10/12-11/12) and amuptation of second digit left foot which healed well. He has been following up with Dr. Fernandez for the non-healing wound on right foot, and was noted to have worsening symptoms Assessment and plan #1 right foot osteomyelitis #2 type 2 diabetes #3 hypertension * X-ray finding of right foot osteomyelitis around the second metatarsal shaft stump. * Patient had TMA right foot. We will follow up final cultures. Patient is on Unasyn with uptrending white count. OR cultures grew Staph aureus. We will continue Vancomycin and Unasyn as per Infectious disease. Patient is taking diabetic diet. Patient is on NovoLog sliding scale insulin. Code-full code DVT prophylaxis-Lovenox, Alps Problem List: 1. Osteomyelitis of foot Pain Ratin Pain Location: R foot Pain Goal: Pain 4 or less Pain Plan: Percocet Tomorrow's Labs & Rationales: CBC
[2017-12-22 09:15] LABS: ABSOLUTE BASOPHIL COUNT 0 /CUMM (0.0-0.2); ABSOLUTE EOSINOPHIL COUNT 0.5 /CUMM (0.0-0.7); ABSOLUTE GRANULOCYTE CT 10.1 /CUMM (1.4-6.5); ABSOLUTE LYMPH COUNT 1.7 /CUMM (1.2-3.4); ABSOLUTE MONOCYTE COUNT 1.2 /CUMM (0.10-0.60); BASOPHIL % 0.3 % (0.0-2.0); EOSINOPHIL % 3.6 % (0-5); GRANULOCYTE % 74.8 % (42.2-75.2); HEMATOCRIT 36.3 % (42-52); MEAN CORPUSCULAR HGB 30.2 PG (27.0-31.0); MEAN CORPUSCULAR HGB CONC 33.8 G/DL (33.0-37.0); MEAN CORPUSCULAR VOLUME 89.1 FL (80.0-94.0); MEAN PLATELET VOLUME 6.9 FL (7.4-10.4); PLATELET COUNT 456 /CUMM (130-400); RBC DISTRIBUTION WIDTH 14.1 % (11.5-14.5); RED BLOOD CELL CT 4.07 /CUMM (4.70-6.10); WHITE BLOOD CELL COUNT 13.5 /CUMM (4.8-10.8)
[2017-12-22 15:27] VITALS: BP 113/68
--- NOTE | 2017-12-22 17:58 | PN- Infect Dx ---
Subjective Subjective: No fever; c/o pain R middle finger; around the nail bed (swelling present). Review of Systems Comments: 12 points reviewed as noted, otherwise negative Objective Last 24 Hrs of Vital Signs/I&O Vital Signs Date Time Temp Pulse Resp B/P B/P Pulse O2 O2 Flow FiO2 Mean Ox Delivery Rate 12/22 1527 97.7 79 18 113/68 99 Room Air 12/22 0800 76 128/72 12/22 0626 97.9 76 18 128/72 96 12/21 2113 98.7 90 20 113/64 97 Intake & Output 12/22 1600 12/22 0800 12/22 0000 Intake Total 1140 270 710 Output Total 300 600 Balance 1140 -30 110 Intake, IV 300 270 10 Intake, Oral 840 700 Number 0 Bowel Movements Output, Urine 300 600 Physical Exam Other Physical Findings: He is awake and alert in no acute distress. He is afebrile. Skin reveals no rash. HEENT exam is negative. Neck is supple with no adenopathy. Lungs are clear. Heart regular rhythm with no murmur. Abdomen is soft, nontender with positive bowel sounds. Back no CVA tenderness. Extremities left foot status post great and second toe amputations. S/P R TMA; dressing in place w/ SS drainage. Neuro is without focality. Results Last 24 Hours of Lab Results: Laboratory Tests 12/22 0600 Hematology CBC w Diff NO MAN DIFF REQ WBC (4.8 - 10.8 /CUMM) 13.5 H RBC (4.70 - 6.10 /CUMM) 4.07 L Hgb (14.0 - 18.0 G/DL) 12.3 L Hct (42 - 52 %) 36.3 L MCV (80.0 - 94.0 FL) 89.1 MCH (27.0 - 31.0 PG) 30.2 MCHC (33.0 - 37.0 G/DL) 33.8 RDW (11.5 - 14.5 %) 14.1 Plt Count (130 - 400 /CUMM) 456 H MPV (7.4 - 10.4 FL) 6.9 L Gran % (42.2 - 75.2 %) 74.8 Lymphocytes % (20.5 - 51.1 %) 12.4 L Monocytes % (1.7 - 9.3 %) 8.9 Eosinophils % (0 - 5 %) 3.6 Basophils % (0.0 - 2.0 %) 0.3 Absolute Granulocytes (1.4 - 6.5 /CUMM) 10.1 H Absolute Lymphocytes (1.2 - 3.4 /CUMM) 1.7 Absolute Monocytes (0.10 - 0.60 /CUMM) 1.2 H Absolute Eosinophils (0.0 - 0.7 /CUMM) 0.5 Absolute Basophils (0.0 - 0.2 /CUMM) 0 Last 24 Hours of Dany Results: Procedure Result > GRAM STAIN Final 12/21/17-1303 WHITE BLOOD CELLS FEW GRAM POSITIVE COCCI MODERATE > EXTREMITIES OR SPECIMEN Preliminary 12/22/17-1229 AFTER OVERNIGHT INCUBATION IN THIO BROTH: Heavy growth of: STAPH AUREUS Preliminary result called to/Readback by NAEEM by [email or web address] 12/21/17 1021 NOTE THIS IS A PRELIMINARY REPORT: IF: patient has had significant exposure to a healthcare setting in the past three (3) months, THEN: suspect Methicillin Resistant Staph aureus and place patient on Contact precautions PENDING susceptibility results STILL TO FOLLOW Recent Imaging Studies: reviewed Assessment/Plan ID Impression: 7-year-old man with diabetes, status post amputations of both great and second toes toes over the last several years, with a nonhealing right foot plantar ulcer for several years, admitted on December 18 s/p right transmetatarsal amputation. The chronic nonhealing wound is suggestive of a chronic osteomyelitis of the right foot, with the x-ray findings confirming the clinical suspicion, with erosive changes of the second metatarsal shaft stump and the third metatarsal head. He has no fever but does have a leukocytosis, suggesting an element of cellulitis as well. He may well be left with a residual osteomyelitis of the right foot and, therefore, will likely require a prolonged course of antibiotics postop. He can be covered empirically postoperatively with antibiotics further adjusted based on his OR cultures (preliminary S. aureus sensitivity is still pending). 1. Suggestion: 1. Trend CBC, BMP. ESR weekly. 2. Follow-up final OR culture results 3. Pending above would restart Unasyn 3 g IV every 6 hours (appears he is not receiving it since 12/20) and D #2 iv vancomycin 1. 5 gm q 12 h dosed per pharmacy; goal trough 15-20; trough 30 min before the due dose on 12/23 in am.
[2017-12-22 21:44] VITALS: BP 122/70
[2017-12-23 05:35] VITALS: BP 100/60
--- NOTE | 2017-12-23 07:20 | PN- Housestaff ---
Andres BOBO,Yesica 12/23/17 0720: Subjective Follow-up For: osteomyelitis rt foot Review of Systems Constitutional: Reports: no symptoms, see HPI. Objective Last 24 Hrs of Vital Signs/I&O Vital Signs Date Time Temp Pulse Resp B/P B/P Pulse O2 O2 Flow FiO2 Mean Ox Delivery Rate 12/23 1044 97.9 85 16 121/79 100 Room Air 12/23 0535 98.7 72 20 100/60 94 Room Air 12/22 2144 98.0 71 20 122/70 97 Room Air 12/22 1527 97.7 79 18 113/68 99 Room Air Intake & Output 12/23 1600 12/23 0800 12/23 0000 Intake Total 350 Output Total Balance 350 Intake, IV 350 Physical Exam General Appearance: Alert, Oriented X3, Cooperative, No Acute Distress Cardiovascular: Regular Rate, Normal S1, Normal S2, No Murmurs Lungs: Clear to Auscultation Abdomen: Soft, No Tenderness, No Hepatospenomegaly Neurological: Normal Speech, Strength at 5/5 X4 Ext, Normal Tone, Sensation Intact Extremities: No Cyanosis, No Edema, Normal Pulses Current Medications: Current Medications Sig/Kory Start time Last Medication Dose Route Stop Time Status Admin Ampicillin Sodium/ 3,000 MG Q6 12/23 0600 AC 12/23 Sulbactam Sodium IV 0517 Sodium Chloride 100 ML Atorvastatin Calcium 10 MG QPM 12/19 2100 AC 12/22 PO 2053 Enoxaparin Sodium 40 MG DAILY 12/20 1115 AC 12/22 SC 0800 Insulin Aspart 0 TIDAC 12/20 0800 AC 12/22 SC 1700 Lisinopril 10 MG DAILY 12/19 0900 AC 12/22 PO 0800 Oxycodone/ 1 TAB Q8P PRN 12/19 06 AC 12/22 Acetaminophen PO 2054 Vancomycin HCl 1,500 MG Q12H 12/21 1100 AC 12/23 Sodium Chloride 250 ML IV 1038 Last 24 Hrs of Lab/Dany Results Last 24 Hrs of Labs/Mics: Laboratory Tests 12/23/17 1034: Vancomycin Trough 10.5 12/23/17 0626: CBC w Diff NO MAN DIFF REQ, RBC 4.30 L, MCV 89.1, MCH 30.0, MCHC 33.7, RDW 14.3 , MPV 6.4 L, Gran % 69.9, Lymphocytes % 13.7 L, Monocytes % 10.9 H, Eosinophils % 5.0, Basophils % 0.5, Absolute Granulocytes 8.2 H, Absolute Lymphocytes 1.6, Absolute Monocytes 1.3 H, Absolute Eosinophils 0.6, Absolute Basophils 0.1 Assessment/Plan Assessment: Mr Garcia is a 47 year old man HTN, type 2 DM, b/l great toe amputations for OM was sent by his general science teacher for evaluation of nonhealing wound on right foot. He was admitted to the [facility] for infection of right foot ( 2016 ) , s/p amputation of right second toe and treated w/ abx for osteomyelitis, left foot osteomyelitis (10/12-11/12) and amuptation of second digit left foot which healed well. He has been following up with Dr. Fernandez for the non-healing wound on right foot, and was noted to have worsening symptoms Assessment and plan #1 right foot osteomyelitis #2 type 2 diabetes #3 hypertension * X-ray finding of right foot osteomyelitis around the second metatarsal shaft stump. * Patient had TMA right foot. Patient had I & drainage of his right foot along with revision closure. Patient is on Unasyn and vancomycin. We will follow up final cultures. OR cultures grew Staph aureus. We will continue Vancomycin and Unasyn as per Infectious disease. Patient is taking diabetic diet. Patient is on NovoLog sliding scale insulin. Patient will be going home tomorrow with possible PICC line. We need to confirm with the infectious disease. According to podiatry patient should nonweightbearing right foot. The same information was relayed to the patient. Code-full code DVT prophylaxis-Brisa Stephen Problem List: 1. Osteomyelitis of foot Pain Ratin Pain Location: none Pain Goal: Remain pain free Pain Plan: tylenol Tomorrow's Labs & Rationales: rebecca Clark MD,Beth 12/23/17 1226: Attending MD Review Statement Attending Statement Attending MD Statement: examined this patient, discuss w/resident/PA/GRAPE CRUSHER, agreed w/resident/PA/GRAPE CRUSHER, reviewed EMR data (avail), discussed with nursing, discussed with case mgmt, reviewed images, amended to note Attending Assessment/Plan: Patient seen and examined, came back from his second procedure which was wound closure. Overall doing okay. Wound culture from December 19 growing staph for use. Final sensitivities are not back yet. Patient currently on IV Unasyn and IV vancomycin. Patient to get a PICC line today. Please discuss with infectious disease about the final antibiotics as well as the course. Once patient has a PICC line and antibiotics have been arranged then patient can likely be discharged. He wants to go home and do the home IV antibiotics. Continue all other current medications. Patient on Lovenox for DVT prophylaxis
[2017-12-23 07:55] LABS: ABSOLUTE BASOPHIL COUNT 0.1 /CUMM (0.0-0.2); ABSOLUTE EOSINOPHIL COUNT 0.6 /CUMM (0.0-0.7); ABSOLUTE GRANULOCYTE CT 8.2 /CUMM (1.4-6.5); ABSOLUTE LYMPH COUNT 1.6 /CUMM (1.2-3.4); ABSOLUTE MONOCYTE COUNT 1.3 /CUMM (0.10-0.60); BASOPHIL % 0.5 % (0.0-2.0); GRANULOCYTE % 69.9 % (42.2-75.2); HEMATOCRIT 38.3 % (42-52); MEAN CORPUSCULAR HGB CONC 33.7 G/DL (33.0-37.0); MEAN CORPUSCULAR VOLUME 89.1 FL (80.0-94.0); MEAN PLATELET VOLUME 6.4 FL (7.4-10.4); PLATELET COUNT 490 /CUMM (130-400); RBC DISTRIBUTION WIDTH 14.3 % (11.5-14.5); WHITE BLOOD CELL COUNT 11.8 /CUMM (4.8-10.8)
--- NOTE | 2017-12-23 09:32 | Operative Report ---
Operative/Inv Procedure Report Surgery Date: 12/23/17 Name of Procedure: 1 open incision and drainage deep to the deep fascia with exposure of the extensor and flexor tendon and tendon sheath multiple sites right foot 2 delayed primary closure of open surgical wound 3 revisional ray resections right foot 4 Achilles tendon lengthening 5 intraoperative administration of ankle block anesthesia 6 excisional debridement Pre-Operative Diagnosis: 1 open necrotic wound right foot 2 osteomyelitis right foot 3 equinus right Post-Operative Diagnosis: Same Estimated Blood Loss: less than 50ml Surgeon/Drug And Alcohol Counselor: ZAIN YORK DPM Anesthesia: moderate sedation, block Operative/Procedure Note Note: After obtaining informed consent the patient was brought to the operating room and placed on the operating table in the supine position. The patient WAS securely fastened to the operating table utilizing safety belt. After administration of IV sedation, 10 mL of 0.5% Marcaine plain was infiltrated about the patient's right ankle. The right foot and ankle within scrubbed, prepped and draped in usual aseptic manner. Attention directed distal right foot, where a large full-thickness necrotic was identified. A 15 blade was utilized sharply revised skin margins. Dissection was then carried down deep to the deep fascia with exposure of the extensor and flexor tendon and tendon sheath multiple sites, both proximally and distally. All necrotic nonviable infected tissue sharply evacuated from the wound bed. The dissection and continued to the stumps of the distal metatarsals, with the periosteum was reflected proximally. A sagittal bone saw was utilized to resect the distal 1 cm of exposed bone. Specimen sent for pathologic inspection. The open wound was then irrigated with 3 L of normal sterile saline infused with 50,000 units of bacitracin. Following this, the foot was redraped and the surgeon's top was changed clean gloves. Any bleeding vessels identified were cauterized or ligated as encountered. The plantar flap was then revised and advanced superiorly towards the central aspect of the wound. The deep tissues were held with 2-0 Vicryl. Subtenons tissues reapproximated 3-0 Vicryl. Skin edges then reapproximated 2-0 nylon and skin kathleen. Next, percutaneous triple hemisection Achilles tendon lengthening was performed with an 11 blade. The ankle was noted to dorsiflex to approximately 5 past 90. The incisions were then closed with skin kathleen. Incision dressed with Xeroform, 4 x 4's, Kerlix and an Roe wrap. The patient was noted tolerate both procedure and anesthesia well and the patient was transported from the operating room to recovery with vital signs stable.
[2017-12-23 10:44] VITALS: BP 121/79
--- NOTE | 2017-12-23 14:24 | Discharge Summary ---
Visit Information Visit Dates Admission Date: 12/18/17 Discharge Date: 12/24/17 Hospital Course Course Attending Physician: Beth Clark MD Primary Care Physician: Johanna Ireland [facility] Course: Ms. Graham is a 47yo M w/ PMH of hypertension/hyperlipidemia, hx of osteomyelitis s/p multiple toe amputations including left 2nd ray (09/2017), right second ray (06/2017), and the bilateral great toe amputations about 5-6 years ago, diabetes, s/p appendectomy remotely, sent to ER by Dr. Howell for potential OR amputation of the right metatarsal due to worsening wound healing after patient was seen at the wound center by Dr. Fernandez from his last OR event back in 09/2017. Patient had been visiting the wound center on a weekly basis, however denied any hyperbaric/wound VAC treatment, with only ongoing dressing change. Patient was supposed to go to the OR on next Friday for elective surgery of the right foot wound, however this is no admitting wound center that the patient may need immediate intervention. Patient denied any fever/chills/chest pain/wound discharge however since last discharge from hospital. Patient at baseline could ambulate with the cast on right foot without cane/assistance. Patient also endorsed noticing of right ankle swelling after taking out of the cast for the last 2 days, however denied any pain or spreading redness on the right lower extremity. Patient also complained of mild swelling around the nail of the right middle finger, however denied any trauma to the finger recently. Hospital course: Patient was admitted for right foot osteomyelitis. Initial x-ray was suspicious for osteomyelitis. Patient was seen by Dr. Torres's podiatry who did a transmetatarsal amputation of the right foot with Excisional debridement, followed by I&D and revision surgery. Patient was initially started on Unasyn and vancomycin, which was added in view of suspected MRSA, but final OR cultures grew sensitive staph aureus and hence Unasyn and vancomycin was stopped. He was seen by infectious disease specialist who started him on oxacillin 2 g every 4. He suggested to continue the antibiotic for 4 weeks. In view of that patient had a PICC line inserted. Patient diabetes was managed with NovoLog sliding scale insulin. Patient will [id number] on his right foot and can use walker at home. Patient with follow-up with podiatry within 1 week. Allergies: Coded Allergies: venom-honey bee (UNSURE IF ALLERGIC TO BEE STINGS PER PT 10/02/17) Pertinent Lab Results: Bilateral duplex ultrasound Normal duplex Doppler study of the left lower extremity with triphasic waveforms throughout. Right lower extremity infrapopliteal arterial vascular disease with monophasic waveforms. Foot x-ray November 24 - New heterotopic ossification and marginal irregularity about the second metatarsal shaft stump which may reflect osteomyelitis - New erosive change involving the third metatarsal head with the third digit volarly subluxed. Osteomyelitis is favored. - Redemonstration of fractures involving the third and fourth distal metatarsals. - Diffuse soft tissue swelling about the forefoot stump. Foot x-ray December 23 Status post partial right foot amputation. Disposition Summary Disposition Principal Diagnosis: Right foot osteomyelitis status post amputation Additional Diagnosis: none Discharge Disposition: home health services Discharge Instructions General Discharge Information Code Status: Full Code Patient's Diet: Diabetic diet Patient's Activity: Nonweightbearing right foot Follow-Up Instructions/Appts: Please follow-up with the primary care physician and patient registration supervisor within 1-2 weeks of discharge. Medications at Discharge Discharge Medications: Continue taking these medications: Metformin HCl (Metformin HCl) 1,000 MG TABLET 1 Tablet ORAL TWICE DAILY Qty = 180 Comments: NOT GIVEN IN HOSPITAL Atorvastatin Calcium (Atorvastatin Calcium) 10 MG TABLET 1 Tablet ORAL Every night Qty = 90 Comments: Last Taken: 12/24/17 Time: 19:39 Glyburide (Glyburide) 5 MG TABLET 1 Tablet ORAL TWICE DAILY Qty = 60 Comments: NOT GIVEN IN HOSPITAL ALTERNATIVE NOVOLOG SS COVERAGE GIVEN WHILE IN HOSPITAL Lisinopril (Lisinopril) 10 MG TABLET 1 Tablet ORAL DAILY Qty = 90 Comments: Last Taken:12/25/17 Time:0800 AM Start taking the following new medications: Oxacillin Sodium (Oxacillin Sodium) 2 GRAM VIAL.PORT 1 VIAL INTRAVEN Every 4 hours Qty = 168 No Refills Instructions: .. Comments: Last Taken:12/25/17 Time:1200 PM Oxycodone HCl/Acetaminophen (Percocet 5-325 MG Tablet) 5 MG-325 MG TABLET 1 Tablet ORAL EVERY SIX HOURS Qty = 12 No Refills Instructions: . Comments: Last Taken:12/25/17 Time:1200 PM Copies To: Marino Fernandez DPM; Johanna Ireland
--- NOTE | 2017-12-23 14:28 | PN- Infect Dx ---
Subjective Subjective: Afebrile. He complains of severe pain in the right foot Objective Last 24 Hrs of Vital Signs/I&O Vital Signs Date Time Temp Pulse Resp B/P B/P Pulse O2 O2 Flow FiO2 Mean Ox Delivery Rate 12/23 1240 85 121/79 12/23 1044 97.9 85 16 121/79 100 Room Air 12/23 0535 98.7 72 20 100/60 94 Room Air 12/22 2144 98.0 71 20 122/70 97 Room Air 12/22 1527 97.7 79 18 113/68 99 Room Air Intake & Output 12/23 1600 12/23 0800 12/23 0000 Intake Total 650 350 Output Total 350 Balance 300 350 Intake, IV 250 350 Intake, Oral 400 Number 0 Bowel Movements Output, Urine 350 Physical Exam Other Physical Findings: He appears mildly uncomfortable but in no acute distress Extremities right foot dressing intact Results Last 24 Hours of Lab Results: Laboratory Tests 12/23 12/23 1034 0626 Hematology CBC w Diff NO MAN DIFF REQ WBC (4.8 - 10.8 /CUMM) 11.8 H RBC (4.70 - 6.10 /CUMM) 4.30 L Hgb (14.0 - 18.0 G/DL) 12.9 L Hct (42 - 52 %) 38.3 L MCV (80.0 - 94.0 FL) 89.1 MCH (27.0 - 31.0 PG) 30.0 MCHC (33.0 - 37.0 G/DL) 33.7 RDW (11.5 - 14.5 %) 14.3 Plt Count (130 - 400 /CUMM) 490 H MPV (7.4 - 10.4 FL) 6.4 L Gran % (42.2 - 75.2 %) 69.9 Lymphocytes % (20.5 - 51.1 %) 13.7 L Monocytes % (1.7 - 9.3 %) 10.9 H Eosinophils % (0 - 5 %) 5.0 Basophils % (0.0 - 2.0 %) 0.5 Absolute Granulocytes (1.4 - 6.5 /CUMM) 8.2 H Absolute Lymphocytes (1.2 - 3.4 /CUMM) 1.6 Absolute Monocytes (0.10 - 0.60 /CUMM) 1.3 H Absolute Eosinophils (0.0 - 0.7 /CUMM) 0.6 Absolute Basophils (0.0 - 0.2 /CUMM) 0.1 Toxicology Vancomycin Trough (10.0 - 20.0 ug/mL) 10.5 Last 24 Hours of Dany Results: OR culture December 19 labeled right foot bone positive for Staph aureus sensitive to Oxacillin and diphtheroids Assessment/Plan ID Impression: Stable, with temperatures remaining normal and white blood cell count decreasing , on Unasyn and Vancomycin, added 2 days ago based on his preliminary OR culture but, with the isolation of MSSA, the Vancomycin can be discontinued. He underwent delayed closure of his wound with revisional ray resection earlier today after a right TMA 4 days ago for osteomyelitis. Have discussed with Podiatry, who feels that he does have residual osteomyelitis; therefore he will require a 4 week course of IV antibiotics. The isolation of diphtheroids is of unclear significance and suspect it represents a contaminant; therefore it should not require treatment. Suggestion: 1. Would obtain a postop baseline ESR and x-ray of the right foot 2. Would proceed with placement of a PICC 3. Discontinue Vancomycin and Unasyn 4. Begin Oxacillin 2 g IV every 4 hours
[2017-12-23 14:30] VITALS: BP 134/95
--- NOTE | 2017-12-23 19:53 | RADIOLOGY REPORT ---
EXAMINATION: XR FOOT, RIGHT CLINICAL INFORMATION: Osteomyelitis. Postop follow-up. COMPARISON: 12/18/2017. TECHNIQUE: AP, lateral, and oblique views of the right foot. FINDINGS: The patient is status post partial indication of the right foot with absence of the first metatarsal bone and the distal halves of the second through fifth metatarsals. No acute bony destruction is present. There is no ankle joint effusion. IMPRESSION: Status post partial right foot amputation.
[2017-12-23 21:47] VITALS: BP 128/82
[2017-12-24 06:56] VITALS: BP 134/78
--- NOTE | 2017-12-24 07:05 | PN- Housestaff ---
Andres BOBO,Yesica 12/24/17 0705: Subjective Follow-up For: Right foot osteomyelitis Subjective: Patient seen and examined at bedside. No overnight events. Patient denies pain in his right foot. Patient is awaiting for the PICC line insertion and possible discharge to home. Review of Systems Constitutional: Reports: no symptoms, see HPI. Objective Last 24 Hrs of Vital Signs/I&O Vital Signs Date Time Temp Pulse Resp B/P B/P Pulse O2 O2 Flow FiO2 Mean Ox Delivery Rate 12/24 0825 130/74 12/24 0656 97.8 78 18 134/78 94 12/23 2147 98.0 85 18 128/82 97 Room Air 12/23 1430 97.7 87 20 134/95 95 Room Air 12/23 1240 85 121/79 12/23 1044 97.9 85 16 121/79 100 Room Air Intake & Output 12/24 1600 12/24 0800 12/24 0000 Intake Total 500 1220 Output Total 650 500 Balance -150 720 Intake, IV 300 220 Intake, Oral 200 1000 Output, Urine 650 500 Physical Exam General Appearance: Alert, Oriented X3, Cooperative, No Acute Distress Cardiovascular: Normal S1, Normal S2, No Murmurs Lungs: Normal Air Movement Abdomen: Soft, No Tenderness, No Hepatospenomegaly Neurological: Strength at 5/5 X4 Ext, Normal Tone, Sensation Intact Extremities: RIGHT FOOT DRESSING INTACT Current Medications: Current Medications Sig/Kory Start time Last Medication Dose Route Stop Time Status Admin Ampicillin Sodium/ 3,000 MG Q6 12/23 0600 DC 12/23 Sulbactam Sodium IV 1359 Sodium Chloride 100 ML Atorvastatin Calcium 10 MG QPM 12/19 2100 AC 12/23 PO 2117 Bacitracin 0 .STK-MED ONE 12/23 1243 DC IM 12/23 1244 Bupivacaine HCl 10 ML .STK-MED ONE 12/23 1243 DC SC 12/23 1244 Enoxaparin Sodium 40 MG DAILY 12/20 1115 AC 12/24 SC 0825 Insulin Aspart 0 TIDAC 12/20 0800 AC 12/24 SC 0825 Lidocaine 20 ML .STK-MED ONE 12/23 1243 DC ID 12/23 1244 Lisinopril 10 MG DAILY 12/19 0900 AC 12/24 PO 0825 Morphine Sulfate 2 MG ONCE ONE 12/23 1400 DC 12/23 IV 12/23 1401 1406 Oxacillin Sodium 2,000 MG Q4 12/23 1800 AC 12/24 Dextrose/Water 100 ML IV 0548 Oxycodone/ 1 TAB Q6 12/23 1800 AC 12/24 Acetaminophen PO 0548 Oxycodone/ 1 TAB Q8P PRN 12/19 0600 DC 12/23 Acetaminophen PO 1240 Povidone Iodine 1 RAFI .STK-MED ONE 12/23 1243 DC TOP 12/23 1244 Sodium Chloride 10 ML .STK-MED ONE 12/23 1243 DC IV 12/23 1244 Vancomycin HCl 1,500 MG Q12H 12/21 1100 DC 12/23 Sodium Chloride 250 ML IV 1038 Last 24 Hrs of Lab/Dany Results Last 24 Hrs of Labs/Mics: Laboratory Tests 12/24/17 0708: Sodium Pending, Potassium Pending, Chloride Pending, Carbon Dioxide Pending, Anion Gap Pending, BUN Pending, Creatinine Pending, BUN/Creatinine Ratio Pending , CBC w Diff Pending, WBC Pending, RBC Pending, Hgb Pending, Hct Pending, MCV Pending, MCH Pending, MCHC Pending, RDW Pending, Plt Count Pending, MPV Pending 12/23/17 1448: ESR Westergren 36 H 12/23/17 1034: Vancomycin Trough 10.5 Assessment/Plan Assessment: Mr Garcia is a 47 year old man HTN, type 2 DM, b/l great toe amputations for OM was sent by his rubbing bed operator for evaluation of nonhealing wound on right foot. He was admitted to the [facility] for infection of right foot ( 2016 ) , s/p amputation of right second toe and treated w/ abx for osteomyelitis, left foot osteomyelitis (10/12-11/12) and amuptation of second digit left foot which healed well. He has been following up with Dr. Fernandez for the non-healing wound on right foot, and was noted to have worsening symptoms Assessment and plan #1 right foot osteomyelitis #2 type 2 diabetes #3 hypertension * X-ray finding of right foot osteomyelitis around the second metatarsal shaft stump. * Patient had TMA right foot. Patient had I & drainage of his right foot along with revision closure. Patient's OR cultures growing MSSA. Hence his Unasyn and vancomycin was stopped and was started on oxacillin 2 g every 4. Patient will have PICC line placed today and possible discharge today. Patient is taking diabetic diet. Patient is on NovoLog sliding scale insulin. According to podiatry patient should nonweightbearing right foot. The same information was relayed to the patient. Code-full code DVT prophylaxis-Lovenox, Alps I spoke to Dr. chapman over the phone who suggested to continue oxacillin for 4 more weeks every 4 with weekly follow-up of CBC, BEP, LFT, ESR. Problem List: 1. Osteomyelitis of foot Pain Ratin Pain Location: NONE Pain Goal: Remain pain free Pain Plan: TYLENOL Tomorrow's Labs & Rationales: NONE Beth Clark MD 12/24/17 1124: Attending MD Review Statement Attending Statement Attending MD Statement: examined this patient, discuss w/resident/PA/DOG BATHER, agreed w/resident/PA/DOG BATHER, reviewed EMR data (avail), discussed with nursing, discussed with case mgmt, reviewed images, amended to note Attending Assessment/Plan: Patient seen and examined, overall doing well. Patient to get a PICC line today. After the PICC line he will be medically stable for discharge home with IV antibiotic. Patient will be continued on oxacillin for total of 4 weeks. Patient to get weekly CBC, BEP, LFT and ESR but ID. Patient to follow with his primary care doctor and right pre-as an outpatient. The rest of his home medications will be continued as it.
[2017-12-24] MEDS ORDERED: OXACILLIN SODIUM2 G2 IV ×4 (08:13→10:23)
[2017-12-24 08:18] LABS: ABSOLUTE BASOPHIL COUNT 0 /CUMM (0.0-0.2); ABSOLUTE EOSINOPHIL COUNT 0.6 /CUMM (0.0-0.7); ABSOLUTE GRANULOCYTE CT 9.5 /CUMM (1.4-6.5); ABSOLUTE LYMPH COUNT 1.9 /CUMM (1.2-3.4); ABSOLUTE MONOCYTE COUNT 1.3 /CUMM (0.10-0.60); BASOPHIL % 0.4 % (0.0-2.0); EOSINOPHIL % 4.8 % (0-5); GRANULOCYTE % 71.3 % (42.2-75.2); HEMATOCRIT 36.7 % (42-52); MEAN CORPUSCULAR HGB 30.2 PG (27.0-31.0); MEAN CORPUSCULAR HGB CONC 33.8 G/DL (33.0-37.0); MEAN CORPUSCULAR VOLUME 89.3 FL (80.0-94.0); MEAN PLATELET VOLUME 6.5 FL (7.4-10.4); PLATELET COUNT 523 /CUMM (130-400); RBC DISTRIBUTION WIDTH 14.4 % (11.5-14.5); RED BLOOD CELL CT 4.11 /CUMM (4.70-6.10); WHITE BLOOD CELL COUNT 13.4 /CUMM (4.8-10.8)
[2017-12-24] MEDS ORDERED: PAIN RELIEVER650 MG PO ×2 (10:05→14:45)
[2017-12-24 13:28] VITALS: BP 123/69
--- NOTE | 2017-12-24 14:25 | PN- Infect Dx ---
Subjective Subjective: Afebrile. He has minimal discomfort in the right foot Objective Last 24 Hrs of Vital Signs/I&O Vital Signs Date Time Temp Pulse Resp B/P B/P Pulse O2 O2 Flow FiO2 Mean Ox Delivery Rate 12/24 1328 97.7 90 18 123/69 98 Room Air 12/24 0825 130/74 12/24 0656 97.8 78 18 134/78 94 12/23 2147 98.0 85 18 128/82 97 Room Air 12/23 1430 97.7 87 20 134/95 95 Room Air Intake & Output 12/24 1600 12/24 0800 12/24 0000 Intake Total 601 328 4841 Output Total 650 500 Balance 930 -150 720 Intake, IV 130 300 220 Intake, Oral 642 941 1452 Number 0 Bowel Movements Output, Urine 650 500 Physical Exam Other Physical Findings: He appears comfortable in no acute distress Extremities right foot dressing intact Results Last 24 Hours of Lab Results: Laboratory Tests 12/24 12/23 0708 1448 Chemistry Sodium (137 - 145 mmol/L) 137 Potassium (3.5 - 5.1 mmol/L) 4.7 Chloride (98 - 107 mmol/L) 101 Carbon Dioxide (22 - 30 mmol/L) 25 Anion Gap (5 - 16) 11 BUN (9 - 20 mg/dL) 20 Creatinine (0.7 - 1.2 mg/dL) 0.8 Estimated GFR (>60 ml/min) > 60 BUN/Creatinine Ratio (7 - 25 %) 25.0 Hematology CBC w Diff NO MAN DIFF REQ WBC (4.8 - 10.8 /CUMM) 13.4 H RBC (4.70 - 6.10 /CUMM) 4.11 L Hgb (14.0 - 18.0 G/DL) 12.4 L Hct (42 - 52 %) 36.7 L MCV (80.0 - 94.0 FL) 89.3 MCH (27.0 - 31.0 PG) 30.2 MCHC (33.0 - 37.0 G/DL) 33.8 RDW (11.5 - 14.5 %) 14.4 Plt Count (130 - 400 /CUMM) 523 H MPV (7.4 - 10.4 FL) 6.5 L Gran % (42.2 - 75.2 %) 71.3 Lymphocytes % (20.5 - 51.1 %) 14.0 L Monocytes % (1.7 - 9.3 %) 9.5 H Eosinophils % (0 - 5 %) 4.8 Basophils % (0.0 - 2.0 %) 0.4 Absolute Granulocytes (1.4 - 6.5 /CUMM) 9.5 H Absolute Lymphocytes (1.2 - 3.4 /CUMM) 1.9 Absolute Monocytes (0.10 - 0.60 /CUMM) 1.3 H Absolute Eosinophils (0.0 - 0.7 /CUMM) 0.6 Absolute Basophils (0.0 - 0.2 /CUMM) 0 ESR Westergren (0 - 10 MM) 36 H Last 24 Hours of Dany Results: No new cultures Recent Imaging Studies: X-ray of the right foot December 23 status post transmetatarsal amputation Assessment/Plan ID Impression: Stable, with temperatures remaining normal, but with his white blood cell count still mildly elevated, now on Oxacillin for MSSA osteomyelitis, status post delayed closure of his wound with revisional ray resection yesterday after a right TMA 5 days ago for osteomyelitis. Have discussed with Podiatry, who feels that he does have residual osteomyelitis; therefore he will require a 4 week course of IV antibiotics from his most recent debridement. Suggestion: 1. Await placement of a PICC 2. Continue Oxacillin to complete a 4 week course of treatment from his most recent debridement (until January 20) 3. Will need a weekly CBC, ESR and CMP while on Oxacillin
--- NOTE | 2017-12-24 15:24 | INTERVENTIONAL RADIOLOGY RPT ---
CLINICAL HISTORY: This patient is a 47 years old male with a history of osteomyelitis, who presents to Interventional Radiology for replacement of a single lumen PICC for central venous access. Attempts were made to place a right upper extremity PICC catheter at the bedside, however the catheter would not advance easily over the wire. PROCEDURES: Replacement of the right upper extremity PICC. PHYSICIANS: Dr. Rach Altamirano (attending). MEDICATIONS: Lidocaine 1%, 0 mL SQ. CONTRAST: 5 mL Optiray 320 FLUOROSCOPY TIME: 1.4 minutes DAP: 5.2 uGym2 COMPLICATIONS: None ESTIMATED BLOOD LOSS: Scant SPECIMENS: None IMPLANT: 5 Fr Power PICC, single lumen SITE MARKING: As part of the preprocedure verification policy, a site marking procedure was initiated. Due to the nature the procedure, the insertion site could not be predetermined thus invoking the policy of exemption to site laterality and marking. Insertion site marking was performed in the procedure room in conjunction with imaging confirmation. PROCEDURE NOTE: Informed consent was obtained from the patient prior to the procedure. During this process, the procedure and potential alternatives were explained along with the intended outcome and benefits. The risks of the procedure, including the possibility of an unsuccessful procedure, as well as the risk of not doing the procedure, were discussed. The patient was given the opportunity to ask questions regarding the procedure and appeared competent to make decisions. A signed consent form documenting this discussion was placed in the medical record. A time-out procedure was performed. The patient was placed supine on the fluoroscopy table. The right upper extremity and existing PICC were prepped and draped in the usual sterile fashion. All elements of maximal sterile barrier technique followed including use of cap, mask, sterile gown, sterile gloves, a sterile full body drape and hand hygiene. Also followed skin preparation with 2% chlorhexidine for cutaneous antisepsis, and sterile ultrasound preparation with sterile gel and probe cover when applicable. A venogram was performed through the existing right upper extremity PICC. A 0.018 Glidewire was advanced into the inferior vena cava. The existing PICC was removed and replaced with the peel away sheath. The intravascular length was measured and the catheter was trimmed to the correct length. The inner dilator was removed and the PICC was advanced over the wire into the cavoatrial junction. The peel away sheath and wire were removed. The catheter was tested successfully and secured to the skin with its tip in the cavoatrial junction. A spot image was taken. The patient tolerated the procedure well. FINDINGS: 1. Patent right upper extremity vein with prominent valves. 2. Successful placement of a 5-Fr single lumen PICC that measures 41.5 cm in length. IMPRESSION: Successful replacement of a right upper extremity PICC. PLAN: 1. The patient was stable after the procedure and was transferred to the interventional recovery area. The patient will be transferred to the floor. 2. The catheter may be used immediately.
[2017-12-24 21:51] VITALS: BP 118/70
--- NOTE | 2017-12-25 07:03 | PN- Housestaff ---
Andres BOBO,Yesica 12/25/17 0703: Subjective Follow-up For: Osteomyelitis right foot Subjective: Patient seen and examined at bedside. No overnight events. Denies any pain in his right foot Review of Systems Constitutional: Reports: no symptoms, see HPI. Objective Last 24 Hrs of Vital Signs/I&O Vital Signs Date Time Temp Pulse Resp B/P B/P Pulse O2 O2 Flow FiO2 Mean Ox Delivery Rate 12/25 0800 72 142/72 12/24 2151 98.0 82 18 118/70 94 Room Air 12/24 1328 97.7 90 18 123/69 98 Room Air 12/24 0825 130/74 Intake & Output 12/25 1600 12/25 0800 12/25 0000 Intake Total 680 1200 Output Total 600 Balance 80 1200 Intake, IV 200 200 Intake, Oral 480 1000 Output, Urine 600 Physical Exam General Appearance: Alert, Oriented X3, Cooperative, No Acute Distress Cardiovascular: Regular Rate, Normal S1, Normal S2, No Murmurs Lungs: Clear to Auscultation Abdomen: Soft Extremities: RIGHT FOOT-DRESSING, RIGHT ARM-picc LINE INTACT. nO REDNESS/ SWELLING Current Medications: Current Medications Sig/Kory Start time Last Medication Dose Route Stop Time Status Admin Atorvastatin Calcium 10 MG QPM 12/19 2100 AC 12/24 PO 1939 Enoxaparin Sodium 40 MG DAILY 12/20 1115 AC 12/25 SC 0801 Heparin Sodium 0 .STK-MED ONE 12/24 1425 DC (Porcine) IV Insulin Aspart 0 TIDAC 12/20 0800 AC 12/25 SC 0801 Ioversol 0 .STK-MED ONE 12/24 1425 DC IV Lidocaine 0 .STK-MED ONE 12/24 1425 DC .ROUTE Lisinopril 10 MG DAILY 12/19 0900 AC 12/25 PO 0800 Oxacillin Sodium 2,000 MG Q4H 12/24 1600 AC 12/25 Dextrose/Water 100 ML IV 0753 Oxacillin Sodium 2,000 MG Q4 12/23 1800 DC 12/24 Dextrose/Water 100 ML IV 1133 Oxycodone/ 1 TAB Q6 12/23 1800 AC 12/25 Acetaminophen PO 0557 Patient Medication 1 ED ONE ONE 12/24 1045 DC 12/24 Teaching ED 12/24 1046 1551 Assessment/Plan Assessment: Mr Garcia is a 47 year old man HTN, type 2 DM, b/l great toe amputations for OM was sent by his pharmaceutical analyst for evaluation of nonhealing wound on right foot. He was admitted to the [facility] for infection of right foot ( 2017 ) , s/p amputation of right second toe and treated w/ abx for osteomyelitis, left foot osteomyelitis (10/12-11/12) and amuptation of second digit left foot which healed well. He has been following up with Dr. Fernandez for the non-healing wound on right foot, and was noted to have worsening symptoms Assessment and plan #1 right foot osteomyelitis #2 type 2 diabetes #3 hypertension * Patient was treated for right foot osteomyelitis with transmetatarsal amputation. Patient will be going home today with 4 weeks of oxacillin. Patient had a PICC line inserted yesterday which appears normal with no redness. Patient is taking diabetic diet. Patient is on NovoLog sliding scale insulin. According to podiatry patient should nonweightbearing right foot. The same information was relayed to the patient. Code-full code DVT prophylaxis-Brisa Stephen Problem List: 1. Osteomyelitis of foot Pain Ratin Pain Location: NONE Pain Goal: Remain pain free Pain Plan: TYLENOL Tomorrow's Labs & Rationales: NONE Beth Clark MD 12/25/17 1110: Attending MD Review Statement Attending Statement Attending MD Statement: examined this patient, discuss w/resident/PA/LANDSCAPE ARCHITECT, agreed w/resident/PA/LANDSCAPE ARCHITECT, reviewed EMR data (avail), discussed with nursing, discussed with case mgmt, reviewed images, amended to note Attending Assessment/Plan: Patient seen and examined, denies any complaints. Received his PICC line yesterday. Getting his antibiotics. Otherwise medically stable for discharge home with IV antibiotics. Case management at aging home IV antibiotics as well as visiting nurse. One status and he can be discharged home. He will be continued on the rest of his medications. He will be given a few pills supply for Percocet. He should follow-up with podiatry Dr. Fernandez as well as his primary care doctor as an outpatient
[2017-12-25 07:45] VITALS: BP 142/70
[2017-12-25 08:00] VITALS: BP 142/72
[2017-12-25] MEDS ORDERED: OXACILLIN SODIUM2 G2 IV (09:57)
[2017-12-25] MEDS ORDERED: PAIN RELIEVER650 MG PO (09:57)
[2017-12-25] MEDS ORDERED: PERCOCET 5-3251 EACH PO (10:07)
== END 2017-12-25 13:30 | disposition home health service (06) | DRG 305 ==
LOC: ERH 18:19 → 2NB 21:40 → ERHI 21:40 → ENRESERV 22:06 → ENTRNSPT 22:29 → EDTRNSPTSTS 22:32 → EDTRNSPT 22:32 → CMPTRNSPT 22:45 → 2NB 22:54 → ENTRNSPT 12-19 16:15 → CMPTRNSPT 12-19 16:31 → DELTRNSPT 12-23 09:46 → ENTRNSPT 12-23 10:07 → EDTRNSPTSTS 12-23 10:16 → EDTRNSPT 12-23 10:16 → CMPTRNSPT 12-23 10:35 → ENPENDDIS 12-25 10:11 → 2NB 12-25 13:30
PROVIDERS: Internal Medicine Adolescent Medicine; Internal Medicine Endocrinology, Diabetes & Metabolism; Physician Assistant Medical; Student in an Organized Health Care Education/Training Program
PROC: 0Y6M0Z9 Detachment at Right Foot, Partial 1st Ray, Open Approach (ICD-10-PCS; principal; 2017-12-19)
PROC: 0Y6M0ZB Detachment at Right Foot, Partial 2nd Ray, Open Approach (ICD-10-PCS; 2017-12-19)
PROC: 0Y6M0ZC Detachment at Right Foot, Partial 3rd Ray, Open Approach (ICD-10-PCS; 2017-12-19)
PROC: 0Y6M0ZD Detachment at Right Foot, Partial 4th Ray, Open Approach (ICD-10-PCS; 2017-12-19)
PROC: 0Y6M0ZF Detachment at Right Foot, Partial 5th Ray, Open Approach (ICD-10-PCS; 2017-12-19)
PROC: 3E0T3BZ Introduction of Anesthetic Agent into Peripheral Nerves and Plexi, Percutaneous Approach (ICD-10-PCS; 2017-12-19)
PROC: 0JBQ0ZZ Excision of Right Foot Subcutaneous Tissue and Fascia, Open Approach (ICD-10-PCS; 2017-12-19)
PROC: 0Y6M0Z9 Detachment at Right Foot, Partial 1st Ray, Open Approach (ICD-10-PCS; 2017-12-23)
PROC: 0Y6M0ZB Detachment at Right Foot, Partial 2nd Ray, Open Approach (ICD-10-PCS; 2017-12-23)
PROC: 0Y6M0ZC Detachment at Right Foot, Partial 3rd Ray, Open Approach (ICD-10-PCS; 2017-12-23)
PROC: 0Y6M0ZD Detachment at Right Foot, Partial 4th Ray, Open Approach (ICD-10-PCS; 2017-12-23)
PROC: 0Y6M0ZF Detachment at Right Foot, Partial 5th Ray, Open Approach (ICD-10-PCS; 2017-12-23)
PROC: 0JQQ0ZZ Repair Right Foot Subcutaneous Tissue and Fascia, Open Approach (ICD-10-PCS; 2017-12-23)
PROC: 0L8S0ZZ Division of Right Ankle Tendon, Open Approach (ICD-10-PCS; 2017-12-23)
PROC: 3E0T3BZ Introduction of Anesthetic Agent into Peripheral Nerves and Plexi, Percutaneous Approach (ICD-10-PCS; 2017-12-23)
PROC: 0JBQ0ZZ Excision of Right Foot Subcutaneous Tissue and Fascia, Open Approach (ICD-10-PCS; 2017-12-23)
PROC: 0L8V0ZZ Division of Right Foot Tendon, Open Approach (ICD-10-PCS; 2017-12-23)
PROC: 02HV33Z Insertion of Infusion Device into Superior Vena Cava, Percutaneous Approach (ICD-10-PCS; 2017-12-24)
PROC: B5181ZA Fluoroscopy of Superior Vena Cava using Low Osmolar Contrast, Guidance (ICD-10-PCS; 2017-12-24)
DX: M86.171 Other acute osteomyelitis, right ankle and foot (principal); E11.621 Type 2 diabetes mellitus with foot ulcer; L97.419 Non-pressure chronic ulcer of right heel and midfoot with unspecified severity; E11.65 Type 2 diabetes mellitus with hyperglycemia; Z79.84 Long term (current) use of oral hypoglycemic drugs; I10 Essential (primary) hypertension; E78.5 Hyperlipidemia, unspecified; B95.61 Methicillin susceptible Staphylococcus aureus infection as the cause of diseases classified elsewhere; Z89.412 Acquired absence of left great toe; Z89.411 Acquired absence of right great toe; F17.210 Nicotine dependence, cigarettes, uncomplicated; E11.69 Type 2 diabetes mellitus with other specified complication
CPT/HCPCS: 2NBP; 87070; 87075; 87184; 36415; 36592; 73630-RT; 77001; 82436; 87040; 87071; 87147; 93005; 93010; 93925; J1642; J1644; J1650; J1885; J2001; J3370; J3490; J7040